=== PATIENT | female | born 1950 | race Caucasian/White ===

== ENCOUNTER 2016-12-23 08:44 | Outpatient (CLI) | payer MEDICARE, BC ==
--- NOTE | 2016-12-24 16:50 | Mammography Report ---
DIGITAL BILATERAL SCREENING MAMMOGRAM: 12/23/2016 HISTORY: A 66-year-old nulliparous female, asymptomatic. COMPARISON: 12/2014, 12/2013, 08/2012, 07/2011, 04/2010, 04/2009. TECHNIQUE: Routine CC and MLO projections were obtained of the breasts. FINDINGS: Parenchymal tissue within both breasts is heterogeneously dense, which may lower the sensi tivity of mammography; however, there are no dominant masses, suspicious microcalcifications, or seco ndary signs of malignancy. In comparison to the previous studies, there are no significant changes. The pattern of glandular asymmetric is stable given positioning differences. ASSESSMENT: NO MAMMOGRAPHIC EVIDENCE OF MALIGNANCY. NO SIGNIFICANT INTERVAL CHANGES. RECOMMENDATION: Screening mammography is recommended annually. BI-RADS category 1 - negative. STANDARD QUALIFYING STATEMENTS 1. This examination was reviewed with the aid of Computed-Aided Detection (CAD). 2. A negative or benign imaging report should not delay biopsy if clinically suspicious findings are present. Consider surgical consultation if warranted. More than 5% of cancers are not identified by i maging. 3. Dense breasts may obscure an underlying neoplasm. JOB #: [id number] EXT JOB #:[id number]
== END 2016-12-23 08:45 | disposition home or self-care (01) ==
LOC: DI 08:44
PROVIDERS: ATTEND Physician Assistant Medical
DX: Z12.31 Encounter for screening mammogram for malignant neoplasm of breast (principal)
CPT/HCPCS: 77067

== ENCOUNTER 2017-03-04 10:04 | Outpatient (CLI) | payer MEDICARE, BC ==
[2017-03-04 18:14] LABS: BASOPHILS % (AUTO) 0.8 %; EOSINOPHILS # (AUTO) 0.1 10^3/uL (0.0-0.7); EOSINOPHILS % (AUTO) 2.3 %; HCT - HEMATOCRIT 43.7 % (37.0-47.0); HGB - HEMOGLOBIN 14.4 g/dL (12.0-16.0); LYMPHOCYTES # (AUTO) 1.2 10^3/uL (1.5-3.5); LYMPHOCYTES % (AUTO) 20.3 %; MEAN CORPUSCULAR VOLUME 93.9 fL (81.0-99.0); MEAN PLATELET VOLUME 9.6 fL (7.9-10.8); MONOCYTES # (AUTO) 0.3 10^3/uL (0.0-1.0); MONOCYTES % (AUTO) 5.4 %; NEUTROPHILS # (AUTO) 4.3 10^3/uL (1.5-6.6); NEUTROPHILS % (AUTO) 71.2 %; NUCLEATED RED BLOOD CELLS AUTO 0.1 /100WBC; RED BLOOD COUNT 4.65 10^6/uL (4.20-5.40); RED CELL DISTRIBUTION WIDTH 13.2 % (12.0-15.0)
[2017-03-04 18:42] LABS: ALBUMIN/GLOBULIN RATIO 1.8 (1.0-2.2); BILIRUBIN,TOTAL 0.5 mg/dL (0.2-1.0); BUN - BLOOD UREA NITROGEN 22 mg/dL (6-20); CALCIUM 8.9 mg/dL (8.5-10.3); CARBON DIOXIDE - CO2 30 mmol/L (21-32); CHLORIDE 103 mmol/L (101-111); CHOL/HDL RATIO 3.3 (<4.4); CHOLESTEROL 190 mg/dL; CREATININE 0.8 mg/dL (0.4-1.0); GFR - MDRD 72 (>89); GLUCOSE 111 mg/dL (70-100); HDL CHOLESTEROL 57 mg/dL; POTASSIUM 4.1 mmol/L (3.5-5.0); SODIUM 139 mmol/L (135-145); TOTAL PROTEIN 6.8 g/dL (6.7-8.2); TRIGLYCERIDES 100 mg/dL; VLDL CHOLESTEROL 20 mg/dL
== END 2017-03-04 10:05 | disposition home or self-care (01) ==
LOC: LAB.F 10:04
PROVIDERS: ATTEND Physician Assistant Medical
DX: I10 Essential (primary) hypertension (principal); R73.09 Other abnormal glucose; E78.2 Mixed hyperlipidemia; Z79.899 Other long term (current) drug therapy
CPT/HCPCS: 36415; 80053; 80061; 84443; 85025

== ENCOUNTER 2017-12-23 15:15 | Outpatient (CLI) | payer MEDICARE, BC ==
--- NOTE | 2017-12-24 13:56 | Mammography Report ---
BILATERAL SCREENING MAMMOGRAM: 12/23/2017 COMPARISON: Mammogram 12/23/2016. INDICATION: Screening. TECHNIQUE: Routine CC and MLO projections were obtained of the breasts. FINDINGS: The breast parenchyma is extremely dense which may limit the sensitivity of mammography. No dominant mass, architectural distortion or concerning cluster of microcalcifications is seen. IMPRESSION: 1. BI-RADS CATEGORY 1 - NEGATIVE. 2. RECOMMEND ANNUAL SCREENING MAMMOGRAM. STANDARD QUALIFYING STATEMENTS: 1. This examination was reviewed with the aid of Computer-Aided Detection (CAD) . 2. A negative or benign imaging report should not delay biopsy if clinically suspicious findings are present. Consider surgical consultation if warranted. More than 5 % of cancers are not identified by imaging. 3. Dense breasts may obscure an underlying neoplasm. TD: 12/24/2017 13:55 BUDDY
== END 2017-12-23 15:16 | disposition home or self-care (01) ==
LOC: DI 15:15
PROVIDERS: ATTEND Physician Assistant Medical
DX: Z12.31 Encounter for screening mammogram for malignant neoplasm of breast (principal)
CPT/HCPCS: 77067

== ENCOUNTER 2018-03-10 08:36 | Outpatient (CLI) | payer MEDICARE, BC ==
[2018-03-10 10:44] LABS: BASOPHILS % (AUTO) 0.3 %; EOSINOPHILS # (AUTO) 0.2 10^3/uL (0.0-0.7); EOSINOPHILS % (AUTO) 4.1 %; HGB - HEMOGLOBIN 14.7 g/dL (12.0-16.0); LYMPHOCYTES # (AUTO) 1.6 10^3/uL (1.5-3.5); LYMPHOCYTES % (AUTO) 26.9 %; MEAN CORPUSCULAR HEMOGLOBIN 31.2 pg (27.0-31.0); MEAN CORPUSCULAR HGB CONC 34.4 g/dL (32.0-36.0); MEAN CORPUSCULAR VOLUME 90.6 fL (81.0-99.0); MEAN PLATELET VOLUME 9.1 fL (7.9-10.8); MONOCYTES # (AUTO) 0.5 10^3/uL (0.0-1.0); MONOCYTES % (AUTO) 8.8 %; NEUTROPHILS # (AUTO) 3.5 10^3/uL (1.5-6.6); NEUTROPHILS % (AUTO) 59.9 %; PLT - PLATELET COUNT 192 10^3/uL (130-450); RED BLOOD COUNT 4.71 10^6/uL (4.20-5.40); RED CELL DISTRIBUTION WIDTH 12.8 % (12.0-15.0); WHITE BLOOD COUNT 5.8 x10^3/uL (4.8-10.8)
[2018-03-10 11:51] LABS: ALBUMIN/GLOBULIN RATIO 1.7 (1.0-2.2); ALKALINE PHOSPHATASE 105 IU/L (42-121); ALT ALANINE AMINOTRANSFERASE 70 IU/L (10-60); AST ASPARTATE AMINOTRANSFERASE 49 IU/L (10-42); BILIRUBIN,TOTAL 0.6 mg/dL (0.2-1.0); BUN - BLOOD UREA NITROGEN 17 mg/dL (6-20); CALCIUM 8.8 mg/dL (8.5-10.3); CARBON DIOXIDE - CO2 28 mmol/L (21-32); CHLORIDE 102 mmol/L (101-111); CHOL/HDL RATIO 3.8 (<4.4); CHOLESTEROL 165 mg/dL; CREATININE 0.6 mg/dL (0.4-1.0); GFR - MDRD 100 (>89); GLUCOSE 113 mg/dL (70-100); HDL CHOLESTEROL 43 mg/dL; LDL CHOLESTEROL,CALCULATED 103 mg/dL; LDL/HDL RATIO 2.4 (<4.4); SODIUM 137 mmol/L (135-145); TOTAL PROTEIN 6.4 g/dL (6.7-8.2); VLDL CHOLESTEROL 19 mg/dL
[2018-03-11 14:47] LABS: HEPATITIS C ANTIBODY NON-REACTIVE (NON-REACTIVE)
== END 2018-03-10 08:37 | disposition home or self-care (01) ==
LOC: LAB.F 08:36
PROVIDERS: ATTEND Physician Assistant Medical
DX: I10 Essential (primary) hypertension (principal); R79.89 Other specified abnormal findings of blood chemistry; E78.2 Mixed hyperlipidemia; Z79.899 Other long term (current) drug therapy; Z78.9 Other specified health status; Z13.818 Encounter for screening for other digestive system disorders
CPT/HCPCS: 36415; 80053; 80061; 83721; 84443; 85025; 86803

== ENCOUNTER 2018-04-23 07:28 | Outpatient (CLI) | payer MEDICARE, BC ==
--- NOTE | 2018-04-23 12:25 | Ultrasound Report ---
Procedure Date: 04/23/2018 Accession Number: [id number] / [id number] Procedure: US - Head or Neck Soft Tissue CPT Code: FULL RESULT: EXAM: Head or Neck Soft Tissue DATE: 04/23/2018 8:20 AM CLINICAL HISTORY: THYROID NODULE,RIGHT,POSTMENOPAUSAL COMPARISON: None. TECHNIQUE: Real time sonographic imaging of the thyroid was performed by the respiratory care program director. Multiple union contract representative static images were saved for review. FINDINGS: THYROID GLAND: Right Lobe: 5.0 x 1.7 x 1.5 cm, volume 7 cc. Normal background echotexture. Right Lobe Nodules: Tiny cysts and solid nodules, the largest measuring 0.7 x 0.5 x 0.5 cm. No dominant suspicious nodule. Left Lobe: 4.8 x 1.5 x 0.9 cm, volume 3 cc. Normal background echotexture. Left Lobe Nodules: Tiny cysts, the largest measuring 0.7 x 0.6 x 0.4 cm.. Isthmus: 5 cm AP. Isthmic Nodules: None. LYMPH NODES: No adenopathy demonstrated in the central or lateral compartment. OTHER: None. IMPRESSION: 1. Tiny cysts and solid nodules bilaterally. No dominant suspicious nodule identified. Management recommendations are based on 2015 [place] [employer] Management Guidelines for Adult Patients with Thyroid Nodules and Differentiated Thyroid Cancer. RADIA
--- NOTE | 2018-04-23 12:26 | DEXA Report ---
Procedure Date: 04/23/2018 Accession Number: [id number] / [id number] Procedure: DEX - Dexa Spine and/or Hip CPT Code: FULL RESULT: EXAM: Dexa Spine and/or Hip DATE: 04/23/2018 8:45 AM CLINICAL HISTORY: THYROID NODULE,RIGHT,POSTMENOPAUSAL TECHNIQUE: Dual energy x-ray absorptiometry (DXA) was performed on a [employer]OT[employer] System. Regions measured are the AP Spine, femoral neck, and if needed forearm. COMPARISON: None. In accordance with the International Society for Clinical Densitometry (ISCD) guidelines, data from previous exams may be reanalyzed using current recommendations and techniques. This is done to allow a more accurate basis for comparison with the current study. FINDINGS: The data for the lumbar spine is as follows: BMD (g/cm/cm) T-SCORE Z-SCORE REGION L1 1.499 3.1 4.0 L2 1.570 3.1 4.0 L3 1.710 4.2 5.1 L4 1.613 3.4 4.3 TOTAL 1.597 3.6 4.4 NOTE: All evaluable vertebrae are used for classification The data for the hip is as follows: BMD (g/cm/cm) T-SCORE Z-SCORE REGION Neck 1.095 0.4 1.5 TOTAL 1.182 1.4 2.2 NOTE: The femoral neck or total proximal femur, whichever is lowest, is used for classification. IMPRESSION: THE WHO CLASSIFICATION BASED ON THE INTERNATIONAL REFERENCE STANDARD IS NORMAL. THE FRACTURE RISK IS NOT INCREASED. RECOMMENDATION: Patients with diagnosis of osteoporosis or osteopenia should have regular bone mineral density assessment. For those eligible for Medicare, routine testing is allowed once every 2 years. Testing frequency can be increased for patients who have rapidly progressing disease or for those who are receiving medical therapy to restore bone mass. COMMENT: World Health Organization (WHO) definitions for osteoporosis and osteopenia: NORMAL BMD: T-score at -1.0 or higher, fracture risk is low OSTEOPENIA BMD: T-score between -1.0 and -2.5, fracture risk is increased. OSTEOPOROSIS BMD: T-score at -2.5 or lower, fracture risk is high. National Osteoporosis Foundation recommends: 1. Obtain adequate dietary calcium (at least 1200 mg per day) and vitamin D (400-800 international units per day). 2. Participate, as appropriate, in regular weightbearing and muscle-strengthening exercise. 3. Avoid tobacco use and reduce alcohol and caffeine intake. 4. For more detailed information see the website at www.NOF.org.
== END 2018-04-23 07:29 | disposition home or self-care (01) ==
LOC: DI 07:28
PROVIDERS: ATTEND Physician Assistant Medical
DX: Z78.0 Asymptomatic menopausal state (principal); E04.2 Nontoxic multinodular goiter
CPT/HCPCS: 76536; 77080

== ENCOUNTER 2018-07-30 10:03 | Outpatient (CLI) | payer MEDICARE, BC ==
[2018-07-30 18:05] LABS: ALBUMIN 4.1 g/dL (3.2-5.5); BILIRUBIN,DIRECT 0.1 mg/dL (0.1-0.5); BILIRUBIN,TOTAL 0.6 mg/dL (0.2-1.0); TOTAL PROTEIN 6.7 g/dL (6.7-8.2)
== END 2018-07-30 10:04 | disposition home or self-care (01) ==
LOC: LAB.F 10:03
PROVIDERS: ATTEND Physician Assistant Medical
DX: R79.89 Other specified abnormal findings of blood chemistry (principal)
CPT/HCPCS: 36415; 80076

== ENCOUNTER 2018-11-16 08:00 | Outpatient (CLI) | payer MEDICARE, BC | END 2018-11-16 23:59 | disposition home or self-care (01) | LOC: LAB.R 08:00 | PROVIDERS: ATTEND Physician Assistant Medical | DX: J02.9 Acute pharyngitis, unspecified (principal) | CPT/HCPCS: 87070 ==

== ENCOUNTER 2019-06-16 08:20 | Outpatient (CLI) | payer MEDICARE, BC ==
--- NOTE | 2019-06-16 09:09 | Mammography Report ---
Reason: SCREENING MAMMO Procedure Date: 06/16/2019 Accession Number: [id number] / [id number] Procedure: MGS - Screening Mammo Dig Bilat CPT Code: FULL RESULT: EXAM: Screening Mammo Dig Bilat DATE: 06/16/2019 8:41 AM CLINICAL HISTORY: Routine screening TECHNIQUE: (B) - Bilateral CC and MLO views were obtained. COMPARISON: 12/23/2017, 12/23/2016, 01/09/2016, 01/08/2015 PARENCHYMAL PATTERN: (D) - The breasts demonstrate heterogeneously dense fibroglandular parenchyma bilaterally. FINDINGS: No significant interval change. There are no suspicious masses, calcifications, or areas of distortion. IMPRESSION: Negative examination. BI-RADS category 1. RECOMMENDATION: (ANNUAL) - Recommend routine annual screening mammography. BI-RADS CATEGORY: (1) - Negative. STANDARD QUALIFYING STATEMENTS: 1. This examination was not reviewed with the aid of Computer-Aided Detection (CAD). 2. A negative or benign imaging report should not preclude biopsy if clinically suspicious findings are present. 3. Dense breasts may obscure an underlying neoplasm. 4. This examination was reviewed without the aid of 3D breast imaging (tomosynthesis).
== END 2019-06-16 08:21 | disposition home or self-care (01) ==
LOC: DI.S 08:20
PROVIDERS: ATTEND Nurse Practitioner
DX: Z12.31 Encounter for screening mammogram for malignant neoplasm of breast (principal)
CPT/HCPCS: 77067

== ENCOUNTER 2019-06-16 08:26 | Outpatient (CLI) | payer MEDICARE, BC ==
[2019-06-16 17:46] LABS: BASOPHILS % (AUTO) 0.3 %; EOSINOPHILS # (AUTO) 0.2 10^3/uL (0.0-0.7); EOSINOPHILS % (AUTO) 2.9 %; HGB - HEMOGLOBIN 15.2 g/dL (12.0-16.0); LYMPHOCYTES # (AUTO) 1.5 10^3/uL (1.5-3.5); MEAN CORPUSCULAR HEMOGLOBIN 31.4 pg (27.0-31.0); MONOCYTES # (AUTO) 0.4 10^3/uL (0.0-1.0); MONOCYTES % (AUTO) 6.5 %; NEUTROPHILS # (AUTO) 3.8 10^3/uL (1.5-6.6); NEUTROPHILS % (AUTO) 64.8 %; PLT - PLATELET COUNT 214 10^3/uL (130-450); RED BLOOD COUNT 4.84 10^6/uL (4.20-5.40); RED CELL DISTRIBUTION WIDTH 12.6 % (12.0-15.0); WHITE BLOOD COUNT 5.9 x10^3/uL (4.8-10.8)
[2019-06-16 18:08] LABS: ALBUMIN 4.3 g/dL (3.2-5.5); ALBUMIN/GLOBULIN RATIO 1.7 (1.0-2.2); ALKALINE PHOSPHATASE 80 IU/L (42-121); ALT ALANINE AMINOTRANSFERASE 56 IU/L (10-60); AST ASPARTATE AMINOTRANSFERASE 47 IU/L (10-42); BILIRUBIN,TOTAL 0.7 mg/dL (0.2-1.0); BUN - BLOOD UREA NITROGEN 15 mg/dL (6-20); CALCIUM 8.8 mg/dL (8.5-10.3); CARBON DIOXIDE - CO2 29 mmol/L (21-32); CHLORIDE 101 mmol/L (101-111); CHOL/HDL RATIO 3.2 (<4.4); CHOLESTEROL 174 mg/dL; CREATININE 0.7 mg/dL (0.4-1.0); GFR - MDRD 83 (>89); GLUCOSE 106 mg/dL (70-100); HDL CHOLESTEROL 54 mg/dL; LDL CHOLESTEROL,CALCULATED 106 mg/dL; SODIUM 138 mmol/L (135-145); TOTAL PROTEIN 6.8 g/dL (6.7-8.2); VLDL CHOLESTEROL 14 mg/dL
== END 2019-06-16 08:27 | disposition home or self-care (01) ==
LOC: LAB.S 08:26
PROVIDERS: ATTEND Nurse Practitioner
DX: Z00.00 Encounter for general adult medical examination without abnormal findings (principal); E04.1 Nontoxic single thyroid nodule; E78.2 Mixed hyperlipidemia; I10 Essential (primary) hypertension; R73.01 Impaired fasting glucose; R74.8 Abnormal levels of other serum enzymes; Z79.899 Other long term (current) drug therapy
CPT/HCPCS: 36415; 80053; 80061; 83721; 84443; 85025

== ENCOUNTER 2019-08-01 08:00 | Outpatient (CLI) | payer MEDICARE, BC ==
[2019-08-01 18:45] LABS: H. PYLORIS ANTIGEN STL NEGATIVE (Negative)
== END 2019-08-01 23:59 | disposition home or self-care (01) ==
LOC: LAB.R 08:00
PROVIDERS: ATTEND Nurse Practitioner
DX: R10.9 Unspecified abdominal pain (principal); K21.9 Gastro-esophageal reflux disease without esophagitis
CPT/HCPCS: 87338

== ENCOUNTER 2019-08-24 12:26 | Day surgery (SDC) | payer MEDICARE, BC ==
[2019-08-24] MEDS ORDERED: fentaNYL 250 MCG/5 ML VIAL IVP ONE (12:27)
[2019-08-24] MEDS ORDERED: MIDAZOLAM 2 MG/2 ML VIAL IVP ONE (12:27)
[2019-08-24] MEDS ORDERED: LACTATED RINGERS 1,000 ML IV ONE ×2 (12:52→15:16)
[2019-08-24] MEDS ORDERED: LIDO GARGLE 30 ML BOTTLE PO ONE (15:11)
[2019-08-24] MEDS ORDERED: LIDO GARGLE 30 ML BOTTLE ONE (15:16)
[2019-08-24 15:53] VITALS: BP 133/70
== END 2019-08-24 12:27 | disposition home or self-care (01) ==
LOC: SDS 12:26
PROVIDERS: ATTEND Surgery
PROC: 0DB78ZX Excision of Stomach, Pylorus, Via Natural or Artificial Opening Endoscopic, Diagnostic (ICD-10-PCS; 2019-08-24)
PROC: 0DB48ZX Excision of Esophagogastric Junction, Via Natural or Artificial Opening Endoscopic, Diagnostic (ICD-10-PCS; 2019-08-24)
PROC: 0DB98ZX Excision of Duodenum, Via Natural or Artificial Opening Endoscopic, Diagnostic (ICD-10-PCS; principal; 2019-08-24 13:45)
DX: K21.0 Gastro-esophageal reflux disease with esophagitis (principal); K29.80 Duodenitis without bleeding; K29.50 Unspecified chronic gastritis without bleeding; E78.5 Hyperlipidemia, unspecified; I10 Essential (primary) hypertension; E66.3 Overweight; Z68.32 Body mass index [BMI] 32.0-32.9, adult; Z86.19 Personal history of other infectious and parasitic diseases; Z86.010 Personal history of colon polyps
CPT/HCPCS: 43239; 88305; A9270; J3010; J7120

== ENCOUNTER 2019-08-28 09:50 | Outpatient (CLI) | payer MEDICARE, BC ==
[2019-08-28] MEDS ORDERED: IOVERSOL 320 50 ML VIAL ONE (09:55)
[2019-08-28] MEDS ORDERED: IOVERSOL 320 100 ML VIAL IVP ONE ×2 (09:55→12:00)
[2019-08-28 11:25] LABS: ALBUMIN 4.2 g/dL (3.2-5.5); ALBUMIN/GLOBULIN RATIO 1.4 (1.0-2.2); BILIRUBIN,TOTAL 0.7 mg/dL (0.2-1.0); CALCIUM 8.8 mg/dL (8.5-10.3); CREATININE 0.7 mg/dL (0.4-1.0); TOTAL PROTEIN 7.1 g/dL (6.7-8.2)
[2019-08-28] MEDS ORDERED: IOVERSOL 320 50 ML VIAL PO ONE (12:00)
--- NOTE | 2019-08-28 22:16 | CT Report ---
Reason: FAM HX OF PANCREATIC CA, ABD PAIN, ELEVATED LFTS Procedure Date: 08/28/2019 Accession Number: [id number] / [id number] Procedure: CT - Abdomen/Pelvis W CPT Code: Final Report FULL RESULT: EXAM: CT ABDOMEN AND PELVIS EXAM DATE: 08/28/2019 11:59 AM. CLINICAL HISTORY: Family history of pancreatic cancer, abdominal pain, elevated liver function tests. COMPARISONS: None. TECHNIQUE: Routine helical CT imaging was performed through the abdomen and pelvis. IV contrast: Optiray 320 890 mL. Enteric contrast: Present. Reconstructions: Coronal and sagittal. In accordance with CT protocol optimization, one or more of the following dose reduction techniques were utilized for this exam: automated exposure control, adjustment of mA and/or KV based on patient size, or use of iterative reconstructive technique. FINDINGS: ABDOMEN: Liver: No significant abnormality. Stomach/Distal Esophagus: No significant abnormality. Gallbladder: Surgically absent. Bile Ducts: No pathologic biliary dilation. Small amount of pneumobilia, presumably a sequela of prior biliary sphincterotomy. Pancreas: No significant abnormality. Spleen: No significant abnormality. Kidneys: No suspicious solid appearing lesion. No hydronephrosis. Adrenals: No significant abnormality. Bowel: There is a moderate amount of retained colonic fecal material. No evidence of bowel obstruction. Severe sigmoid diverticulosis and moderate distal descending colon diverticulosis. No definite acute diverticulitis. Appendix: The appendix could not be identified with certainty. However, there are no secondary signs of appendicitis demonstrated at this time. Lymph Nodes: No pathologically enlarged nodes. Vasculature: Normal caliber aorta. Fluid: No significant free fluid. Abdominal Wall: No significant abnormality. Other: No significant abnormality. PELVIS: Uterus and Ovaries: No significant abnormality. Bladder: No significant abnormality. Lymph Nodes: No pathologically enlarged nodes. Fluid: No significant free fluid. Other: None. BONES: No suspicious bony lesions. There is moderate multilevel degenerative change within the spine. LOWER CHEST: No significant consolidation or effusion. IMPRESSION: 1. No acute abdominal or pelvic abnormality. 2. Prior cholecystectomy without pathologic biliary dilation. 3. There is severe sigmoid diverticulosis and moderate to severe distal descending colon diverticulosis without evidence of acute diverticulosis. There is no evidence of bowel obstruction. Moderate amount of retained colonic fecal matter is noted, suggestive of constipation. RADIA
== END 2019-08-28 09:51 | disposition home or self-care (01) ==
LOC: LAB 09:50
PROVIDERS: ATTEND Nurse Practitioner
DX: Z00.00 Encounter for general adult medical examination without abnormal findings (principal); E04.1 Nontoxic single thyroid nodule; E78.2 Mixed hyperlipidemia; Z79.899 Other long term (current) drug therapy; R73.01 Impaired fasting glucose; R79.89 Other specified abnormal findings of blood chemistry; I10 Essential (primary) hypertension; Z80.0 Family history of malignant neoplasm of digestive organs; R10.9 Unspecified abdominal pain
CPT/HCPCS: 36415; 74177; 80053; Q9967

== ENCOUNTER 2019-09-27 10:45 | Outpatient (CLI) | payer MEDICARE, BC ==
[2019-09-27] MEDS ORDERED: BARIUM SULFATE 148 GM POWDER PO ONE (13:51)
--- NOTE | 2019-09-27 16:11 | XRAY Report ---
Reason: ABDOMINAL PAIN Procedure Date: 09/27/2019 Accession Number: [id number] / [id number] Procedure: FL - Small Bowel Follow Through CPT Code: Final Report FULL RESULT: EXAM: SMALL BOWEL FOLLOW-THROUGH EXAM DATE: 09/27/2019 01:50 PM. CLINICAL HISTORY: ABDOMINAL PAIN. COMPARISONS: ABDOMEN/PELVIS W/ 08/28/2019 11:55 AM. TECHNIQUE: Routine small bowel follow-through technique. Fluoroscopy Time: 2 minutes 44 seconds. Number of images: 15 FINDINGS: Preliminary [employer] scout film: Surgical clips right upper quadrant. Degenerative change in the spine with mild lumbar dextroscoliosis. Duodenum: Normal duodenal mucosal pattern. No ulcers or diverticula identified. Jejunum: Normal mucosal pattern. No masses or obstruction. Ileum: Normal mucosal pattern. No masses or obstruction. The ileocecal valve is normal with passage of contrast into the cecum identified. Other: None. IMPRESSION: Normal small bowel follow-through. RADIA
== END 2019-09-27 10:46 | disposition home or self-care (01) ==
LOC: DI 10:45
PROVIDERS: ATTEND Surgery
DX: R10.9 Unspecified abdominal pain (principal)
CPT/HCPCS: 74250

== ENCOUNTER 2020-06-28 09:31 | Outpatient (CLI) | payer MEDICARE, BC ==
[2020-06-28 15:42] LABS: BASOPHILS % (AUTO) 0.2 %; EOSINOPHILS # (AUTO) 0.1 10^3/uL (0.0-0.7); EOSINOPHILS % (AUTO) 1.8 %; HGB - HEMOGLOBIN 15.5 g/dL (12.0-16.0); LYMPHOCYTES # (AUTO) 1.3 10^3/uL (1.5-3.5); LYMPHOCYTES % (AUTO) 26.7 %; MEAN CORPUSCULAR HEMOGLOBIN 32.4 pg (27.0-31.0); MEAN CORPUSCULAR VOLUME 95.2 fL (81.0-99.0); MEAN PLATELET VOLUME 10.5 fL (7.9-10.8); MONOCYTES # (AUTO) 0.3 10^3/uL (0.0-1.0); MONOCYTES % (AUTO) 6.6 %; NEUTROPHILS # (AUTO) 3.2 10^3/uL (1.5-6.6); NEUTROPHILS % (AUTO) 64.3 %; PLT - PLATELET COUNT 187 10^3/uL (130-450); RED BLOOD COUNT 4.79 10^6/uL (4.20-5.40); RED CELL DISTRIBUTION WIDTH 12.3 % (12.0-15.0)
[2020-06-28 15:46] LABS: ALBUMIN 4.5 g/dL (3.2-5.5); ALKALINE PHOSPHATASE 70 IU/L (42-121); ALT ALANINE AMINOTRANSFERASE 57 IU/L (10-60); AST ASPARTATE AMINOTRANSFERASE 41 IU/L (10-42); BILIRUBIN,TOTAL 0.9 mg/dL (0.2-1.0); BUN - BLOOD UREA NITROGEN 17 mg/dL (6-20); CALCIUM 9.1 mg/dL (8.5-10.3); CARBON DIOXIDE - CO2 28 mmol/L (21-32); CHLORIDE 100 mmol/L (101-111); CHOL/HDL RATIO 3.7 (<4.4); CHOLESTEROL 224 mg/dL; CREATININE 0.7 mg/dL (0.4-1.0); GLUCOSE 107 mg/dL (70-100); HDL CHOLESTEROL 60 mg/dL; LDL CHOLESTEROL,CALCULATED 141 mg/dL; LDL/HDL RATIO 2.4 (<4.4); SODIUM 137 mmol/L (135-145); TOTAL PROTEIN 6.8 g/dL (6.7-8.2); VLDL CHOLESTEROL 23 mg/dL
== END 2020-06-28 09:32 | disposition home or self-care (01) ==
LOC: LAB.S 09:31
PROVIDERS: ATTEND Nurse Practitioner
DX: I10 Essential (primary) hypertension (principal); R79.89 Other specified abnormal findings of blood chemistry; E78.2 Mixed hyperlipidemia
CPT/HCPCS: 36415; 80053; 80061; 83721; 84443; 85025

== ENCOUNTER 2020-11-01 06:16 | Day surgery (SDC) | payer MEDICARE, BC ==
[2020-11-01] MEDS ORDERED: LACTATED RINGERS 1,000 ML IV ONE ×2 (06:24→09:01)
[2020-11-01] MEDS ORDERED: MIDAZOLAM 2 MG/2 ML VIAL ONE ×4 (08:25→08:58)
[2020-11-01] MEDS ORDERED: fentaNYL 250 MCG/5 ML VIAL ONE (08:25)
[2020-11-01 09:18] VITALS: BP 124/73
== END 2020-11-01 06:17 | disposition home or self-care (01) ==
LOC: SDS 06:16
PROVIDERS: ATTEND Surgery
DX: Z12.11 Encounter for screening for malignant neoplasm of colon (principal); K57.30 Diverticulosis of large intestine without perforation or abscess without bleeding; K64.8 Other hemorrhoids; R23.3 Spontaneous ecchymoses; I10 Essential (primary) hypertension; Z86.010 Personal history of colon polyps
CPT/HCPCS: G0105; J3010; J7120

== ENCOUNTER 2020-11-19 09:57 | Outpatient (CLI) | payer MEDICARE, BC ==
--- NOTE | 2020-11-19 16:41 | Mammography Report ---
BILATERAL DIGITAL SCREENING MAMMOGRAM 3D/2D: 11/19/2020 CLINICAL: Routine screening. Comparison is made to exams dated: 06/16/2019 mammogram, 12/23/2017 mammogram, 12/23/2016 mammogram, 12/12 mammogram, and 01/08/2015 mammogram - [facility]. The tissue of both breasts is heterogeneously dense. This may lower the sensitivity of mammography. There is an oval focal asymmetry with an obscured margin in the left breast central to the nipple pos terior depth. No other significant masses, calcifications, or other findings are seen in either breast. IMPRESSION: INCOMPLETE: NEEDS ADDITIONAL IMAGING EVALUATION The oval focal asymmetry in the left breast is indeterminate. Additional views with possible ultrasound are recommended. This exam was interpreted at Station ID: [id number]. NOTE: For mammograms, a report in lay terms will be sent to the patient. Approximately 15% of breast malignancies will not be visualized mammographically. In the management of a palpable breast mass, a negative mammogram must not discourage biopsy of a clinically suspicious lesion. Electronically Signed By: Andrez Mccormick M.D. slc/:11/19/2020 16:17:22 ACR BI-RADS Category 0: Incomplete 3340F PARENCHYMAL PATTERN: (D) - The breast(s) demonstrate(s) heterogeneously dense fibroglandular lalito glynn. BI-RADS CATEGORY: (0) - 0 Mammo and US [id number] Immediate follow-up LATERALITY: (B)
== END 2020-11-19 09:58 | disposition home or self-care (01) ==
LOC: DI.S 09:57
DX: Z12.31 Encounter for screening mammogram for malignant neoplasm of breast (principal)

== ENCOUNTER 2020-12-11 10:51 | Outpatient (CLI) | payer MEDICARE, BC ==
--- NOTE | 2020-12-12 09:47 | Mammography Report ---
UNILATERAL LEFT DIGITAL DIAGNOSTIC MAMMOGRAM 3D/2D: 12/11/2020 CLINICAL: Patient returns today to evaluate a focal asymmetry in the left breast. Comparison is made to exams dated: 11/19/2020 mammogram, 06/16/2019 mammogram, 12/23/2017 mammogram, 12/23 mammogram, 01/09/2016 mammogram, and 01/08/2015 mammogram - [facility]. The ti ssue of left breast is heterogeneously dense. This may lower the sensitivity of mammography. Focal asymmetry in the left breast central to the nipple posterior depth. This is not seen in additi onal views. No other significant masses or calcifications are seen in the breast. IMPRESSION: NEGATIVE There is no mammographic evidence of malignancy. Focal asymmetry does not persist on additional views and is consistent with overlapping fibroglandula r tissue. A 1 year screening mammogram is recommended. Exam findings were conveyed to the patient. This exam was interpreted at Station ID: [id number]. NOTE: For mammograms, a report in lay terms will be sent to the patient. Approximately 15% of breast malignancies will not be visualized mammographically. In the management of a palpable breast mass, a negative mammogram must not discourage biopsy of a clinically suspicious lesion. Electronically Signed By: Andrez Mccormick M.D. slc/:12/11/2020 11:21:08 ACR BI-RADS Category 1: Negative 3341F PARENCHYMAL PATTERN: (D) - The breast(s) demonstrate(s) heterogeneously dense fibroglandular lalito glynn. BI-RADS CATEGORY: (1) - 1 RECOMMENDATION: (ANNUAL) - Recommend routine annual screening mammography. [id number] 1 year screening LATERALITY: (B)
== END 2020-12-11 10:52 | disposition home or self-care (01) ==
LOC: DI 10:51
PROVIDERS: ATTEND Nurse Practitioner
DX: R92.8 Other abnormal and inconclusive findings on diagnostic imaging of breast (principal)

== ENCOUNTER 2021-04-12 16:25 | Emergency (ER) | payer MEDICARE, BC ==
[2021-04-12 16:56] LABS: BASOPHILS % (AUTO) 0.1 %; EOSINOPHILS # (AUTO) 0.1 10^3/uL (0.0-0.7); EOSINOPHILS % (AUTO) 0.9 %; HCT - HEMATOCRIT 44.4 % (37.0-47.0); LYMPHOCYTES # (AUTO) 1.2 10^3/uL (1.5-3.5); LYMPHOCYTES % (AUTO) 13.5 %; MEAN CORPUSCULAR HEMOGLOBIN 31.4 pg (27.0-31.0); MEAN CORPUSCULAR HGB CONC 33.8 g/dL (32.0-36.0); MEAN CORPUSCULAR VOLUME 92.9 fL (81.0-99.0); MEAN PLATELET VOLUME 10.3 fL (7.9-10.8); MONOCYTES # (AUTO) 0.6 10^3/uL (0.0-1.0); MONOCYTES % (AUTO) 6.8 %; NEUTROPHILS # (AUTO) 6.7 10^3/uL (1.5-6.6); NEUTROPHILS % (AUTO) 78.3 %; PLT - PLATELET COUNT 181 10^3/uL (130-450); RED BLOOD COUNT 4.78 10^6/uL (4.20-5.40); RED CELL DISTRIBUTION WIDTH 13.7 % (12.0-15.0); WHITE BLOOD COUNT 8.5 x10^3/uL (4.8-10.8)
[2021-04-12 17:10] LABS: ALBUMIN 4.3 g/dL (3.2-5.5); ALBUMIN/GLOBULIN RATIO 1.2 (1.0-2.2); BILIRUBIN,TOTAL 1.7 mg/dL (0.2-1.0); CREATININE 0.5 mg/dL (0.4-1.0); POTASSIUM 3.6 mmol/L (3.5-5.0); TOTAL PROTEIN 7.8 g/dL (6.7-8.2)
[2021-04-12 17:41] LABS: BILIRUBIN,URINE NEGATIVE (NEGATIVE); GLUCOSE, URINE (UA) NEGATIVE (NEGATIVE); KETONES,URINE (UA) NEGATIVE (NEGATIVE); LEUKOCYTE ESTERASE, URINE NEGATIVE (NEGATIVE); NITRITE,URINE NEGATIVE (NEGATIVE); OCCULT BLOOD,URINE MODERATE (NEGATIVE); PH,URINE 6.5 PH (5.0-7.5); PROTEIN,URINE NEGATIVE (NEGATIVE); UROBILINOGEN,URINE 0.2 (NORMAL) E.U./dL (NORMAL)
[2021-04-12 17:42] LABS: CLARITY,URINE CLEAR (CLEAR)
[2021-04-12 18:01] LABS: BACTERIA,URINE Rare /HPF (None Seen); SQUAMOUS EPITHELIAL CELL,UR RARE Squamous (<= Few); WBC,URINE 0-3 /HPF (0-5)
--- NOTE | 2021-04-12 18:06 | ED Physician Documentation ---
PD HPI ABD PAIN - Stated complaint Stated Complaint: ABD PX - Chief complaint Chief Complaint: Abd Pain - History obtained from History obtained from: Patient - History of Present Illness Timing - onset: How many months ago (1-2) Timing - details: Gradual onset, Still present (more consistent and persistent the last week.), Intermittant Quality: Cramping, Aching, Pain Location: Epigastric Radiation: Upper back. No: Chest, Right flank Improved by: Laying still Worsened by: Eating, Palpation. No: Breathing Associated symptoms: Nausea, Loss of appetite, Weight loss (mild). No: Fever, Vomiting, Diarrhea, Melena, Chest pain Similar symptoms before: Has not had sx before Recently seen: Not recently seen Review of Systems Constitutional: denies: Fever, Chills Nose: denies: Rhinorrhea / runny nose, Congestion Throat: denies: Sore throat Respiratory: denies: Cough GI: reports: Abdominal Pain, Nausea. denies: Abdominal Swelling, Vomiting, Constipation, Diarrhea : denies: Dysuria, Frequency Skin: denies: Rash, Lesions Neurologic: reports: Generalized weakness PD PAST MEDICAL HISTORY - Past Medical History Past Medical History: Yes Cardiovascular: Hypertension, High cholesterol Respiratory: None Endocrine/Autoimmune: None GI: GERD, Colon polyps, Hepatitis, Diverticulitis, Cholelithiasis : None HEENT: None Psych: None Musculoskeletal: Osteoarthritis Derm: None - Past Surgical History Past Surgical History: Yes General: Cholecystectomy, Appendectomy Ortho: Spine surgery HEENT: Rhinoplasty, Tonsil/Adenoidectomy - Present Medications Home Medications: Ambulatory Orders Medication Instructions Recorded Confirmed hydroCHLOROthiazide [Hydrodiuril] 12.5 mg PO DAILY 09/11/15 04/12/21 Omeprazole Magnesium 20 mg PO PRN PRN 08/24/19 04/12/21 Naproxen Sodium [Naprelan] 375 mg PO BID PRN #15 tab 04/13/21 Ondansetron Odt [Zofran] 4 mg TL Q6H PRN #10 tablet 04/13/21 oxyCODONE [Roxicodone] 5 mg PO Q4-6H PRN #18 tablet 04/13/21 - Allergies Allergies/Adverse Reactions: Allergies Allergy/AdvReac Type Severity Reaction Status Date / Time codeine Allergy Nausea Verified 04/12/21 16:41 shellfish derived AdvReac Emesis Verified 04/12/21 16:41 - Social History Does the pt smoke?: No Smoking Status: Never smoker Does the pt drink ETOH?: Yes ETOH Use: Wine, Beer, Liquor Does the pt have substance abuse?: No - Immunizations Immunizations are current?: Yes - POLST Patient has POLST: Yes PD ED PE NORMAL - Vitals Vital signs reviewed: Yes - General General: Alert and oriented X 3, No acute distress, Well developed/nourished - HEENT HEENT: PERRL (nonicteric), Pharynx benign - Neck Neck: Supple, no meningeal sign, No adenopathy - Cardiac Cardiac: RRR, No murmur - Respiratory Respiratory: Clear bilaterally - Abdomen Abdomen: Normal bowel sounds, Soft, Non distended, Other (tender epigastric and RUQ area. ) - Female Female : Deferred - Rectal Rectal: Deferred - Back Back: No CVA TTP - Derm Derm: Normal color, Warm and dry - Extremities Extremities: No edema, No calf tenderness / cord - Neuro Neuro: Alert and oriented X 3, No motor deficit, Normal speech Results - Vitals Vitals: Oxygen O2 Source Room air - Labs Labs: Laboratory Tests 04/12/21 04/12/21 04/12/21 16:48 16:53 16:53 WBC 8.5 RBC 4.78 Hgb 15.0 Hct 44.4 MCV 92.9 MCH 31.4 H MCHC 33.8 RDW 13.7 Plt Count 181 MPV 10.3 Neut # (Auto) 6.7 H Lymph # (Auto) 1.2 L Griggs # (Auto) 0.6 Eos # (Auto) 0.1 Baso # (Auto) 0.0 Absolute Nucleated RBC 0.00 Nucleated RBC % 0.0 Sodium 135 Potassium 3.6 Chloride 98 L Carbon Dioxide 26 Anion Gap 11.0 BUN 11 Creatinine 0.5 Estimated GFR (MDRD) 122 Glucose 108 H Calcium 9.0 Total Bilirubin 1.7 H AST 203 H ALT 314 H Alkaline Phosphatase 862 H Total Protein 7.8 Albumin 4.3 Globulin 3.5 Albumin/Globulin Ratio 1.2 Lipase 48 Urine Color YELLOW Urine Clarity CLEAR Urine pH 6.5 Ur Specific Strong 1.010 Urine Protein NEGATIVE Urine Glucose (UA) NEGATIVE Urine Ketones NEGATIVE Urine Occult Blood MODERATE H Urine Nitrite NEGATIVE Urine Bilirubin NEGATIVE Urine Urobilinogen 0.2 (NORMAL) Ur Leukocyte Esterase NEGATIVE Urine RBC 6-10 H Urine WBC 0-3 Ur Squamous Epith Cells RARE Squamous Urine Bacteria Rare Ur Microscopic Review INDICATED Urine Culture Comments NOT INDICATED - Rads (name of study) upper abd U/S Radiology: Prelim report reviewed (CBD 9 mm, with dilated intrahepatic ducts. s/p cholcystectomy. ), See rad report PD MEDICAL DECISION MAKING - ED course Complexity details: reviewed results, re-evaluated patient (pain much improved with meds. Patient is comfortable with outpatient meds/follow up, given info that GI does not feel emergent intervention needed (would not do scope over the weekend unless worse).), considered differential, d/w patient, d/w franchise field consultant (Talked with GI at [facility], who felt patient did not need hospitalization, given the moderate elevation of numbers over longer time, with pain controllable. Presume ductal flow limitation (stricture/scarring/sludge) and will need eval/likely ERCP, but can be done urgently outpatient. Requests CT) Departure - Departure Disposition: 01 Home, Self Care Clinical Impression: Upper abdominal pain, Elevated liver function tests, Bile duct abnormality Condition: Stable Record reviewed to determine appropriate education?: Yes Follow-Up: Lana Mercado ARNP [Primary Care Provider] - Eugenia Camarillo DO [Physician No Access] - Prescriptions: Naproxen Sodium [Naprelan] 375 mg PO BID PRN #15 tab PRN Reason: Pain oxyCODONE [Roxicodone] 5 mg PO Q4-6H PRN #18 tablet PRN Reason: Pain Ondansetron Odt [Zofran] 4 mg TL Q6H PRN #10 tablet PRN Reason: Nausea / Vomiting Comments: Your liver function tests are elevated and your ultrasound and CT scan both show some dilation of the common bile duct and the intrahepatic ducts. This suggests you have some impaired flow through the common bile duct causing back pressuring. There is no signs of elevation or inflammation of the pancreas matteo sandoval. Liquid diet mainly over the next few days with no fatty foods in particular. Use ondansetron if needed for nausea. Naproxen anti-inflammatory twice daily for the next several days to week. To that add oxycodone if needed for worse pain. Call Dr. Camarillo's office, gastroenterology at the [facility] phone number [phone] first thing Thursday to arrange a close follow-up. When you contact the office, make it initially clear that you were seen in the emergency room and we talked with Dr. Camarillo who is on-call and she wanted to see you promptly in the office and so to have been very urgent follow-up appointment. Return to the ER if worsening symptoms including uncontrolled pain, repetitive vomiting, any fever at all, blood in your vomit or stool, or any other concerns. Discharge Date/Time: 04/13/21 04:20
[2021-04-12] MEDS ORDERED: KETOROLAC 15 MG/ML VIAL IVP STA (18:35)
[2021-04-12] MEDS ORDERED: HYDROmorphone 1 MG/ML CARPUJECT IVP STA ×2 (18:35→22:29)
[2021-04-12] MEDS ORDERED: ONDANSETRON 4 MG/2 ML VIAL IVP STA (18:35)
[2021-04-12] MEDS ORDERED: SODIUM CHLORIDE 0.9% 1,000 ML IV STA (18:35)
--- NOTE | 2021-04-12 20:48 | Ultrasound Report ---
PROCEDURE: Abdomen Limited INDICATIONS: upper abd pain for days; elevated LFTs; s/p CCY TECHNIQUE: Real-time focused scanning was performed of the abdomen, with image documentation. COMPARISON: CT abdomen pelvis 08/28/2019, ultrasound abdomen 12/17/2013. FINDINGS: The visualized liver appears slightly increased in echogenicity with coarse sonographic echotexture s uggestive of fatty infiltration. The gallbladder is surgically absent. There is intrahepatic biliary ductal dilatation. The visualized common bile duct is also dilated, loren suring up to 1.0 cm. The pancreas is not well visualized sonographically. The right kidney measures up to 11.1 cm. No hydronephrosis. IMPRESSION: 1. Intra and extra hepatic biliary ductal dilatation, with the common bile duct measuring up to 1.0 c m. The findings are nonspecific and the differential includes reservoir effect from prior cholecystec sabas, a nonvisualized obstructing stone or mass, or ampullary stenosis. Recommend correlation clinica lly. Reviewed by: Joshua Brewer MD on 04/12/2021 8:47 PM PDT Approved by: Joshua Brewer MD on 04/12/2021 8:47 PM PDT Station ID: [id number]
[2021-04-12] MEDS ORDERED: diphenhydrAMINE INJ 50 MG/ML VIAL IVP STA (22:56)
[2021-04-12] MEDS ORDERED: IOVERSOL 320 100 ML VIAL IVP ONE (23:04)
[2021-04-12] MEDS ORDERED: LORazepam 2 MG/ML VIAL IVP STA (23:08)
[2021-04-13] MEDS ORDERED: IOVERSOL 320 100 ML VIAL IVP ONE (01:59)
[2021-04-13] MEDS ORDERED: oxyCODONE/ACET 5/325 Prepack 4 PO STA (03:36)
[2021-04-13] MEDS ORDERED: HYDROmorphone 1 MG/ML CARPUJECT IVP STA (03:36)
[2021-04-13 04:18] VITALS: BP 161/103
--- NOTE | 2021-04-13 08:04 | CT Report ---
PROCEDURE: ABDOMEN W/WO INDICATIONS: upper abd pain; elevated LFTs CONTRAST: IV CONTRAST: Optiray 320 ml: 100 PO CONTRAST: *NO PO CONTRAST TECHNIQUE: Noncontrast 5 mm thick sections acquired from the diaphragms to the symphysis. 5 mm coronal and sagi ttal reformats were then performed. For radiation dose reduction, the following was used: automated exposure control, adjustment of mA and/or kV according to patient size. COMPARISON: Limited abdominal ultrasound dated 04/12/2021, CT abdomen and pelvis dated 08/28/2019. FINDINGS: Image quality: Excellent. Lung bases: Lung bases are clear. Heart size is normal. Liver: The intrahepatic biliary ducts are diffusely dilated, and there is vague central hypodensity a t the hilum suggesting the presence of a possible cholangiocarcinoma. There is a tiny amount of air i n the biliary tree, likely from previous biliary enteric anastomosis. Adrenal glands: Unremarkable. Solid organs: Spleen has normal size and enhancement. Gallbladder is surgically absent. Pancreas enhances normally. Kidneys are normal in size and enhancement. No hydronephrosis or nephro lithiasis. Peritoneum and bowel: Unenhanced bowel loops are normal in caliber and wall thickness. No free flui d or air. Nodes and vessels: There is subtle ill-defined anterior adenopathy surrounding the common hepatic art edilberto extending to the biliary hilum. This is best appreciated on image 25/8. No periaortic adenopathy. No retroperitoneal or mesenteric adenopathy by size criteria. Aorta and inferior vena cava are norm al in size. Miscellaneous: No ventral hernias. Bones: No suspicious bony lesions. No vertebral body compression fractures. IMPRESSION: 1. Remote cholecystectomy, air in the biliary tree is likely secondary to previous biliary enteric an astomosis. 2. There is biliary obstruction at the level of the hilum. There is biliary hilar/periportal adenopat hy. Consider cholangiocarcinoma obstructing the iliac hilum. Consider adenopathy compressing on the b iliary tree. PET/CT may be helpful. A preliminary report with the above findings was provided at the time of the study by [employer]. Reviewed by: Destin Sam MD on 04/13/2021 7:02 AM DANIELE Approved by: Destin Sam MD on 04/13/2021 7:02 AM DANIELE Station ID: [id number]
== END 2021-04-13 04:20 | disposition home or self-care (01) ==
LOC: ED 16:25
DX: K83.9 Disease of biliary tract, unspecified (principal); R79.89 Other specified abnormal findings of blood chemistry; I10 Essential (primary) hypertension
CPT/HCPCS: 36415; 74170; 76705; 80053; 81001; 83690; 85025; 96374; 96375; 96376; 99284; 99285; J1170; J1200; J2060; Q9967; 81003; 87086

== ENCOUNTER 2021-04-24 21:34 | Emergency (ER) | payer MEDICARE, BC ==
[2021-04-24 21:59] LABS: GLUCOSE, URINE (UA) NEGATIVE (NEGATIVE); KETONES,URINE (UA) 15 mg/dL (NEGATIVE); LEUKOCYTE ESTERASE, URINE TRACE (NEGATIVE); NITRITE,URINE NEGATIVE (NEGATIVE); OCCULT BLOOD,URINE LARGE (NEGATIVE); PH,URINE 6.5 PH (5.0-7.5); PROTEIN,URINE 30 mg/dL (NEGATIVE); UROBILINOGEN,URINE 2 E.U./dL (NORMAL)
[2021-04-24 22:01] LABS: CLARITY,URINE CLEAR (CLEAR)
[2021-04-24 22:03] LABS: BILIRUBIN,URINE NEGATIVE (NEGATIVE); ICTOTEST,URINE NEGATIVE
[2021-04-24 22:05] LABS: BACTERIA,URINE Few /HPF (None Seen); SQUAMOUS EPITHELIAL CELL,UR FEW Squamous (<= Few); WBC,URINE 0-3 /HPF (0-5)
[2021-04-24 22:34] LABS: BASOPHILS % (AUTO) 0.2 %; EOSINOPHILS % (AUTO) 0.2 %; HCT - HEMATOCRIT 38.3 % (37.0-47.0); LYMPHOCYTES # (AUTO) 0.6 10^3/uL (1.5-3.5); LYMPHOCYTES % (AUTO) 6.4 %; MEAN CORPUSCULAR HEMOGLOBIN 31.6 pg (27.0-31.0); MEAN CORPUSCULAR HGB CONC 33.9 g/dL (32.0-36.0); MEAN PLATELET VOLUME 10.9 fL (7.9-10.8); MONOCYTES # (AUTO) 0.9 10^3/uL (0.0-1.0); MONOCYTES % (AUTO) 9.1 %; NEUTROPHILS # (AUTO) 7.9 10^3/uL (1.5-6.6); NEUTROPHILS % (AUTO) 83.7 %; PLT - PLATELET COUNT 101 10^3/uL (130-450); RED BLOOD COUNT 4.12 10^6/uL (4.20-5.40); RED CELL DISTRIBUTION WIDTH 13.5 % (12.0-15.0); WHITE BLOOD COUNT 9.4 x10^3/uL (4.8-10.8)
[2021-04-24 22:47] LABS: ALBUMIN 3.5 g/dL (3.2-5.5); ALBUMIN/GLOBULIN RATIO 1.1 (1.0-2.2); BILIRUBIN,TOTAL 1.9 mg/dL (0.2-1.0); CALCIUM 8.6 mg/dL (8.5-10.3); CREATININE 0.6 mg/dL (0.4-1.0); POTASSIUM 3.2 mmol/L (3.5-5.0); TOTAL PROTEIN 6.7 g/dL (6.7-8.2)
--- NOTE | 2021-04-24 22:47 | ED Physician Documentation ---
PD HPI FEVER - Stated complaint Stated Complaint: FEVER, POST OP - Chief complaint Chief Complaint: Fever - History obtained from History obtained from: Patient - History of Present Illness Timing - onset: Today Timing details: Abrupt onset Pain level now: 2 Associated symptoms: Chills, Abdominal pain. No: Dry cough, Productive cough Similar symptoms before: Diagnosis (biliary stricture) Recently seen: Emergency Dept, Surgery - Additional information Additional information: T+R from this ED 04/12 for abdominal pain, found to have abnormal LFTs. She had open cholecystectomy approximately 30 years ago. [facility] ED physician consulted [facility] and patient was discharged and then, as instructed, followed up with [facility]. She underwent ERCP 2 days ago at [facility] (04/22) and stent was placed due to biliary stricture. Patient says yesterday she felt chills/sweats, thought she might be febrile but didn't have a working thermometer. Today she again had chills/sweats and was able to get a thermometer, and she measured fever 102.5 and thus comes to ED as per instructions Review of Systems Constitutional: reports: Fever, Chills, Sweats Cardiac: reports: Reviewed and negative Respiratory: reports: Reviewed and negative GI: reports: Abdominal Pain (patient says the abdominal pain is neither better nor worse than it's been since procedure). denies: Nausea, Vomiting, Constipation, Diarrhea : reports: Other (dark urine). denies: Dysuria, Frequency Skin: reports: Reviewed and negative Musculoskeletal: reports: Reviewed and negative Neurologic: reports: Headache (mild generalized) PD PAST MEDICAL HISTORY - Past Medical History Cardiovascular: Hypertension, High cholesterol Respiratory: None Endocrine/Autoimmune: None GI: GERD, Colon polyps, Hepatitis, Diverticulitis, Cholelithiasis : None HEENT: None Psych: None Musculoskeletal: Osteoarthritis Derm: None - Past Surgical History Past Surgical History: Yes General: Cholecystectomy, Appendectomy Ortho: Spine surgery HEENT: Rhinoplasty, Tonsil/Adenoidectomy - Present Medications Home Medications: Ambulatory Orders Medication Instructions Recorded Confirmed hydroCHLOROthiazide [Hydrodiuril] 12.5 mg PO DAILY 09/11/15 04/25/21 - Allergies Allergies/Adverse Reactions: Allergies Allergy/AdvReac Type Severity Reaction Status Date / Time codeine Allergy Nausea Verified 04/24/21 21:50 shellfish derived AdvReac Emesis Verified 04/24/21 21:50 - Social History Does the pt smoke?: No Smoking Status: Never smoker Does the pt drink ETOH?: Yes Does the pt have substance abuse?: No - Immunizations Immunizations are current?: Yes - POLST Patient has POLST: Yes PD ED PE NORMAL - Vitals Vital signs reviewed: Yes - General General: Alert and oriented X 3, No acute distress, Well developed/nourished - HEENT HEENT: Moist mucous membranes - Neck Neck: Supple, no meningeal sign - Cardiac Cardiac: No murmur - Respiratory Respiratory: No respiratory distress, Clear bilaterally - Back Back: No CVA TTP PD ED PE EXPANDED - Cardiac Cardiac: Tachy, Regular Rhythm - Abdomen Abdomen: Tender to palpation (limited to epigastrium, moderately tender without rebound) Results - Vitals Vitals: Vital Signs - 24 hr 04/24/21 04/25/21 04/25/21 21:48 01:30 01:34 Temperature 37.4 C 37.0 C Heart Rate 109 H 87 Respiratory 16 17 16 Rate Blood Pressure 164/78 H 144/79 H O2 Saturation 97 100 Oxygen O2 Source Room air - Labs Labs: Laboratory Tests 04/24/21 04/24/21 04/24/21 21:52 22:28 22:28 WBC 9.4 RBC 4.12 L Hgb 13.0 Hct 38.3 MCV 93.0 MCH 31.6 H MCHC 33.9 RDW 13.5 Plt Count 101 L MPV 10.9 H Neut # (Auto) 7.9 H Lymph # (Auto) 0.6 L [place] # (Auto) 0.9 Eos # (Auto) 0.0 Baso # (Auto) 0.0 Absolute Nucleated RBC 0.00 Nucleated RBC % 0.0 Sodium 129 L Potassium 3.2 L Chloride 96 L Carbon Dioxide 23 Anion Gap 10.0 BUN 15 Creatinine 0.6 Estimated GFR (MDRD) 99 Glucose 129 H Lactic Acid Calcium 8.6 Total Bilirubin 1.9 H AST 120 H ALT 168 H Alkaline Phosphatase 590 H Total Protein 6.7 Albumin 3.5 Globulin 3.2 Albumin/Globulin Ratio 1.1 Lipase 34 Urine Color YELLOW Urine Clarity CLEAR Urine pH 6.5 Ur Specific [place] 1.015 Urine Protein 30 H Urine Glucose (UA) NEGATIVE Urine Ketones 15 H Urine Occult Blood LARGE H Urine Nitrite NEGATIVE Urine Bilirubin NEGATIVE Urine Urobilinogen 2 H Ur Leukocyte Esterase TRACE H Urine RBC 6-10 H Urine WBC 0-3 Ur Squamous Epith Cells FEW Squamous Urine Bacteria Few Ur Microscopic Review INDICATED Urine Culture Comments INDICATED Nasal Adenovirus (PCR) Nasal B. parapertussis DNA (PCR) Nasal Coronavir 229E PCR Nasal Coronavir HKU1 PCR Nasal Coronavir NL63 PCR Nasal Coronavir OC43 PCR Nasal Enterovir/Rhinovir PCR Nasal Influenza B PCR Nasal Influenza A PCR Nasal Parainfluen 1 PCR Nasal Parainfluen 2 PCR Nasal Parainfluen 3 PCR Nasal Parainfluen 4 PCR Nasal RSV (PCR) Nasal B.pertussis DNA PCR Nasal C.pneumoniae (PCR) Rodríguez Human Metapneumo PCR Nasal M.pneumoniae (PCR) Nasal SARS-CoV-2 (PCR) 04/24/21 04/24/21 22:28 23:30 WBC RBC Hgb Hct MCV MCH MCHC RDW Plt Count MPV Neut # (Auto) Lymph # (Auto) [place] # (Auto) Eos # (Auto) Baso # (Auto) Absolute Nucleated RBC Nucleated RBC % Sodium Potassium Chloride Carbon Dioxide Anion Gap BUN Creatinine Estimated GFR (MDRD) Glucose Lactic Acid 0.8 Calcium Total Bilirubin AST ALT Alkaline Phosphatase Total Protein Albumin Globulin Albumin/Globulin Ratio Lipase Urine Color Urine Clarity Urine pH Ur Specific [place] Urine Protein Urine Glucose (UA) Urine Ketones Urine Occult Blood Urine Nitrite Urine Bilirubin Urine Urobilinogen Ur Leukocyte Esterase Urine RBC Urine WBC Ur Squamous Epith Cells Urine Bacteria Ur Microscopic Review Urine Culture Comments Nasal Adenovirus (PCR) NOT DETECTED Nasal B. parapertussis DNA (PCR) NOT DETECTED Nasal Coronavir 229E PCR NOT DETECTED Nasal Coronavir HKU1 PCR NOT DETECTED Nasal Coronavir NL63 PCR NOT DETECTED Nasal Coronavir OC43 PCR NOT DETECTED Nasal Enterovir/Rhinovir PCR NOT DETECTED Nasal Influenza B PCR NOT DETECTED Nasal Influenza A PCR NOT DETECTED Nasal Parainfluen 1 PCR NOT DETECTED Nasal Parainfluen 2 PCR NOT DETECTED Nasal Parainfluen 3 PCR NOT DETECTED Nasal Parainfluen 4 PCR NOT DETECTED Nasal RSV (PCR) NOT DETECTED Nasal B.pertussis DNA PCR NOT DETECTED Nasal C.pneumoniae (PCR) NOT DETECTED Rodríguez Human Metapneumo PCR NOT DETECTED Nasal M.pneumoniae (PCR) NOT DETECTED Nasal SARS-CoV-2 (PCR) NOT DETECTED - Rads (name of study) CT A/P with IV contrast Radiology: Prelim report reviewed, See rad report PD MEDICAL DECISION MAKING - ED course Complexity details: reviewed results, re-evaluated patient, considered differential, d/w patient ED course: This patient was in ED during [employer] downtime; please refer to paper chart regarding discharge time and IV antibiotic order. D/W Dr. Zuleta ([facility]), recommends CT A/P. I then recontacted Dr. Zuleta regarding the findings on CT. Findings on CT do not demonstrate obvious source of patient's fever; Dr. Huff recommends d/c with 5 days of PO antibiotic. She recommends "oral equivalent of ceftriaxone"; I asked if by this she means a 3rd-generation cephalosporin and she says this would be appropriate. Patient is given 1 gram IV ceftriaxone prior to d/c, rx for suprax (hand written rx, as [employer] is down at time of discharge). Patient is comfortable with this plan, afebrile for entire ED stay including prior to d/c, will return if worse. Dr. Zuleta says that someone from the office will contact patient later this morning to reassess and give further instruction regarding follow up Departure - Departure Disposition: 01 Home, Self Care Discharge Date/Time: 04/25/21 03:00
[2021-04-24] MEDS ORDERED: IOVERSOL 320 100 ML VIAL IVP ONE (23:42)
[2021-04-25] MEDS ORDERED: IOVERSOL 320 100 ML VIAL IVP ONE (00:24)
[2021-04-25 00:41] LABS: B. PARAPERTUSSIS- RESP PCR PAN NOT DETECTED; B. PERTUSSIS- RESP PCR PANEL NOT DETECTED; C. PNEUMONIAE- RESP PCR PANEL NOT DETECTED; CORONAVIRUS 229E-RESP PCR NOT DETECTED; CORONAVIRUS HKU1-RESP PCR NOT DETECTED; CORONAVIRUS NL63-RESP PCR NOT DETECTED; CORONAVIRUS OC43-RESP PCR NOT DETECTED; HUMAN METAPNEUMOVIRUS NOT DETECTED; INFLUENZA A- RESP PCR PANEL NOT DETECTED; INFLUENZA B - RESP PCR PANEL NOT DETECTED; M. PNEUMONIAE- RESP PCR PANEL NOT DETECTED; PARAINFLUENZA VIRUS 1 NOT DETECTED; PARAINFLUENZA VIRUS 2 NOT DETECTED; PARAINFLUENZA VIRUS 3 NOT DETECTED; PARAINFLUENZA VIRUS 4 NOT DETECTED; RHINOVIRUS/ENTEROVIRUS NOT DETECTED; RSV- RESP PCR PANEL NOT DETECTED; SARS-CoV-2 -RESP PCR PANEL NOT DETECTED
[2021-04-25 01:31] VITALS: BP 144/79
[2021-04-25] MEDS ORDERED: SODIUM CHLORIDE 0.9% 1,000 ML IV STA (01:31)
[2021-04-25] MEDS ORDERED: HYDROmorphone 1 MG/ML CARPUJECT IVP STA (01:31)
[2021-04-25] MEDS ORDERED: cefTRIAXone 1 GM VIAL ONE (02:32)
--- NOTE | 2021-04-25 15:24 | CT Report ---
PROCEDURE: Abdomen/Pelvis W INDICATIONS: postoperative fever CONTRAST: IV CONTRAST: Optiray 320 ml: 100 PO CONTRAST: *NO PO CONTRAST TECHNIQUE: After the administration of intravenous contrast, 5 mm thick sections acquired from the diaphragms to the symphysis. 5 mm thick coronal and sagittal reformats were acquired. For radiation dose reducti on, the following was used: automated exposure control, adjustment of mA and/or kV according to savanna ent size. COMPARISON: CT abdomen 04/13/2021 FINDINGS: Image quality: Excellent. ABDOMEN: Lung bases: Lung bases are clear. Heart size is normal. Solid organs: Liver demonstrates pneumobilia within the right lobe. Gallbladder nonvisualized. Bilia ry stent is present. There is persistent appearance of intrahepatic biliary dilation. There is narrow ing of the distal main portal vein and proximal right and left branches. There is ill-defined hypoatt enuation within this region as noted on prior CT. Pancreas enhances normally. No adrenal nodules. K idneys demonstrate normal size and enhancement, without hydronephrosis. Nonobstructing right renal c alcification. Peritoneum and bowel: Bowel loops are nonobstructive. There is stranding noted within the pericoloni c fat adjacent to the descending colon. No free fluid or air. Colonic diverticula are noted predomin antly within the left colon. Nodes and vessels: No retroperitoneal or mesenteric adenopathy by size criteria. Aorta and inferior vena cava are normal in size. Miscellaneous: Fat-containing ventral hernia is present. PELVIS: Genitourinary: Bladder wall thickness is normal. Miscellaneous: No inguinal hernias or adenopathy. Bones: No suspicious bony lesions. No vertebral body compression fractures. IMPRESSION: 1. Interval cholecystectomy with biliary stent and pneumobilia. 2. 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 3. Pericolonic stranding adjacent to the right colon possibly related to cholecystectomy changes. No abscess. While developing colitis cannot be excluded, is felt to be less likely. The above findings are concordant with preliminary report. Reviewed by: Marilee Thompson MD on 04/25/2021 3:23 PM PDT Approved by: Marilee Thompson MD on 04/25/2021 3:23 PM PDT Station ID: [id number]
== END 2021-04-25 03:00 | disposition home or self-care (01) ==
LOC: ED 21:34
DX: R50.82 Postprocedural fever (principal); I10 Essential (primary) hypertension; Z20.822 Contact with and (suspected) exposure to COVID-19
CPT/HCPCS: 36415; 74177; 80053; 81001; 83605; 83690; 85025; 87631; 96374; 99284; J1170; Q9967; 0202U; 81003; 87070; 87086; 87205

== ENCOUNTER 2021-04-29 09:50 | Outpatient (CLI) | payer MEDICARE, BC ==
[2021-04-29 15:27] LABS: BASOPHILS % (AUTO) 0.4 %; EOSINOPHILS # (AUTO) 0.1 10^3/uL (0.0-0.7); HCT - HEMATOCRIT 40.8 % (37.0-47.0); HGB - HEMOGLOBIN 13.9 g/dL (12.0-16.0); LYMPHOCYTES # (AUTO) 1.2 10^3/uL (1.5-3.5); LYMPHOCYTES % (AUTO) 17.2 %; MEAN CORPUSCULAR HEMOGLOBIN 31.3 pg (27.0-31.0); MEAN CORPUSCULAR HGB CONC 34.1 g/dL (32.0-36.0); MEAN CORPUSCULAR VOLUME 91.9 fL (81.0-99.0); MEAN PLATELET VOLUME 11.8 fL (7.9-10.8); MONOCYTES # (AUTO) 0.4 10^3/uL (0.0-1.0); MONOCYTES % (AUTO) 6.4 %; NEUTROPHILS % (AUTO) 74.3 %; PLT - PLATELET COUNT 219 10^3/uL (130-450); RED BLOOD COUNT 4.44 10^6/uL (4.20-5.40); RED CELL DISTRIBUTION WIDTH 12.8 % (12.0-15.0); WHITE BLOOD COUNT 6.7 x10^3/uL (4.8-10.8)
[2021-04-29 16:09] LABS: ALBUMIN 3.7 g/dL (3.2-5.5); BILIRUBIN,DIRECT 0.4 mg/dL (0.1-0.5); BILIRUBIN,TOTAL 0.9 mg/dL (0.2-1.0); CREATININE 0.5 mg/dL (0.4-1.0); POTASSIUM 3.5 mmol/L (3.5-5.0); TOTAL PROTEIN 7.4 g/dL (6.7-8.2)
== END 2021-04-29 09:51 | disposition home or self-care (01) ==
LOC: LAB.S 09:50
PROVIDERS: ATTEND Internal Medicine Gastroenterology
DX: K83.1 Obstruction of bile duct (principal)
CPT/HCPCS: 36415; 80053; 80076; 82248; 82378; 85025; 86301

== ENCOUNTER 2021-05-08 11:22 | Outpatient (CLI) | payer MEDICARE, BC ==
[2021-05-08 14:23] LABS: BASOPHILS % (AUTO) 0.4 %; EOSINOPHILS # (AUTO) 0.1 10^3/uL (0.0-0.7); EOSINOPHILS % (AUTO) 0.8 %; HGB - HEMOGLOBIN 13.7 g/dL (12.0-16.0); LYMPHOCYTES # (AUTO) 1.1 10^3/uL (1.5-3.5); LYMPHOCYTES % (AUTO) 15.1 %; MEAN CORPUSCULAR HEMOGLOBIN 30.5 pg (27.0-31.0); MEAN CORPUSCULAR HGB CONC 33.4 g/dL (32.0-36.0); MEAN CORPUSCULAR VOLUME 91.3 fL (81.0-99.0); MEAN PLATELET VOLUME 10.8 fL (7.9-10.8); MONOCYTES # (AUTO) 0.5 10^3/uL (0.0-1.0); NEUTROPHILS # (AUTO) 5.8 10^3/uL (1.5-6.6); NEUTROPHILS % (AUTO) 76.9 %; PLT - PLATELET COUNT 260 10^3/uL (130-450); RED BLOOD COUNT 4.49 10^6/uL (4.20-5.40); RED CELL DISTRIBUTION WIDTH 12.9 % (12.0-15.0); WHITE BLOOD COUNT 7.5 x10^3/uL (4.8-10.8)
[2021-05-08 15:06] LABS: ALBUMIN 3.7 g/dL (3.2-5.5); ALBUMIN/GLOBULIN RATIO 1.1 (1.0-2.2); CREATININE 0.5 mg/dL (0.4-1.0); POTASSIUM 3.5 mmol/L (3.5-5.0); TOTAL PROTEIN 7.2 g/dL (6.7-8.2)
[2021-05-08 15:10] LABS: ALBUMIN 3.7 g/dL (3.2-5.5); BILIRUBIN,DIRECT 0.3 mg/dL (0.1-0.5); BILIRUBIN,TOTAL 1.1 mg/dL (0.2-1.0); TOTAL PROTEIN 7.1 g/dL (6.7-8.2)
== END 2021-05-08 11:23 | disposition home or self-care (01) ==
LOC: LAB.S 11:22
PROVIDERS: ATTEND Internal Medicine Gastroenterology
DX: K83.1 Obstruction of bile duct (principal)
CPT/HCPCS: 36415; 80053; 80076; 82248; 82378; 85025; 86301

== ENCOUNTER 2021-06-18 09:41 | Outpatient (CLI) | payer MEDICARE, BC ==
[2021-06-18 14:46] LABS: BASOPHILS % (AUTO) 0.5 %; EOSINOPHILS # (AUTO) 0.1 10^3/uL (0.0-0.7); EOSINOPHILS % (AUTO) 1.2 %; HCT - HEMATOCRIT 40.4 % (37.0-47.0); LYMPHOCYTES # (AUTO) 0.6 10^3/uL (1.5-3.5); MEAN CORPUSCULAR HGB CONC 32.2 g/dL (32.0-36.0); MEAN CORPUSCULAR VOLUME 93.1 fL (81.0-99.0); MEAN PLATELET VOLUME 11.5 fL (7.9-10.8); MONOCYTES # (AUTO) 0.6 10^3/uL (0.0-1.0); MONOCYTES % (AUTO) 9.3 %; NEUTROPHILS # (AUTO) 5.2 10^3/uL (1.5-6.6); NEUTROPHILS % (AUTO) 79.7 %; PLT - PLATELET COUNT 190 10^3/uL (130-450); RED BLOOD COUNT 4.34 10^6/uL (4.20-5.40); RED CELL DISTRIBUTION WIDTH 14.8 % (12.0-15.0); WHITE BLOOD COUNT 6.5 x10^3/uL (4.8-10.8)
[2021-06-18 15:12] LABS: ALBUMIN 3.4 g/dL (3.2-5.5); ALBUMIN/GLOBULIN RATIO 1.1 (1.0-2.2); BILIRUBIN,TOTAL 2.3 mg/dL (0.2-1.0); CALCIUM 8.6 mg/dL (8.5-10.3); CREATININE 0.6 mg/dL (0.4-1.0); MAGNESIUM 2.1 mg/dL (1.7-2.8); POTASSIUM 3.4 mmol/L (3.5-5.0); TOTAL PROTEIN 6.6 g/dL (6.7-8.2)
[2021-06-19 15:11] LABS: HEPATITIS B SURFACE ANTIGEN NON-REACTIVE (NON-REACTIVE)
== END 2021-06-18 09:42 | disposition home or self-care (01) ==
LOC: LAB.S 09:41
PROVIDERS: ATTEND Internal Medicine
DX: C24.0 Malignant neoplasm of extrahepatic bile duct (principal)
CPT/HCPCS: 36415; 80053; 83735; 85025; 86704; 87340

== ENCOUNTER 2021-07-10 09:13 | Outpatient (CLI) | payer MEDICARE, BC ==
--- NOTE | 2021-07-11 11:18 | Ultrasound Report ---
PROCEDURE: Abdominal Paracentesis INDICATIONS: CHOLANGIOCARCINOMA TECHNIQUE: The indications, alternatives, benefits, risks, and complications of the procedure were explained to the patient. Written informed consent was obtained and placed in the chart. The abdomen and pelvis were examined sonographically, and an appropriate site was chosen for paracentesis. The skin was pre pared and draped in the usual sterile fashion, and 1% lidocaine was infiltrated from the skin down th rough the peritoneal surface. A 19-gauge catheter-covered needle was then introduced into the perito vianney space, the catheter was advanced and the needle was withdrawn, and thereafter peritoneal fluid w as withdrawn. The catheter was then removed and a dressing was applied. The fluid was discarded if the clinician did not order diagnostic testing of the fluid. COMPARISON: None. FINDINGS: Access site: Left lower quadrant Needle: One-Step centesis catheter with introducer needle. Fluid volume and description: 7.1 L of viscous, cloudy ascites Fluid sent for diagnostic testing: Not requested Medications: 1% lidocaine for local anaesthesia. Complications: None. IMPRESSION: Successful ultrasound-guided paracentesis. Reviewed by: Enoch Briseno MD on 07/11/2021 11:17 AM PDT Approved by: Enoch Briseno MD on 07/11/2021 11:17 AM PDT Station ID: [id number]
== END 2021-07-10 09:14 | disposition home or self-care (01) ==
LOC: DI 09:13
PROVIDERS: ATTEND Internal Medicine Hematology & Oncology
DX: C22.1 Intrahepatic bile duct carcinoma (principal)
CPT/HCPCS: 49083

== ENCOUNTER 2021-07-16 13:40 | Outpatient (CLI) | payer MEDICARE, BC ==
--- NOTE | 2021-07-16 15:10 | Ultrasound Report ---
PROCEDURE: Abdominal Paracentesis INDICATIONS: CHOLANGIOCARCINOMA TECHNIQUE: The indications, alternatives, benefits, risks, and complications of the procedure were explained to the patient. Written informed consent was obtained and placed in the chart. The abdomen and pelvis were examined sonographically, and an appropriate site was chosen for paracentesis. The skin was pre pared and draped in the usual sterile fashion, and 1% lidocaine was infiltrated from the skin down th rough the peritoneal surface. A 19-gauge catheter-covered needle was then introduced into the perito vianney space, the catheter was advanced and the needle was withdrawn, and thereafter peritoneal fluid w as withdrawn. The catheter was then removed and a dressing was applied. The fluid was discarded if the clinician did not order diagnostic testing of the fluid. COMPARISON: 07/10/2021 FINDINGS: Access site: Right lower quadrant Needle: One-Step centesis catheter with introducer needle. Fluid volume and description: Opaque milky serosanguineous fluid, 3 L. Fluid sent for diagnostic testing: Not requested Medications: 1% lidocaine for local anaesthesia. Complications: None. IMPRESSION: Technically successful ultrasound-guided paracentesis. Reviewed by: Vitaly Shukla MD on 07/16/2021 3:09 PM PDT Approved by: Vitaly Shukla MD on 07/16/2021 3:09 PM PDT Station ID: [id number]
== END 2021-07-16 13:41 | disposition home or self-care (01) ==
LOC: DI 13:40
PROVIDERS: ATTEND Internal Medicine
DX: C22.1 Intrahepatic bile duct carcinoma (principal)
CPT/HCPCS: 49083

== ENCOUNTER 2021-07-23 12:28 | Outpatient (CLI) | payer MEDICARE, BC ==
--- NOTE | 2021-07-23 15:50 | Ultrasound Report ---
PROCEDURE: Abdominal Paracentesis INDICATIONS: CHOLANGIOCARCINOMA TECHNIQUE: The indications, alternatives, benefits, risks, and complications of the procedure were explained to the patient. Written informed consent was obtained and placed in the chart. The abdomen and pelvis were examined sonographically, and an appropriate site was chosen for paracentesis. The skin was pre pared and draped in the usual sterile fashion, and 1% lidocaine was infiltrated from the skin down th rough the peritoneal surface. A 19-gauge catheter-covered needle was then introduced into the perito vianney space, the catheter was advanced and the needle was withdrawn, and thereafter peritoneal fluid w as withdrawn. The catheter was then removed and a dressing was applied. The fluid was discarded if the clinician did not order diagnostic testing of the fluid. COMPARISON: 07/16/2021 FINDINGS: Access site: Right lower quadrant Needle: One-Step centesis catheter with introducer needle. Fluid volume and description: 3 mm opaque chylous Fluid sent for diagnostic testing: Not requested Medications: 1% lidocaine for local anaesthesia. Complications: None. IMPRESSION: Technically successful ultrasound-guided paracentesis. Reviewed by: Vitaly Shukla MD on 07/23/2021 3:49 PM PDT Approved by: Vitaly Shukla MD on 07/23/2021 3:49 PM PDT Station ID: [id number]
== END 2021-07-23 12:29 | disposition home or self-care (01) ==
LOC: DI 12:28
PROVIDERS: ATTEND Internal Medicine
DX: C22.1 Intrahepatic bile duct carcinoma (principal)
CPT/HCPCS: 49083

== ENCOUNTER 2021-07-29 10:15 | Outpatient (CLI) | payer MEDICARE, BC ==
--- NOTE | 2021-07-29 15:20 | CONSULTATION NOTE ---
Palliative Care Consultation - Referral Referring Provider: Dr. Fito Gustafson Time of Visit: [id number] Referral setting: Home Referral Reason: Pain of neoplastic origin/Hiccups/Met cholangiocarcinoma - Information Sources Records reviewed: Previous records reviewed History/Review of Systems obtained from: Patient, Family (spouse Pennie joined for most of the visit) Exam limitations: Clinical condition (patient with worsening STM deficits) - History of Present Illness Brief History of Present Illness: This is a 71-year-old woman who presented on 04/12/2021 abdominal pain, and was found to have elevated liver enzymes, and was referred to gastroenterology as both ultrasound and CT scan showed dilatation of the common bile duct and intrahepatic ducts. She underwent an ERCP at [facility] 04/22 and stent was placed due to biliary stricture, she presented again on with chills and abdominal pain, and was dsicharged with antibiotics. She was seen at [facility], and diagnosed with hilar cholangiocarcinoma, after an MRI of the abdomen revealed a hilar mass measuring 2.5 and 3.5 cm causing marked narrowing of the portal vein and common bile duct. She unfortunately had 2 biopsies that were negative, though it remained very suspicious for cholangiosarcoma with liver lesions. Her CA 19-9 was 21,673 at the time and CEA 11.2. She at that time had mild to moderate ascites, with weight loss of 16 pounds in 1 month, and persistent severe fatigue. She did finally receive a CT- guided core got biopsy of the liver, and she was found to to have a moderately differentiated adenocarcinoma. She was started on cis-ewiiaapaayp and gemcitabine, has completed 2 cycles, and is due for restaging scan after 3 cycles. She is continued to have worsening ascites, currently is getting weekly paracentesis, with the agreement for only draining 3 L. This does appear to fill up pretty quickly. She does present with an abdomen which is quite distended. She had started on furosemide 20 mg every morning and spironolactone 50 mg, but has been having persistent dizziness, and today presents with orthost atic hypotension. She has had progressive abdominal pain and discomfort, this fluctuates some with ascites reaccumulation, currently is taking MS Contin 30 mg every 12 hours, with hydromorphone for breakthrough pain using about 1-2 times a day. She has had persistent nausea and mild confusion, this is worsened with timing of initiation of titration of the morphine. I suspect this is multifactorial, she has needed persistent antiemetics. .She has also developed persistent and "wrenching" hiccups, these are annoying at times, and cause severe pain at others. This is started mid last week, they had increased her use of prochlorperazine with some improvement, but again adding to her sedation. She does report it is worse at night, though can be triggered at any point with increased activity, though they were not persistent during visit. Her most distressing symptom today is her dizziness, her blood pressure sitting is 112/72 with a pulse of 100, and standing 82/64 with a pulse of 113. She has been taking fluids, she does have lower extremity edema though she reports this is improved somewhat. She reports she is voiding large amounts at night. Medical/Surgical History - Past Medical History Cardiovascular: reports: Hypertension, High cholesterol Respiratory: reports: None Endocrine/Autoimmune: reports: None GI: reports: GERD, Colon polyps, Hepatitis, Diverticulitis, Cholelithiasis : reports: None HEENT: reports: None Psych: reports: None Musculoskeletal: reports: Osteoarthritis, Fatigue Derm: reports: None MRSA Hx?: No - Past Surgical History General: reports: Cholecystectomy, Appendectomy, EGD, Other (portacath placement) Ortho: reports: Spine surgery HEENT: reports: Rhinoplasty, Tonsil/Adenoidectomy - Substance History Use: Uses substance without health or social issues: Tobacco (never), Alcohol (occasionally) Social History - Living Situation Living arrangement: At home Living Situation: With spouse/s.o. Support System: Patient is to Pennie, They have been together 12 years. They live in a serina home with 2 dogs. 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 They have been in the community for about 3 years, have a good support. Jolene does have a son who is a physician who has been quite supportive to them in helping navigate their current journey. Family History - Family History Family History: Mother: , Father: Family History Comment/Other: maternal aunts had multiple myeloma/pancreatic CA Medications/Allergies - Medications Home Medications: Ambulatory Orders Medication Instructions Recorded Confirmed Furosemide [Lasix] 20 tab PO DAILY MDD HOLD 07/2907/08/21 07/29/21 Ondansetron [Zuplenz] 8 mg PO PRN PRN 07/08/21 07/29/21 Prochlorperazine [Compazine] 10 mg PO Q6H PRN 07/08/21 07/29/21 Spironolactone [Aldactone] 50 tab PO DAILY MDD HOLD 07/2907/08/21 07/29/21 Baclofen 5 mg PO TID PRN MDD 30 mg 07/29/21 07/29/21 Calcium Carbonate [Tums (Calcium 1,000 mg PO BID 07/29/21 07/29/21 Carbonate 500mg)] HYDROmorphone [Dilaudid] 2 - 4 tab PO Q6H PRN 07/29/21 07/29/21 Magnesium Oxide [Magnesium] 400 mg PO DAILY 07/29/21 07/29/21 Morphine Sulfate [Ms Contin] 30 tab PO BID MDD switching to 07/29/21 07/29/21 fentanyl Naloxone HCl [Narcan] 1 spray JOSE DE JESUS PRN PRN 07/29/21 07/29/21 Omeprazole Magnesium 20 mg PO DAILY 07/29/21 07/29/21 Senna [Senokot] 8.6 mg PO DAILY MDD 2 tabs tid 07/29/21 07/29/21 dexAMETHasone [Decadron] 4 mg PO DAILY MDD 5 days 07/29/21 07/29/21 fentaNYL [Fentanyl 25mcg patch] 25 mcg TOP .Q72 HOURS MDD when 07/29/21 07/29/21 available polyethylene glycoL 3350 [Miralax] 17 gm PO DAILY MDD bid 07/29/21 07/29/21 - Allergies Allergies/Adverse Reactions: Allergies Allergy/AdvReac Type Severity Reaction Status Date / Time codeine Allergy Nausea Verified 04/24/21 21:50 shellfish derived AdvReac Emesis Verified 04/24/21 21:50 Review of Systems - Constitutional Constitutional: reports: Fatigue (persistent and worsening), Weakness, Weight loss (180) - Eyes Eyes: reports: Blurred vision, Vision loss - Ears, Nose & Throat Ears, Nose & Throat: reports: Hearing loss, Hearing aids, Dry mouth. denies: Mouth lesions - Cardiovascular Cardiovascular: reports: Edema, Lightheadedness, Exertional dyspnea, Decr. exercise tolerance - Respiratory Respiratory: reports: SOB at rest (improved), SOB with exertion - Gastrointestinal Gastrointestinal: reports: Abdominal distention, Constipation (intermittent), Nausea (improved but severe previous end of week), Vomiting (undigested food;), Reflux/heartburn, Bloating, Poor appetite, Early satiety - Genitourinary Genitourinary: reports: Frequency, Nocturia - Musculoskeletal Musculoskeletal: reports: Muscle aches, Stiffness, Limited range of motion, Muscle weakness, Assistive devices (enc t use walker with dizzyness) - Integumentary Integumentary: reports: Pruritis, Dryness - Neurological Neurological: reports: General weakness, Headache (occasional), Dizziness, Memory problems (worsening) - Psychiatric Psychiatric: reports: Anxiety - Hematologic/Lymphatic Hematologic/Lymph: reports: Anemia (11.2) - All Other Systems All Other Systems: reports: Reviewed and negative Physical Exam - Vital Signs Temperature: 97.0 C Pulse Rate: 100 (standing 113) Respiratory Rate: 18 O2 Saturation: 98 (90 with ambulation) Blood Pressure: 112/72 (sitting; standing 82/64) - Physical Exam General Appearance: positive: Alert, Mild distress Eyes Bilateral: positive: Normal inspection, No scleral icterus Neck: positive: Trachea midline Cardiovascular: positive: Tachycardia Respiratory: positive: Other (decreased 1/3 on left; 1/4 right;). negative: No respiratory distress (with effort RR increase), Wheezes Abdomen: positive: Tenderness, Distended, Taut Skin: positive: Mottled (across abd.), Dryness Extremities: positive: Pedal edema (up to mid thigh; sacral edema) Neurologic/Psychiatric: positive: Mood/affect nml, Disoriented to time Palliative Care - POLST Patient has POLST: Yes POLST Status: DNR, Selective Treatment (completed at visit) Pain: Pain worsening, Location (upper abdominal area/), Severity (mod/severe; fluctuates), Comment (titrated MS 30 mg BID; more confusion/nausea; concern for absorption and pill burden) Tiredness/Fatigue: Severe (7-10) Drowsiness/Sedation: Moderate (4-6) Nausea: Moderate (4-6) (improved today), With vomiting Anorexia: Severe (7-10) Dyspnea: Moderate (4-6) Depression: Mild (1-3) Anxiety: Moderate (4-6) Feelings of wellbeing/Perceived Quality of Life: Poor, Worsening Sleep: Variable sleep pattern Constipation: Yes, Opoid induced, Unmanaged, Intermittent constipation Performance Status: Patient with functional decline, this is been exacerbated over the weekend with worsening symptom burden. She does present with orthostatic hypotension. She has been instructed to use a walker. They do have a shower in the bathroom. Concerned about leaving her alone, instructed not to given patient's high fall risk. Provided information on lift assist. - Palliative Care Discussion: Patient does understand she has stage IV cancer of the gallbladder, with liver mets. She does understand that this is not curable, and treatment is to prolong life, she reports she is "going to fight this". She does have somewhat of a practical side, we did complete a POLST with DN AR/DNI and selective treatments. She would choose to treat reversible conditions at this point in time, but if she were to transition she would like to have her end-of-life event at home, both she and her have had experience with hospice and family members. Counseling provided regarding the role of palliative care, focus on quality of life issues, as well as supporting her through treatment. Both patient and expressing appropriate concerns, this has been fairly overwhelming in the context of the seriousness of her illness, and high symptom burden. 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 She has completed 2 treatments of cis-ewiiaapaayp/gemcitabine, does have ongoing persistent ascites, receiving weekly paracentesis with 3 L draining. She currently today presents with poorly controlled pain, orthostatic hypotension most likely exacerbated by diuretic use, functional decline, is feeling overwhelmed by both high symptom burden and pill burden. Palliative care providing support for pain and symptom management, anticipatory guidance, and coordination of care. Recommendations/Counseling Done: 1. Pain of neoplastic origin. Patient complaining of increasing pain, and spasms in her upper epigastric area, difficulty with swallowing and pill burden. Review of initiation of morphine, and worsening nausea and vomiting, most likely multifactorial, but will transition from morphine to fentanyl patch 25 mcg for equal analgesic dosing. She does have the hydromorphone for breakthrough dosing, encouraged to use 2 mg and repeat in 1 hour if not effective. Patient's goal is to have decrease sedation and more clarity. 2. Hiccups. Patient has wide range of response from intermittent annoying to persistent and quite painful. Had improved some with regular prochlorperazine, but given patient's sedation, will initiate baclofen 5 mg 3 times daily as needed for persistent and concern continuous hiccups. Again trying to decrease pill burden and sedation. 3. Constipation. Patient is using MiraLAX 17 g daily, dislikes that's "slime". Instructed to take it in 4 ounces of juice. Patient continue senna 1 tab, counseling provided regarding titration of MiraLAX and senna for motion and push. 4. Anorexia. Patient with worsening anorexia, does appear her nausea and vomiting are somewhat improved. We will go ahead and initiate dexamethasone 4 mg daily for 5 days to see if patient can get some relief of both nausea and use for appetite stimulant. Counseling provided regarding small frequent feedings, use of supplements, will initiate referral to dietitian. 5. Orthostatic hypotension. Patient does report is taking fluids, given patient's current condition. Will have patient hold both spironolactone and furosemide. Patient instructed to use compression stockings for lower extremity edema. Continue to push fluids, is due for paracentesis tomorrow. Instructed on daily weights to be able to monitor. Patient has had concerning counts, will go ahead and order labs CMP, magnesium, and CBC tomorrow. Call and spoke with patient's oncologist Dr. Gustafson to coordinate labs and care. 6. Advanced care planning. Jolene asking appropriate questions about resources, reviewed Medicare does not provide any fpc care support. Did provide home care providers, encouraged to ask around for private caregivers that have been used previously by people that they know. We reviewed the pandemic does decrease availability. Patient does have advanced care documents, but needs POLST. POLST was completed today with DN AR/DNI and selective treatments, with goals to focus on quality of life, spending time with friends and family, treating reversible conditions, and end-of-life a comfortable respectful at home. Patient is quite interested in focusing on extending both quantity and quality of life as goals. Counseling provided regarding the role of palliative care for support particular around pain and symptom management and anticipatory guidance. 90 minutes with greater than 50% of this done in counseling regarding pain and symptom management, management of hiccups nausea and vomiting, anticipatory guidance, role of palliative care. Coordination of care regarding orthostatic hypotension, labs, with oncology. And will follow up depending on results tomorrow. We will plan for weekly visits until patient plateaued and stable.
== END 2021-07-29 10:16 | disposition home or self-care (01) ==
LOC: PC 10:15
PROVIDERS: ATTEND Nurse Practitioner Adult Health
DX: Z51.5 Encounter for palliative care (principal); C24.0 Malignant neoplasm of extrahepatic bile duct; G89.3 Neoplasm related pain (acute) (chronic); C78.7 Secondary malignant neoplasm of liver and intrahepatic bile duct; I95.1 Orthostatic hypotension; R06.6 Hiccough; R53.83 Other fatigue; R63.0 Anorexia; R11.0 Nausea; R18.8 Other ascites; R41.0 Disorientation, unspecified; H53.8 Other visual disturbances; H91.90 Unspecified hearing loss, unspecified ear; R06.02 Shortness of breath; R35.0 Frequency of micturition; R35.1 Nocturia; Z66 Do not resuscitate; Z90.49 Acquired absence of other specified parts of digestive tract; Z79.891 Long term (current) use of opiate analgesic; Z79.51 Long term (current) use of inhaled steroids; Z79.899 Other long term (current) drug therapy
CPT/HCPCS: 99350

== ENCOUNTER 2021-07-30 09:24 | Outpatient (CLI) | payer MEDICARE, BC ==
--- NOTE | 2021-07-30 12:27 | Ultrasound Report ---
PROCEDURE: Abdominal Paracentesis INDICATIONS: CHOLANGIOCARCINOMA TECHNIQUE: The indications, alternatives, benefits, risks, and complications of the procedure were explained to the patient. Written informed consent was obtained and placed in the chart. The abdomen and pelvis were examined sonographically, and an appropriate site was chosen for paracentesis. The skin was pre pared and draped in the usual sterile fashion, and 1% lidocaine was infiltrated from the skin down th rough the peritoneal surface. A 19-gauge catheter-covered needle was then introduced into the perito vianney space, the catheter was advanced and the needle was withdrawn, and thereafter peritoneal fluid w as withdrawn. The catheter was then removed and a dressing was applied. The fluid was discarded if the clinician did not order diagnostic testing of the fluid. COMPARISON: 07/23/2021 FINDINGS: Access site: Right lower quadrant Needle: One-Step centesis catheter with introducer needle. 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 Medications: 1% lidocaine for local anaesthesia. Complications: None. IMPRESSION: Technically successful ultrasound-guided paracentesis. Reviewed by: Marcio Bazan MD on 07/30/2021 12:26 PM PDT Approved by: Marcio Bazan MD on 07/30/2021 12:26 PM PDT Station ID: [id number]
== END 2021-07-30 09:25 | disposition home or self-care (01) ==
LOC: DI 09:24
PROVIDERS: ATTEND Internal Medicine
DX: C22.1 Intrahepatic bile duct carcinoma (principal)
CPT/HCPCS: 49083

== ENCOUNTER 2021-07-30 12:30 | Outpatient (CLI) | payer MEDICARE, BC ==
--- NOTE | 2021-07-30 15:13 | CONSULTATION NOTE ---
Palliative Care Follow Up - Referral Referring Provider: Dr. Fito Gustafson Time of Visit: 1230 45 minutes [place] [facility] [place] Reason: FTT/CKD III/Cholangiocarcinoma/Pal Care - Information Sources Records reviewed: RN notes reviewed, Previous records reviewed History/Review of Systems obtained from: Patient Exam limitations: Clinical condition (patient feeling poorly) - History of Present Illness Update Brief HPI Update: Please see visit 07/29 for HPI. 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 She is been started on cis-minto and gemcitabine, and has completed 2 cycles, she is doing very poorly, and had made arrangements for labs today. She also receiving weekly paracentesis, and is completed 1 with 3 L off. She was having severe dizziness yesterday and orthostatic hypotension, we discontinued her diuretics. Patient's labs show worsening kidney function, sodium was 126, potassium 3.3, BUN went from 32-53, and 1.2-1.5, with a GFR of 34. Her calcium remains quite low at 7.8, though her total protein is 5.2 and albumin 2.5. Her AST and alk phos continue to increase with 63 and 61 respectively, she also has decreased platelets to 34,000. She does have a bleed in her right eye, she reports this occurred spontaneously when she woke up this morning, though she did have 2 episodes of fairly significant vomiting yesterday. She continues with poor appetite, continues to feel poorly, has not been able to transition over to fentanyl yet as we are waiting on insurance approval. She ports the hiccups are tolerable at this point in time is not needed further medication. She still come to the appointment with orthostatic hypotension, with blood pressure 136/79 pulse of 109 sitting and 111/75 and pulse of 113 standing. She continues feeling somewhat 50, dizzy, and with mild intermittent confusion most likely attributed to her sodium levels. Unfortunately her cannot join us because of COVID-19 restrictions, and meeting with patient and on phone to follow-up on lab results and identify concerns. Social History - Living Situation Living arrangement: At home Living Situation: With spouse/s.o. Support System: Patient is supported by her Pennie, they have been over 12 years. This is been very difficult for both of them. Medications/Allergies - Medications Home Medications: Ambulatory Orders Medication Instructions Recorded Confirmed Furosemide [Lasix] 20 tab PO DAILY MDD HOLD 07/2907/08/21 07/29/21 Ondansetron [Zuplenz] 8 mg PO PRN PRN 07/08/21 07/29/21 Prochlorperazine [Compazine] 10 mg PO Q6H PRN 07/08/21 07/29/21 Spironolactone [Aldactone] 50 tab PO DAILY MDD HOLD 07/2907/08/21 07/29/21 Baclofen 5 mg PO TID PRN MDD 30 mg 07/29/21 07/29/21 Calcium Carbonate [Tums (Calcium 1,000 mg PO BID 07/29/21 07/29/21 Carbonate 500mg)] HYDROmorphone [Dilaudid] 2 - 4 tab PO Q6H PRN 07/29/21 07/29/21 Magnesium Oxide [Magnesium] 400 mg PO DAILY 07/29/21 07/29/21 Morphine Sulfate [Ms Contin] 30 tab PO BID MDD switching to 07/29/21 07/29/21 fentanyl Naloxone HCl [Narcan] 1 spray JOSE DE JESUS PRN PRN 07/29/21 07/29/21 Omeprazole Magnesium 20 mg PO DAILY 07/29/21 07/29/21 Senna [Senokot] 8.6 mg PO DAILY MDD 2 tabs tid 07/29/21 07/29/21 dexAMETHasone [Decadron] 4 mg PO DAILY MDD 5 days 07/29/21 07/29/21 fentaNYL [Fentanyl 25mcg patch] 25 mcg TOP .Q72 HOURS MDD when 07/29/21 07/29/21 available polyethylene glycoL 3350 [Miralax] 17 gm PO DAILY MDD bid 07/29/21 07/29/21 - Allergies Allergies/Adverse Reactions: Allergies Allergy/AdvReac Type Severity Reaction Status Date / Time codeine Allergy Nausea Verified 04/24/21 21:50 shellfish derived AdvReac Emesis Verified 04/24/21 21:50 Review of Systems - Constitutional Constitutional: reports: Fatigue (persistent and worsening), Weakness, Weight loss (180) - Eyes Eyes: reports: Blurred vision, Vision loss - Ears, Nose & Throat Ears, Nose & Throat: reports: Hearing loss, Hearing aids, Dry mouth. denies: Mouth lesions - Cardiovascular Cardiovascular: reports: Edema, Lightheadedness, Exertional dyspnea, Decr. exercise tolerance - Respiratory Respiratory: reports: SOB at rest (improved), SOB with exertion - Gastrointestinal Gastrointestinal: reports: Abdominal distention, Constipation (intermittent), Nausea (improved but severe previous end of week), Vomiting (vomited twice last night;), Reflux/heartburn, Bloating, Poor appetite, Early satiety - Genitourinary Genitourinary: reports: Frequency, Nocturia - Musculoskeletal Musculoskeletal: reports: Muscle aches, Stiffness, Limited range of motion, Muscle weakness, Assistive devices (enc t use walker with dizzyness) - Integumentary Integumentary: reports: Pruritis, Dryness - Neurological Neurological: reports: General weakness, Headache (occasional), Dizziness (remains persistent), Memory problems (worsening) - Psychiatric Psychiatric: reports: Anxiety - Hematologic/Lymphatic Hematologic/Lymph: reports: Anemia (9.8) - All Other Systems All Other Systems: reports: Reviewed and negative Physical Exam - Vital Signs Pulse Rate: 101 (sitting 113 standing) Respiratory Rate: 18 Blood Pressure: 136/79 (sitting; 111/75 standing) - Physical Exam General Appearance: positive: Alert, Mild distress, Lethargic, Cachetic Eyes Bilateral: positive: Normal inspection, No scleral icterus Neck: positive: Trachea midline Cardiovascular: positive: Tachycardia Respiratory: positive: No respiratory distress (with effort RR increase). negative: Wheezes Abdomen: positive: Tenderness, Distended, Taut Skin: positive: Mottled (across abd.), Dryness Extremities: positive: Pedal edema (up to mid thigh; sacral edema) Neurologic/Psychiatric: positive: Oriented x3, Mood/affect nml, Flat affect Palliative Care - POLST Patient has POLST: Yes POLST Status: DNR, Selective Treatment Pain: Pain worsening, Location (upper gastric area; not much relief with paracentesis) Tiredness/Fatigue: Severe (7-10) Drowsiness/Sedation: Moderate (4-6) Nausea: Moderate (4-6), With vomiting Anorexia: Severe (7-10) Dyspnea: Moderate (4-6) Depression: Moderate (4-6) Anxiety: Severe (7-10) Feelings of wellbeing/Perceived Quality of Life: Poor, Worsening Sleep: Sleeps poorly, Variable sleep pattern - Palliative Care Discussion: Patient and appropriately distressed, with patient's ongoing and worsening status. Reviewed findings and concerns, patient hopeful will continue to improve. Results - Lab Results Lab results reviewed: Yes Impression and Recommendations - Palliative Care Impression: This is a serina 71-year-old woman with metastatic cholangiocarcinoma from the proximal duct with liver mets and severe ascites, diagnosed in 05/2021. 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 [place] [facility] [place] labs, palliative care in consult with oncology reviewing labs and instructions. Palliative care providing support for pain and symptom management, anticipatory guidance and coordination of care Recommendations/Counseling Done: 1.Pain of neoplastic origin. Trying to transition from morphine to fentanyl, awaiting for RX at pharmacy. Suspect with worsening kidney function, is having more side effects from the morphine. Hoping this will happen in a more expedited fashion. 2. Hiccups. Patient reports they are less persistent today, does have new prescription of baclofen if needed for persistent and worsening hiccups, again trying to decrease pill burden and sedation. 3. Orthostatic hypotension. Reviewed labs, patient with persistent hypotension, reviewed with Dr. Alvarez. At this point in time adding fluids will just third space back into her ascites, she does have 3 L removed. Patient has been instructed related to her hyponatremia of 126 to decrease free water, continue to take fluids but find alternatives. Arrangements made for labs on . 4. CKD stage IIIb. Patient presenting with worsening kidney function, hopefully related to diuretics, have discontinued as of this morning. We will continue to monitor. 5. Anorexia. Patient with worsening anorexia, has continued intermittent nausea and vomiting. She has initiated dexamethasone 4 mg for 5 days to see if he gets relief of both nausea and use for appetite stimulant. She did meet with the dietitian today, mildly able to join with phone. 6. Hypokalemia. We will go ahead and order potassium 10 mEq, and titrate accordingly. We did review given medication not available to go ahead and drink orange juice and bananas to supplement at this point in time. 7. Anxiety. Patient appropriately anxious with worsening condition, as well as partner. We will continue to closely monitor. Reviewed labs with patient, barley, and oncologist. Coordination of care provided and labs ordered for . 45 minutes Review of labs, coordination of care with oncology team, [id number] with patient, counseling to patient and family.
== END 2021-07-30 12:31 | disposition home or self-care (01) ==
LOC: PC 12:30
PROVIDERS: ATTEND Nurse Practitioner Adult Health
DX: Z51.5 Encounter for palliative care (principal); Z66 Do not resuscitate; G89.3 Neoplasm related pain (acute) (chronic); C24.0 Malignant neoplasm of extrahepatic bile duct; C78.7 Secondary malignant neoplasm of liver and intrahepatic bile duct; R06.6 Hiccough; I95.1 Orthostatic hypotension; N18.32 Chronic kidney disease, stage 3b; R63.0 Anorexia; R11.2 Nausea with vomiting, unspecified; E87.6 Hypokalemia; F41.9 Anxiety disorder, unspecified
CPT/HCPCS: 99215

== ENCOUNTER 2021-08-08 15:15 | Outpatient (CLI) | payer MEDICARE, BC ==
--- NOTE | 2021-08-08 17:47 | CONSULTATION NOTE ---
Palliative Care Follow Up - Referral Referring Provider: Dr. Fito Gustafson Time of Visit: 2511-6998 Referral setting: Home Referral Reason: Pain of neoplastic origin/Constipation/Met Cholangiocarcinoma - Information Sources Records reviewed: Previous records reviewed History/Review of Systems obtained from: Patient, Family ( Pennie present) Exam limitations: No limitations - History of Present Illness Update Brief HPI Update: This is a 71-year-old woman who presented in April with abdominal pain, was found to have elevated liver enzymes, and with work-up was diagnosed with cholangiocarcinoma. She does have a metal stent placement, has had recurrent ascites, weight loss, and persistent severe pain. She has started cycle 3 of her chemotherapy, unfortunately did poorly with renal function, and had to change from cis-karuk to carboplatinum. She will be receiving gemcitabine along with this. She is expected to have restaging CT scans after this next cycle. Her renal function continues to be significantly impacted, with electrolyte abnormalities and hypoalbuminemia. She does have moderate to taut abdominal ascites today, though is softer than in past exam. She is also having a lot of gas. We have been working on her pain. With her renal function concerned about metabolites from morphine and worsening nausea and vomiting, did transition over to fentanyl. She did need a increase in her fentanyl, she is currently at 50 mcg every 3 days, but has improved pain management, though revisiting expectations today. She is using hydromorphone 4 mg for breakthrough pain, but is sleeping through the night. She is only needed to use 3 or 4 doses in 24 hours over the last several days. She does have intermittent hiccups but these are brief in nature. Her dizziness has improved off of her diuretics. Her biggest problem has been uncontrolled constipation, patient dislikes MiraLAX and has not been taking adequate amounts of laxatives. Past Medical History: Hypertension, high cholesterol, GERD, colon polyps, hepatitis, diverticulitis, cholelithiasis, osteoarthritis, fatigue Social History - Living Situation Living arrangement: At home Living Situation: With spouse/s.o. Support System: Patient is to Jolene, they have been together 12 years. They live in a serina home with 2 dogs. Mahnaz is a retired school bus inspector. They have been in the community for about 3 years and have good support. Tony does have a son who is a physician who has been quite supportive in helping him navigate their current journey. They are expecting some friends to come give some respite time and support in the next few weeks. Medications/Allergies - Medications Home Medications: Ambulatory Orders Medication Instructions Recorded Confirmed Ondansetron [Zuplenz] 8 mg PO PRN PRN 07/08/21 08/08/21 Prochlorperazine [Compazine] 10 mg PO Q6H PRN 07/08/21 08/08/21 Baclofen 5 mg PO TID PRN MDD 30 mg 07/29/21 08/08/21 Calcium Carbonate [Tums (Calcium 1,000 mg PO BID 07/29/21 08/08/21 Carbonate 500mg)] HYDROmorphone [Dilaudid] 4 mg PO Q3HR PRN 07/29/21 08/08/21 Naloxone HCl [Narcan] 1 spray JOSE DE JESUS PRN PRN 07/29/21 08/08/21 Omeprazole Magnesium 20 mg PO DAILY 07/29/21 08/08/21 Senna [Senokot] 8.6 mg PO TID MDD 2 tabs tid 07/29/21 08/08/21 fentaNYL [Fentanyl 25mcg patch] 50 mcg TOP .Q72 HOURS 07/29/21 08/08/21 - Allergies Allergies/Adverse Reactions: Allergies Allergy/AdvReac Type Severity Reaction Status Date / Time codeine Allergy Nausea Verified 04/24/21 21:50 shellfish derived AdvReac Emesis Verified 04/24/21 21:50 Review of Systems - Constitutional Constitutional: reports: Fatigue (persistent; some improvement), Weakness, Weight loss (180) - Eyes Eyes: reports: Blurred vision, Vision loss - Ears, Nose & Throat Ears, Nose & Throat: reports: Hearing loss, Hearing aids, Dry mouth. denies: Mouth lesions - Cardiovascular Cardiovascular: reports: Edema, Lightheadedness, Exertional dyspnea, Decr. exercise tolerance - Respiratory Respiratory: reports: SOB at rest (improved), SOB with exertion - Gastrointestinal Gastrointestinal: reports: Abdominal distention, Constipation (severe earlier this week), Reflux/heartburn, Bloating, Poor appetite, Early satiety, Other (large amount of gas). denies: Nausea, Vomiting - Genitourinary Genitourinary: reports: Frequency, Nocturia - Musculoskeletal Musculoskeletal: reports: Muscle aches, Stiffness, Limited range of motion, Muscle weakness - Integumentary Integumentary: reports: Pruritis, Dryness - Neurological Neurological: reports: General weakness, Memory problems (improved) - Hematologic/Lymphatic Hematologic/Lymph: reports: Anemia (9.3) - All Other Systems All Other Systems: reports: Reviewed and negative Physical Exam - Vital Signs Temperature: 97.2 C Pulse Rate: 108 Respiratory Rate: 18 O2 Saturation: 98 Blood Pressure: 112/72 - Physical Exam General Appearance: positive: Alert, Cachetic Eyes Bilateral: positive: Normal inspection, No scleral icterus ENT: negative: Oral lesions Neck: positive: Trachea midline Cardiovascular: positive: Tachycardia Respiratory: positive: No respiratory distress (with effort RR increase), Diminished in bases. negative: Wheezes Abdomen: positive: Tenderness, Distended, Taut Skin: positive: Mottled (across abd.), Dryness Extremities: positive: Pedal edema (up to mid thigh; sacral edema) Neurologic/Psychiatric: positive: Oriented x3, Mood/affect nml, Weakness, Flat affect Palliative Care - POLST Patient has POLST: Yes POLST Status: DNR, Selective Treatment Pain: Pain improved, Location (abdominal), Comment (fentanyl 50 mcg 08/05; using 4 mg hydromorphone BTP 3-4 doses/24 hours) Feelings of wellbeing/Perceived Quality of Life: Fair, Worsening Sleep: Sleep improved Constipation: Yes, Opoid induced, Unmanaged Performance Status: Patient is ambulatory in house, for short distances. She is using a walking stick does not need the walker at this time for dizziness. She is able to manage her ADLs with minor assistance. - Palliative Care Discussion: Discussion centered on pain management and expectations, follow-up on schedule for chemo, and continued focus on weighing benefits and burdens in the context of her renal function, clinical response and symptom management. Discussed patient's hope for both quality and quantity of life, reviewed clinical response would be improved pain management, decreasing ascites, improving functional status. Patient reports she is "a real list" and understands the seriousness of her illness, but feels like she is given a chance to treated and needs to move forward. It has been a gosia ride all the way along, but she does present much more coherent and engaged today. Continues to try and understand the nuances of both the cancer journey and managing her symptoms. Jolene her , has been a fabulous advocate and helps to navigate as patient does get easily overwhelmed. Results - Lab Results Lab results reviewed: Yes Impression and Recommendations - Palliative Care Impression: This is a 71-year-old woman with metastatic cholangiocarcinoma from the proximal duct with liver mets and ascites, diagnosed 05/2021. She is and cycle 3, though had to transition from cisplatin to carboplatinum secondary to renal function. She continues with persistent ascites though this appears somewhat improved today, she has not had a paracentesis last week and is tolerating this. Her pain is improved, dizziness improved, continues to struggle with constipation and pill burden. Palliative care providing support for pain and symptom management, anticipatory guidance, and coordination of care. Recommendations/Counseling Done: 1. Pain of neoplastic origin. Patient currently on fentanyl 50 mcg patch, is using 2-25's currently, new prescriptions to be available on Thursday. She does have hydromorphone 4 mg for breakthrough pain, counseling provided regarding expectations regarding long acting pain medication and fluctuating pain with as needed breakthrough pain medicating goals. Would expect at least 3 possibly 4 doses of breakthrough pain medication needed given her multiple pain generators. Counseling provided regarding transition from morphine to fentanyl given her poor renal function, acute nausea and vomiting most likely related not only to her chemo but to morphine metabolites. Patient's biggest complaint with the pain meds is a constipation, reviewed again need for aggressive bowel program. 2. Hiccups. Currently hiccups are intermittent and brief, patient does have significant mount of gas. Encouraged to walk around to expel. Has not had any good response from [facility]. Does have baclofen available if needed for persistent hiccups. 3. Constipation. Patient still unable to tolerate MiraLAX, unfortunately has not been taking it, nor enough senna with severe constipation on Thursday requiring a fleets. She reports she is still having firm frequent stooling, but is softer. Recommended getting senna S with the softener, to decrease pill burden. Reviewed needs at least for up to 6 senna depending on how many breakthrough pain medication she is taking. Goal is for daily BM. She has been instructed to call if needs further direction to the office. 4. Anorexia. Patient without nausea and vomiting today, just with poor taste and early satiety. Patient has been put on limited free water, counseling provided regarding brainstorming fluids patient may tolerate, approaches for small frequent feedings, and need to increase caloric intake to be able to tolerate long-term treatment. They have had counseling with dietitian, will need continued support regarding this. May consider adding mirtazapine if continues to be persistent. 5. Metastatic cholangiocarcinoma. Counseling provided and follow-up with [facility] regarding chemo appointments, reviewed schedules and expectations. Will be meeting with Jesica on Thursday, at that point time they will order scans and next round of chemo. They have found [facility] staff to be very supportive, though it is quite confusing navigating with multiple recalibrations for her given her poor renal function. Recommended to continue hold off on paracentesis if possible, does have pending appointments will cancel as needed. 60 minutes with greater than 50% of this done in counseling regarding pain and symptom management, cancer treatment, anticipatory guidance, and coordination of care. Plan is to see her for follow-up on pain management on Thursday or Thursday with injection.
== END 2021-08-08 15:16 | disposition home or self-care (01) ==
LOC: PC 15:15
PROVIDERS: ATTEND Nurse Practitioner Adult Health
DX: Z51.5 Encounter for palliative care (principal); C24.0 Malignant neoplasm of extrahepatic bile duct; C78.7 Secondary malignant neoplasm of liver and intrahepatic bile duct; R18.0 Malignant ascites; G89.3 Neoplasm related pain (acute) (chronic); R14.3 Flatulence; K59.03 Drug induced constipation; T40.2X5A Adverse effect of other opioids, initial encounter; R63.0 Anorexia; Z79.891 Long term (current) use of opiate analgesic; Z79.899 Other long term (current) drug therapy; Z66 Do not resuscitate
CPT/HCPCS: 99350

== ENCOUNTER 2021-08-13 13:58 | Outpatient (CLI) | payer MEDICARE, BC ==
--- NOTE | 2021-08-13 14:51 | CONSULTATION NOTE ---
Palliative Care Follow Up - Referral Referring Provider: Jesica Morton PA-C Time of Visit: 1300 45 minutes Referral setting: [facility] Referral Reason: Pain of neoplastic origin/Cholangiocarcinoma/Anorexia - Information Sources Records reviewed: RN notes reviewed, Previous records reviewed History/Review of Systems obtained from: Patient Exam limitations: No limitations - History of Present Illness Update Brief HPI Update: This is a 71-year-old woman who has cholangiocarcinoma with liver mets, does have a metal stent, has recurrent ascites, and persistent pain. She has completed her third cycle of chemotherapy as of yesterday, continues with poor renal function, is currently on carboplatin and gemcitabine. She is due for restaging scans next week. Palliative care has been working on her pain and symptom management, her pain is much better at 3-4 over 10. Most persistent in the upper epigastric area, she thinks it is actually at the stent location. She is eating better, she is premedicating with hydromorphone with better response. She continues with low sodium at 126, but is alert and no confusion noted. She still has a taut abdomen perhaps a smidge bit larger than last week, but still tolerable for patient. She has been using compression stockings for her lower extremity edema, this remains unchanged or improved. She does feel like she is doing better overall. She continues with some dizziness and lightheadedness, this mostly comes with position change. Past Medical History: Hypertension, high cholesterol GERD, colon polyps hepatitis, diverticulitis, cholelithiasis, osteoarthritis, fatigue Social History - Living Situation Living arrangement: At home Living Situation: With spouse/s.o. Support System: Patient is to Jolene, they have been together 12 years. They have 2 dogs. 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 They are expecting some visitors, with hope for some respite. Jolene also has a son who is a physician, who is helping him navigate their current journey. She does feel like she has appropriate support at this time. Medications/Allergies - Medications Home Medications: Ambulatory Orders Medication Instructions Recorded Confirmed Ondansetron [Zuplenz] 8 mg PO PRN PRN 07/08/21 08/12/21 Prochlorperazine [Compazine] 10 mg PO Q6H PRN 07/08/21 08/12/21 Baclofen 5 mg PO TID PRN MDD 30 mg 07/29/21 08/12/21 HYDROmorphone [Dilaudid] 4 mg PO Q3HR PRN 07/29/21 08/12/21 Naloxone HCl [Narcan] 1 spray JOSE DE JESUS PRN PRN 07/29/21 08/12/21 Omeprazole Magnesium 20 mg PO DAILY 07/29/21 08/12/21 Senna [Senokot] 8.6 mg PO TID MDD 2 tabs tid 07/29/21 08/12/21 fentaNYL [Fentanyl 25mcg patch] 50 mcg TOP .Q72 HOURS 07/29/21 08/12/21 - Allergies Allergies/Adverse Reactions: Allergies Allergy/AdvReac Type Severity Reaction Status Date / Time codeine Allergy Nausea Verified 04/24/21 21:50 shellfish derived AdvReac Emesis Verified 04/24/21 21:50 Review of Systems - Constitutional Constitutional: reports: Fatigue (persistent; some improvement), Weakness - Eyes Eyes: reports: Blurred vision, Vision loss - Ears, Nose & Throat Ears, Nose & Throat: reports: Hearing loss, Hearing aids, Dry mouth. denies: Mouth lesions - Cardiovascular Cardiovascular: reports: Edema (using compression stockings with some relief;), Lightheadedness (mostly with position changes), Exertional dyspnea, Decr. exercise tolerance - Respiratory Respiratory: reports: SOB at rest (more notable; anemic 8.4), SOB with exertion - Gastrointestinal Gastrointestinal: reports: Abdominal distention, Constipation (improved with use of 2 senna BID; not gone yet today), Reflux/heartburn, Bloating, Early satiety, Other (large amount of gas; taste changes). denies: Nausea, Vomiting - Genitourinary Genitourinary: reports: Frequency, Nocturia - Musculoskeletal Musculoskeletal: reports: Muscle aches, Stiffness, Limited range of motion, Muscle weakness, Assistive devices (uses cane to navigate) - Integumentary Integumentary: reports: Pruritis, Dryness - Neurological Neurological: reports: General weakness, Memory problems (improved) - Psychiatric Psychiatric: reports: Anxiety - Hematologic/Lymphatic Hematologic/Lymph: reports: Anemia (9.3) - All Other Systems All Other Systems: reports: Reviewed and negative Physical Exam - Vital Signs Pulse Rate: 98 Respiratory Rate: 18 O2 Saturation: 99 Blood Pressure: 129/87 - Physical Exam General Appearance: positive: Alert Eyes Bilateral: positive: Normal inspection, No scleral icterus Neck: positive: Trachea midline Cardiovascular: positive: Tachycardia Respiratory: positive: No respiratory distress (with effort RR increase), Diminished in bases. negative: Wheezes Abdomen: positive: Tenderness (upper gastric area), Distended, Taut Skin: positive: Dryness Extremities: positive: Pedal edema (up to mid thigh;) Neurologic/Psychiatric: positive: Oriented x3, Mood/affect nml, Weakness, Other (birght and engaged) Palliative Care - POLST Patient has POLST: Yes POLST Status: DNR, Selective Treatment Pain: Pain improved, Location (mid epigastric area), Severity (3-4/10), Comment (currently on Fentanyl 50 mcg; to receive new patches today; using hydromorphone 4 mg prioir to meals helping wiht eating 3-4 x a day) Tiredness/Fatigue: Moderate (4-6) Drowsiness/Sedation: Moderate (4-6) Nausea: Mild (1-3) Anorexia: Moderate (4-6) Dyspnea: Moderate (4-6) Depression: Mild (1-3) Anxiety: Mild (1-3) Feelings of wellbeing/Perceived Quality of Life: Good, Improved Sleep: Sleeps well Constipation: Yes, Opoid induced, Managed Performance Status: Patient is moving better, is easier to get from sit to stand. She is ambulating with a cane and more upright. She is feeling a little bit stronger overall. - Palliative Care Discussion: Discussion continues on processing current diagnosis, impact on both her physical and mental health, lessons that are positive she is learning, as well as challenges. Counseling provided to normalize feelings of grief and loss as well as uncertainty. Patient does feel like she has enough community/family support. We will continue to follow alongside with palliative care. Results - Lab Results Lab results reviewed: Yes Impression and Recommendations - Palliative Care Impression: This is a 71-year-old woman with metastatic cholangiocarcinoma from the proximal duct with liver mets and ascites, diagnosed 05/2021. She has completed cycle 3, with transition from cisplatin to carboplatin secondary to renal function. She continues with persistent ascites, but is tolerating without paracentesis. We will continue to work toward that end. Her pain is improved, she is doing better with intake, constipation better managed. Palliative care continue provide support for pain and symptom management, anticipatory guidance and coordination of care. Recommendations/Counseling Done: 1. Pain of neoplastic origin. Patient currently on fentanyl patch, will receive 50 mcg patch today. She is using hydromorphone 4 mg for breakthrough pain, using it ahead of meals with better intake. Patient does feel current pain management acceptable, and feeling like she has better expectations. 2. Ascites. Patient is tolerating taut abdomen, with no increase in pain. Mild increase shortness of breath, though this may also be attributed to her anemia. Patient is scheduled for weekly paracentesis, reviewed again goal to try and avoid if possible secondary to metabolic shifts. She is slightly larger, but is doing better with pain and eating. Agreed would have conversation on Thursday and decide if needs paracentesis or not. She does have CT scan of the abdomen for restaging on Thursday. 3. Constipation. Patient is doing much better, was unable to tolerate MiraLAX. Is currently taking senna 2 tabs twice daily, goal remains daily BM. Reports she has not gone today yet. Instructed to take extra 2 tonight if no BM. She is much more comfortable with bowels moving regularly. 4. Anorexia. Patient continues with poor taste and early satiety, is doing better with small frequent meals. She does miss "free water", but is doing okay with other fluids though difficult with taste changes. She reports she is encouraged at this point in time, as far as feels she has better caloric intake. We will continue to monitor. Can add mirtazapine if continues to be persistent. 5. Metastatic cholangiocarcinoma with liver mets. Patient is completed her third round of treatment, with pending CT scan next week for restaging. Patient has had some mild clinical response with improved pain, no worsening of ascites, will continue to follow. 45 minutes with review of chart, labs, counseling provided [id number] regarding pain and symptom management, and anticipatory guidance
== END 2021-08-13 13:59 | disposition home or self-care (01) ==
LOC: PC 13:58
PROVIDERS: ATTEND Nurse Practitioner Adult Health
DX: Z51.5 Encounter for palliative care (principal); G89.3 Neoplasm related pain (acute) (chronic); C24.0 Malignant neoplasm of extrahepatic bile duct; C78.7 Secondary malignant neoplasm of liver and intrahepatic bile duct; R63.0 Anorexia; Z66 Do not resuscitate; R18.8 Other ascites; K59.00 Constipation, unspecified; H53.8 Other visual disturbances; H91.90 Unspecified hearing loss, unspecified ear; R35.0 Frequency of micturition; R35.1 Nocturia; R53.1 Weakness; Z79.891 Long term (current) use of opiate analgesic; Z79.899 Other long term (current) drug therapy
CPT/HCPCS: 99215

== ENCOUNTER 2021-08-20 08:48 | Outpatient (CLI) | payer MEDICARE, BC | END 2021-08-20 08:49 | disposition home or self-care (01) | LOC: DI 08:48 | PROVIDERS: ATTEND Internal Medicine | DX: Z53.9 Procedure and treatment not carried out, unspecified reason (principal) ==

== ENCOUNTER 2021-08-21 11:05 | Outpatient (CLI) | payer MEDICARE, BC ==
--- NOTE | 2021-08-21 16:37 | Ultrasound Report ---
PROCEDURE: Abdominal Paracentesis INDICATIONS: CHOLANGIOCARCINOMA TECHNIQUE: The indications, alternatives, benefits, risks, and complications of the procedure were explained to the patient. Written informed consent was obtained and placed in the chart. The abdomen and pelvis were examined sonographically, and an appropriate site was chosen for paracentesis. The skin was pre pared and draped in the usual sterile fashion, and 1% lidocaine was infiltrated from the skin down th rough the peritoneal surface. A 19-gauge catheter-covered needle was then introduced into the perito vianney space, the catheter was advanced and the needle was withdrawn, and thereafter peritoneal fluid w as withdrawn. The catheter was then removed and a dressing was applied. The fluid was discarded if the clinician did not order diagnostic testing of the fluid. COMPARISON: none FINDINGS: Access site: Right lower quadrant. Needle: One-Step centesis catheter with introducer needle. Fluid volume and description: Cloudy yellow Fluid sent for diagnostic testinL Medications: 1% lidocaine for local anaesthesia. Complications: None. IMPRESSION: Successful ultrasound-guided paracentesis. Reviewed by: Marilee Thompson MD on 08/21/2021 4:35 PM PST Approved by: Marilee Thompson MD on 08/21/2021 4:35 PM PST Station ID: [id number]
== END 2021-08-21 11:06 | disposition home or self-care (01) ==
LOC: DI 11:05
PROVIDERS: ATTEND Internal Medicine
DX: C22.1 Intrahepatic bile duct carcinoma (principal)
CPT/HCPCS: 49083

== ENCOUNTER 2021-08-26 14:00 | Outpatient (CLI) | payer MEDICARE, BC ==
--- NOTE | 2021-08-26 17:26 | CONSULTATION NOTE ---
Palliative Care Follow Up - Referral Referring Provider: Dr. Fito Gustafson Time of Visit: 1400 45 min Referral setting: [facility] [place] Referral Reason: Pain of neoplastic origin/depression/ - Information Sources Records reviewed: RN notes reviewed, Previous records reviewed History/Review of Systems obtained from: Patient Exam limitations: No limitations - History of Present Illness Update Brief HPI Update: This is a 71-year-old woman with cholangiocarcinoma with liver mets, does have of left stent, now presents on CT scan with obstructed right sided biliary ducts, and continuing recurrent ascites. She did get a paracentesis on 08/21 secondary to increasing pain and discomfort with some relief. She has had some reaccumulation, but not as taut. She also has slight relief of her lower extremity edema, though this has been a severe is weeping, and today presents with some bilateral DTI on her heels secondary to pressure and compromised skin integrity. She and Jolene have just met with Dr. Gustafson, patient's CEA Is decreasing went from 23 15-19 95. Her other labs still remain compromised with a sodium of 127, protein 5.2 and an albumin of 1.9. There was also finding of an incidental pulmonary embolism, at this point in time they are going to start her on Xarelto 20 mg daily, and proceed with chemotherapy today. Patient continues to weigh benefits and burdens of continuing with treatment, recognizing the seriousness of her illness, and is feeling somewhat weighted by this today. Her pain is currently controlled on fentanyl 50 mcg patch, with hydromorphone 4 mg for breakthrough pain, she is averaging about 2 times a day, with midday and midafternoon with what she perceives is good control. She still has fairly severe discomfort in the mid epigastric area attributing to stent area. Past Medical History: Hypertension, high cholesterol, GERD, colon polyps, hepatitis, diverticulitis, cholelithiasis, osteoarthritis, fatigue Social History - Living Situation Living arrangement: At home Living Situation: With spouse/s.o. Support System: Patient is to Jolene, they have been together 12 years. They have 2 serina dogs. 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 They have had some family and friends that have provided some respite, it continues to be quite challenging with multiple appointments and patient's increasing care needs. Jolene also has a son who is a physician is helping them navigate their current journey. She has felt likely have appropriate support at this point. Medications/Allergies - Medications Home Medications: Ambulatory Orders Medication Instructions Recorded Confirmed Ondansetron [Zuplenz] 8 mg PO PRN PRN 07/08/21 08/12/21 Prochlorperazine [Compazine] 10 mg PO Q6H PRN 07/08/21 08/12/21 Baclofen 5 mg PO TID PRN MDD 30 mg 07/29/21 08/12/21 HYDROmorphone [Dilaudid] 4 mg PO Q3HR PRN 07/29/21 08/12/21 Naloxone HCl [Narcan] 1 spray JOSE DE JESUS PRN PRN 07/29/21 08/12/21 Omeprazole Magnesium 20 mg PO DAILY 07/29/21 08/12/21 Senna [Senokot] 8.6 mg PO TID MDD 2 tabs tid 07/29/21 08/12/21 fentaNYL [Fentanyl 25mcg patch] 50 mcg TOP .Q72 HOURS 07/29/21 08/12/21 Rivaroxaban [Xarelto] 1 tab PO DAILY 08/26/21 08/26/21 - Allergies Allergies/Adverse Reactions: Allergies Allergy/AdvReac Type Severity Reaction Status Date / Time codeine Allergy Nausea Verified 04/24/21 21:50 shellfish derived AdvReac Emesis Verified 04/24/21 21:50 Review of Systems - Constitutional Constitutional: reports: Fatigue, Weakness, Poor appetite - Eyes Eyes: reports: Blurred vision, Vision loss - Ears, Nose & Throat Ears, Nose & Throat: reports: Hearing loss, Hearing aids, Dry mouth - Cardiovascular Cardiovascular: reports: Edema (mild improvement), Lightheadedness, Exertional dyspnea, Decr. exercise tolerance - Respiratory Respiratory: reports: SOB at rest (improved slightly with paracentesis), SOB with exertion - Gastrointestinal Gastrointestinal: reports: Abdominal distention, Bloating, Early satiety, Other (taste changes). denies: Constipation, Reflux/heartburn - Genitourinary Genitourinary: reports: Frequency, Nocturia - Musculoskeletal Musculoskeletal: reports: Muscle aches, Stiffness, Limited range of motion, Muscle weakness, Assistive devices - Integumentary Integumentary: reports: Pruritis, Dryness, Other (weeping LE edema; skin dry scaley; DTI on heels right greater than left; great toes bright red) - Neurological Neurological: reports: General weakness, Memory problems (forgetfulness) - Psychiatric Psychiatric: reports: Depression (difficult conversations with oncology), Anxiety - Hematologic/Lymphatic Hematologic/Lymph: reports: Anemia (recent transfusion of 2 units with relief of symptoms) - All Other Systems All Other Systems: reports: Reviewed and negative Physical Exam - Physical Exam General Appearance: positive: No acute distress, Alert Eyes Bilateral: positive: Normal inspection, No scleral icterus Neck: positive: Trachea midline Respiratory: positive: No respiratory distress Abdomen: positive: Tenderness, Distended, Taut (improved with paracentesis but ascites did reccumlate) Skin: positive: Dryness, Pressure wound (2 cm area dark purple back of right heel; excoriation at heel fold; 1 cm dark area left heal; top of bilateral toes red) Extremities: positive: Pedal edema (unable to tolerate pressure stockings) Neurologic/Psychiatric: positive: Oriented x3, Weakness, Depressed mood/affect, Flat affect Palliative Care - POLST Patient has POLST: Yes POLST Status: DNR, Selective Treatment Pain: Pain improved, Location (mid epigastric area), Severity (6/10), Comment (using Fentanyl 25 mcg and hydromorphone 4 mg for BTP avg 2/24 hours) Constipation: Yes, Opoid induced, Managed Performance Status: Patient continues with functional decline, is able to ambulate short distances, does have increasing difficulty with activity tolerance. - Palliative Care Discussion: Met with Ashley, very disappointed with the appointment with Dr. Gustafson. Does understand the seriousness of her illness, trying to think about weighing benefits and burdens of continuing treatment in the future. She does not feel like she has much choice at this point, does not want to "give up" but also trying to put it into context as far as what makes sense moving forward. We did discuss threshold for making those decisions, but those decisions would look like as well as the continuum of care of hospice. Jolene is not present for this, she reports her going to have some conversations this evening, will check in with them tomorrow for further conversation or questions they have regarding weighing these difficult decisions Results - Lab Results Lab results reviewed: Yes Impression and Recommendations - Palliative Care Impression: This is a 71-year-old woman with metastatic cholangiocarcinoma from the proximal duct with liver mets and ascites, diagnosed 05/2021. She is currently continui ng with treatment, has had some response, but continues to decline both functionally as well as feeling more stressed emotionally. Her pain is currently controlled, constipation better managed, is feeling somewhat overwhelmed. Palliative care continue provide support for pain and symptom management, anticipatory guidance and coordination of care Recommendations/Counseling Done: 1. Pain of neoplastic origin. Patient currently on fentanyl patch, currently 50 mcg dose does appear to be working well. She is only using hydromorphone 4 mg about 2 times a day. She does report discomfort but is tolerable weighing benefits of sedation with pain relief. 2. Constipation. Patient reports she is managing with senna, goal remains daily BM. She is more comfortable with bowels moving on a regular basis, is titrating accordingly. 3. Ascites. Patient did get tapped last week, with only mild response. She is reaccumulating but not taut. She is going to try and avoid as able, is still on schedule, will reevaluate weekly. Hope is that we will be able to avoid, or decrease frequency at least every 2 to 3 weeks. 4. Metastatic Cholangiocarcinoma with liver mets. Patient has received 3 cycles of treatment, will be receiving another cycle today based on outcome from CT scans. Continues to weigh benefits and burdens of treatment moving forward. 5. Advanced care planning. Counseling provided regarding continuum of care in the context of setting priorities, defining goals, as well as threshold for deciding. At this point in time planning to move forward, continuing to hope for the best, has had some decrease in her CEA but continues to struggle with ongoing changes in her body and moderate to high symptom burden. Patient does have POLST in place with DN AR DNI, and selective treatments 45 minutes with review of oncology notes, CT scans, labs, coordination of care with oncologist, [id number] with patient, counseling and anticipatory guidance provided regarding continuum of care and defining goals
== END 2021-08-26 14:01 | disposition home or self-care (01) ==
LOC: PC 14:00
PROVIDERS: ATTEND Nurse Practitioner Adult Health
DX: Z51.5 Encounter for palliative care (principal); G89.3 Neoplasm related pain (acute) (chronic); C22.1 Intrahepatic bile duct carcinoma; R18.8 Other ascites; K59.03 Drug induced constipation; T40.2X5A Adverse effect of other opioids, initial encounter; Z66 Do not resuscitate
CPT/HCPCS: 99215

== ENCOUNTER 2021-09-07 18:20 | Emergency (ER) | payer MEDICARE, BC ==
[2021-09-07] MEDS ORDERED: HYDROmorphone 1 MG/ML CARPUJECT IVP STA ×3 (18:50→21:40)
--- NOTE | 2021-09-07 18:50 | ED Physician Documentation ---
History of Present Illness - Stated complaint Stated Complaint: ABD PX - Chief complaint Chief Complaint: Abd Pain - Additonal information Additional information: 71-year-old female who has a known history of cholangiocarcinoma with liver mets and is receiving palliative chemotherapy presents to the emergency department with worsening abdominal pain, worsening ascites, fatigue and feeling lightheaded. She received palliative chemotherapy on 02 September. Since then she has had progressive symptoms with ascites and increased abdominal pain She is requesting a paracentesis today. Her last paracentesis was about 2 weeks ago. Patient does have a left biliary stent but recent CT imaging has shown obstructed right-sided biliary ducts. These have not yet been stented and she was to follow-up with GI at [place]. She denies fevers, melena, chest pain. no recent syncope Review of Systems Constitutional: denies: Fever, Chills Eyes: reports: Reviewed and negative Ears: reports: Reviewed and negative Nose: reports: Reviewed and negative Throat: reports: Reviewed and negative Cardiac: reports: Reviewed and negative Respiratory: denies: Dyspnea GI: reports: Abdominal Pain, Abdominal Swelling : denies: Dysuria, Frequency, Hesitancy Skin: denies: Rash, Lesions PD PAST MEDICAL HISTORY - Past Medical History Cardiovascular: Hypertension, High cholesterol Respiratory: None Endocrine/Autoimmune: None GI: GERD, Colon polyps, Hepatitis, Diverticulitis, Cholelithiasis : None HEENT: None Psych: None Musculoskeletal: Osteoarthritis, Fatigue Derm: None - Past Surgical History Past Surgical History: Yes General: Cholecystectomy, Appendectomy, EGD, Other Ortho: Spine surgery HEENT: Rhinoplasty, Tonsil/Adenoidectomy - Present Medications Home Medications: Ambulatory Orders Medication Instructions Recorded Confirmed Ondansetron [Zuplenz] 8 mg PO PRN PRN 07/08/21 08/12/21 Prochlorperazine [Compazine] 10 mg PO Q6H PRN 07/08/21 08/12/21 Baclofen 5 mg PO TID PRN MDD 30 mg 07/29/21 08/12/21 HYDROmorphone [Dilaudid] 4 mg PO Q3HR PRN 07/29/21 08/12/21 Naloxone HCl [Narcan] 1 spray JOSE DE JESUS PRN PRN 07/29/21 08/12/21 Omeprazole Magnesium 20 mg PO DAILY 07/29/21 08/12/21 Senna [Senokot] 8.6 mg PO TID MDD 2 tabs tid 07/29/21 08/12/21 fentaNYL [Fentanyl 25mcg patch] 50 mcg TOP .Q72 HOURS 07/29/21 08/12/21 Rivaroxaban [Xarelto] 1 tab PO DAILY 08/26/21 08/26/21 - Allergies Allergies/Adverse Reactions: Allergies Allergy/AdvReac Type Severity Reaction Status Date / Time codeine Allergy Nausea Verified 09/07/21 18:23 shellfish derived AdvReac Emesis Verified 09/07/21 18:23 - Social History Does the pt smoke?: No Smoking Status: Never smoker Does the pt drink ETOH?: Yes Does the pt have substance abuse?: No - Immunizations Immunizations are current?: Yes - POLST Patient has POLST: Yes PD ED PE EXPANDED - General General: Alert, In Pain - Cardiac Cardiac: Tachy, Radial strong equal, Pedal strong equal, Cap refill < 2 sec. No: Murmur Present - Respiratory Respiratory: Clear to ausultation nena. No: Distress, Labored - Abdomen Abdomen: Normal Bowel sounds, Distended (Mildly distended abdomen with palpable ascites. Tender though not peritoneal.), Tender to palpation - Derm Derm: Normal color, Warm and dry. No: Jaundiced - Neuro Neuro: Alert and Oriented X 3, CNII-XII intact - GCS Eye Opening: Spontaneous Motor: Obeys Commands Verbal: Oriented Total: 15 Results - Vitals Vitals: Vital Signs - 24 hr 09/07/21 09/07/21 18:23 22:00 Temperature 36.8 C Heart Rate 112 H 100 Respiratory 18 19 Rate Blood Pressure 141/79 H 140/87 H O2 Saturation 97 97 Oxygen O2 Source Room air - EKG (time done) 1848 Rate: Rate (enter#) (115) Rhythm: Sinus tachycardia Fries: LAD, Anterior hemiblock (LAFB) Intervals: Normal NM. No: Prolonged QT QRS: Normal Ischemia: Non specific changes Compare to prior EKG: Unchanged from prior EKG Computer interpretation: Agree with computer - Labs Labs: Microbiology 09/07/21 20:17 Body Fluid Culture - Preliminary Other - Abdominal Laboratory Tests 09/07/21 09/07/21 09/07/21 18:50 18:50 18:50 WBC 9.5 RBC 2.56 L Hgb 7.7 L Hct 23.4 L MCV 91.4 MCH 30.1 MCHC 32.9 RDW 21.5 H Plt Count 97 L MPV 9.5 Neut # (Auto) Not Reportable Lymph # (Auto) Not Reportable [place] # (Auto) Not Reportable Eos # (Auto) Not Reportable Baso # (Auto) Not Reportable Absolute Nucleated RBC Not Reportable Total Counted 100 Band Neuts % (Manual) 2 Abnorm Lymph % (Manual) 0 Metamyelocytes % 2 H Myelocytes % 1 H Nucleated RBC % Not Reportable Neutrophils # (Manual) 7.1 H Lymphocytes # (Manual) 1.2 L Monocytes # (Manual) 0.9 Eosinophils # (Manual) 0.0 Basophils # (Manual) 0.0 Differential Comment MANUAL DIFFERENTIAL WBC Morphology 1+ TOXIC GRANULATION Platelet Estimate DECREASED (<130,000) Platelet Morphology NORMAL APPEARANCE RBC Morph Micro Appear 3+ ANISOCYTOSIS PT 26.7 H INR 2.4 H Sodium 130 L Potassium 4.0 Chloride 92 L Carbon Dioxide 29 Anion Gap 9.0 BUN 18 Creatinine 0.7 Estimated GFR (MDRD) 83 L Glucose 114 H Lactic Acid Calcium 7.5 L Total Bilirubin 0.7 AST 41 ALT 45 Alkaline Phosphatase 438 H Ammonia Troponin I High Sens Total Protein 5.7 L Albumin 2.4 L Globulin 3.3 Albumin/Globulin Ratio 0.7 L Lipase 23 Urine Color Urine Clarity Urine pH Ur Specific [place] Urine Protein Urine Glucose (UA) Urine Ketones Urine Occult Blood Urine Nitrite Urine Bilirubin Urine Urobilinogen Ur Leukocyte Esterase Ur Microscopic Review Urine Culture Comments Fluid Source Fluid Color Fluid Clarity Fluid WBC Fluid RBC Fluid Neutrophils % Fluid Lymphocytes % Fluid Monocytes % Fluid Macrophages % Fld Mesothelial Cell % Fluid Crystals 09/07/21 09/07/21 09/07/21 18:50 18:50 18:50 WBC RBC Hgb Hct MCV MCH MCHC RDW Plt Count MPV Neut # (Auto) Lymph # (Auto) [place] # (Auto) Eos # (Auto) Baso # (Auto) Absolute Nucleated RBC Total Counted Band Neuts % (Manual) Abnorm Lymph % (Manual) Metamyelocytes % Myelocytes % Nucleated RBC % Neutrophils # (Manual) Lymphocytes # (Manual) Monocytes # (Manual) Eosinophils # (Manual) Basophils # (Manual) Differential Comment WBC Morphology Platelet Estimate Platelet Morphology RBC Morph Micro Appear PT INR Sodium Potassium Chloride Carbon Dioxide Anion Gap BUN Creatinine Estimated GFR (MDRD) Glucose Lactic Acid 1.2 Calcium Total Bilirubin AST ALT Alkaline Phosphatase Ammonia < 10.0 Troponin I High Sens 15.4 H* Total Protein Albumin Globulin Albumin/Globulin Ratio Lipase Urine Color Urine Clarity Urine pH Ur Specific [place] Urine Protein Urine Glucose (UA) Urine Ketones Urine Occult Blood Urine Nitrite Urine Bilirubin Urine Urobilinogen Ur Leukocyte Esterase Ur Microscopic Review Urine Culture Comments Fluid Source Fluid Color Fluid Clarity Fluid WBC Fluid RBC Fluid Neutrophils % Fluid Lymphocytes % Fluid Monocytes % Fluid Macrophages % Fld Mesothelial Cell % Fluid Crystals 09/07/21 09/07/21 09/07/21 20:17 20:17 21:16 WBC RBC Hgb Hct MCV MCH MCHC RDW Plt Count MPV Neut # (Auto) Lymph # (Auto) [place] # (Auto) Eos # (Auto) Baso # (Auto) Absolute Nucleated RBC Total Counted Band Neuts % (Manual) Abnorm Lymph % (Manual) Metamyelocytes % Myelocytes % Nucleated RBC % Neutrophils # (Manual) Lymphocytes # (Manual) Monocytes # (Manual) Eosinophils # (Manual) Basophils # (Manual) Differential Comment WBC Morphology Platelet Estimate Platelet Morphology RBC Morph Micro Appear PT INR Sodium Potassium Chloride Carbon Dioxide Anion Gap BUN Creatinine Estimated GFR (MDRD) Glucose Lactic Acid Calcium Total Bilirubin AST ALT Alkaline Phosphatase Ammonia Troponin I High Sens Total Protein Albumin Globulin Albumin/Globulin Ratio Lipase Urine Color YELLOW Urine Clarity CLEAR Urine pH 7.5 Ur Specific [place] 1.010 Urine Protein NEGATIVE Urine Glucose (UA) NEGATIVE Urine Ketones NEGATIVE Urine Occult Blood NEGATIVE Urine Nitrite NEGATIVE Urine Bilirubin NEGATIVE Urine Urobilinogen 0.2 (NORMAL) Ur Leukocyte Esterase NEGATIVE Ur Microscopic Review NOT INDICATED Urine Culture Comments NOT INDICATED Fluid Source PERITONEAL Fluid Color YELLOW Fluid Clarity CLOUDY Fluid WBC 159 Fluid RBC 1000 Fluid Neutrophils % 30 Fluid Lymphocytes % 36 Fluid Monocytes % 3 Fluid Macrophages % 25 Fld Mesothelial Cell % 6 Fluid Crystals NONE SEEN - Rads (name of study) CT abd Radiology: Final report received (Acute abdominal or pelvic abnormality. Known cholangiocarcinoma with metallic biliary stent and dilated intrahepatic bile ducts. Previously described right liver biloma has resolved. Ascites unchanged. Right lower lobe nonobstructive pulmonary embolus is unchanged) Procedures - Paracentesis Preparation: Consent obtained, Ultrasound guidance Location: RLQ Technique: Z-tract, Catheter over needle Fluid: Cloudy, Sent for cell count, Sent for gram stain, Sent for culture, Volume - enter cc (2800) Aftercare: No complications, Patient tolerated well, Dressing applied PD MEDICAL DECISION MAKING - ED course Complexity details: reviewed results, re-evaluated patient, considered differential, d/w patient, d/w family ED course: 71-year-old female who has a history of cholangiocarcinoma as well as liver mets presents to the emergency department with worsening abdominal pain after recent recent receiving chemotherapy for her cancer. She has received therapeutic paracentesis in the past. She has not had any fevers. She does have a fentanyl patch in place which is changed every 3 days as well as Dilaudid which she is using 3-4 times a day on average. She is hesitant to increase it more as though it can control her pain it causes her to be sleepy. Her screening labs today were evaluated she does have the noted anemia but no leukocytosis, leukopenia or fevers. Her lactate is not elevated. Blood cultures are pending. Though she does have fairly elevated alk phos her T bili is not elevated. We did do a paracentesis at the bedside today. 2800 mils of fluid was drained. It was very chylous in appearance. The Gram stain was negative and the cell count showed just over 150 WBCs. This is not consistent with a bacterial or peritoneal infection. We also completed a CT of the abdomen. Reassuringly it does show the previously noted right-sided biloma that has fully resolved. She does continue to have some biliary obstruction and the left-sided stent remains in place. But again her total serum bilirubin is not indicated elevated indicating that the stents are functioning appropriately at this time. I did spend a fair amount of time at the bedside with the patient and her partner. Though initially they were hoping for admission to the hospital for pain control, her symptoms have improved somewhat here in the emergency department after draining 2800 mils of ascites. She did receive a total of 3 mg of Dilaudid here in the emergency department. We discussed that they do have room to increase the use of their Dilaudid at home. She is only taking it on average of 3-4 times a day. We discussed that she could take it as often as 6 times a day. She also receives a fentanyl patch every 72 hours. The patient and her partner will call palliative care on Thursday to discuss increasing the fentanyl dosing. Departure - Departure Disposition: Home, Self Care Clinical Impression: Cholangiocarcinoma, Anticoagulated Abdominal ascites Qualifiers: Ascites type: malignant Qualified Code(s): R18.0 - Malignant ascites Abdominal pain Qualifiers: Abdominal location: generalized Qualified Code(s): R10.84 - Generalized abdominal pain Anemia Qualifiers: Anemia type: other cause Other causes of anemia: other cause, not classified Qualified Code(s): D64.89 - Other specified anemias Condition: Stable Record reviewed to determine appropriate education?: Yes Follow-Up: Eugenia Gomez ARNP [Primary Care Provider] - Comments: Ashley I wish you and your partner peace during this journey. You were seen in the emergency department today for increasing abdominal pain after receiving your last round of chemotherapy. Today in the emergency department we did drain approximately 2800 mL of ascites. The labs that we sent do not show signs of infection within your abdomen. This is important. The CT scan that we did shows that your stent is in appropriate position within the liver. The previously seen biloma or bile fluid collection in the right side of the liver has fully resolved. Your bilirubin is not elevated. It is very common to have increased fatigue the longer one remain on chemotherapy. I encourage you to call Eugenia Gomez on Thursday to discuss changing the fentanyl dosing. You can take the Dilaudid up to 6 times a day. It is important that you continue to take your stool softeners as you will get constipated with this. If at any point over the weekend you have fevers, suddenly severe or different abdominal pain, vomiting then please do not hesitate to return immediately to the emergency department.
[2021-09-07 18:59] LABS: BASOPHILS % (AUTO) 0.7 %; EOSINOPHILS % (AUTO) 0.1 %; HCT - HEMATOCRIT 23.4 % (37.0-47.0); HGB - HEMOGLOBIN 7.7 g/dL (12.0-16.0); LYMPHOCYTES % (AUTO) 11.4 %; MEAN CORPUSCULAR HEMOGLOBIN 30.1 pg (27.0-31.0); MEAN CORPUSCULAR HGB CONC 32.9 g/dL (32.0-36.0); MEAN CORPUSCULAR VOLUME 91.4 fL (81.0-99.0); MEAN PLATELET VOLUME 9.5 fL (7.9-10.8); MONOCYTES % (AUTO) 5.2 %; NEUTROPHILS % (AUTO) 78.7 %; PLT - PLATELET COUNT 97 10^3/uL (130-450); RED BLOOD COUNT 2.56 10^6/uL (4.20-5.40); RED CELL DISTRIBUTION WIDTH 21.5 % (12.0-15.0); WHITE BLOOD COUNT 9.5 x10^3/uL (4.8-10.8)
[2021-09-07 19:02] LABS: ABNORMAL LYMPHS % (MANUAL) 0 %
[2021-09-07 19:07] LABS: INR 2.4 (0.8-1.2); PT - PROTHROMBIN TIME 26.7 secs (9.9-12.6)
[2021-09-07 19:10] LABS: ALBUMIN 2.4 g/dL (3.2-5.5); ALBUMIN/GLOBULIN RATIO 0.7 (1.0-2.2); BILIRUBIN,TOTAL 0.7 mg/dL (0.2-1.0); CALCIUM 7.5 mg/dL (8.5-10.3); CREATININE 0.7 mg/dL (0.4-1.0); TOTAL PROTEIN 5.7 g/dL (6.7-8.2)
[2021-09-07 19:29] LABS: BAND NEUTROPHILS % (MANUAL) 2 %; LYMPHOCYTES # (MANUAL) 1.2 10^3/uL (1.5-3.5); LYMPHOCYTES % (MANUAL) 13 %; METAMYELOCYTES % (MANUAL) 2 %; MONOCYTES # (MANUAL) 0.9 10^3/uL (0.0-1.0); MYELOCYTES % (MANUAL) 1 %; NEUTROPHILS # (MANUAL) 7.1 10^3/uL (1.5-6.6)
[2021-09-07 19:31] LABS: DIFFERENTIAL COMMENT MANUAL DIFFERENTIAL; PLATELET ESTIMATE, MANUAL DECREASED (<130,000) (NORMAL); PLATELET MORPHOLOGY NORMAL APPEARANCE (NORMAL); RBC MORPHOLOGY (MULTIPLE) 3+ ANISOCYTOSIS (NORMAL); WBC MORPHOLOGY (MULTIPLE) 1+ TOXIC GRANULATION (NORMAL)
--- NOTE | 2021-09-07 19:33 | XRAY Report ---
PROCEDURE: Chest 1 View X-Ray INDICATIONS: chest pain COMMENTS: chest pain/ Pt states bile ducut ca, abdominal px following ch emo treatment 5 days ago PRIORS: none TECHNIQUE: One view of the chest was acquired. COMPARISON: None FINDINGS: Surgical changes and devices: ] Chest wall port Lungs and pleura: No pleural effusions or pneumothorax. Lungs are clear. Mediastinum: Mediastinal contours appear normal. Heart size is normal. Bones and chest wall: No suspicious bony lesions. Overlying soft tissues appear unremarkable. IMPRESSION: No acute cardiopulmonary abnormality Reviewed by: Jay Ha on 09/07/2021 7:32 PM PST Approved by: Jay Ha on 09/07/2021 7:[address] [facility] Station ID: [id number]
[2021-09-07] MEDS ORDERED: SODIUM CHLORIDE 0.9% 1,000 ML IV STA (20:23)
[2021-09-07] MEDS ORDERED: IOVERSOL 320 100 ML VIAL IVP ONE ×2 (20:33→21:14)
[2021-09-07 20:57] LABS: BF SOURCE PERITONEAL; CC,BF RBC 1000 /mm^3; CC,BF WBC 159 /mm^3
[2021-09-07 20:58] LABS: BF CLARITY CLOUDY; BF COLOR YELLOW
[2021-09-07 21:23] LABS: BILIRUBIN,URINE NEGATIVE (NEGATIVE); GLUCOSE, URINE (UA) NEGATIVE (NEGATIVE); KETONES,URINE (UA) NEGATIVE (NEGATIVE); LEUKOCYTE ESTERASE, URINE NEGATIVE (NEGATIVE); NITRITE,URINE NEGATIVE (NEGATIVE); OCCULT BLOOD,URINE NEGATIVE (NEGATIVE); PH,URINE 7.5 PH (5.0-7.5); PROTEIN,URINE NEGATIVE (NEGATIVE); UROBILINOGEN,URINE 0.2 (NORMAL) E.U./dL (NORMAL)
[2021-09-07 21:25] LABS: LYMPHOCYTES %,BODY FLUID 36 %; MACROPHAGES %,BODY FLUID 25 %; MESOTHELIAL %, BF 6 %; MONOCYTES %,BODY FLUID 3 %; NEUTROPHILS %, BF 30 %
[2021-09-07 21:29] LABS: CLARITY,URINE CLEAR (CLEAR)
--- NOTE | 2021-09-07 21:37 | CT Report ---
PROCEDURE: Abdomen/Pelvis W INDICATIONS: hc of liver cancer; s/p prarcentesis CONTRAST: IV CONTRAST: Optiray 320 ml: 100 PO CONTRAST: *NO PO CONTRAST TECHNIQUE: After the administration of contrast, 5 mm thick sections acquired from the diaphragms to the sym physis. 5 mm thick coronal and sagittal reformats were acquired. For radiation dose reduction, the following was used: automated exposure control, adjustment of mA and/or kV according to patient size . COMPARISON: None. FINDINGS: Image quality: Excellent. ABDOMEN: Lung bases: Mild bibasilar atelectasis, the lung bases are otherwise clear. Heart size is normal. A nonocclusive pulmonary embolus in the posterior basal segment of the right lower lobe pulmonary jaycee ry is unchanged compared to the prior CT. Solid organs: Liver demonstrates intrahepatic biliary ductal dilatation. A metallic right common bile duct stent is present. A previously described low density in segment 7 of the right lobe previously thought to be a biloma is no longer visualized. Status post cholecystectomy. Air in the left lobe nena iary ducts is unchanged. The spleen, adrenal glands, both kidneys are normal. Peritoneum and bowel: Bowel loops demonstrate normal wall thickness and caliber. No free fluid or a ir. There is stool in the large bowel. Diverticula of the sigmoid colon is present. There is a small hiatal hernia. Moderate ascites is present, unchanged compared to the prior CT. Nodes and vessels: No retroperitoneal or mesenteric adenopathy by size criteria. Aorta and inferior vena cava are normal in size. Miscellaneous: No ventral hernias. PELVIS: Genitourinary: Bladder wall thickness is normal. Miscellaneous: No inguinal hernias or adenopathy. Bones: No suspicious bony lesions. No vertebral body compression fractures. IMPRESSION: 1. No acute abdominal or pelvic abnormality. 2. Known cholangiocarcinoma with a metallic biliary stent and dilated intrahepatic bile ducts. 3. Previously described possible right lobe of the liver biloma has resolved. 4. Ascites, unchanged. 5. Anasarca. 6. Right lower lobe nonobstructive pulmonary embolus is unchanged. Reviewed by: Jay Ha on 09/07/2021 9:36 PM PST Approved by: Jay Ha on 09/07/2021 9:36 PM PST Station ID: [id number]
[2021-09-07] MEDS ORDERED: ONDANSETRON 4 MG/2 ML VIAL IVP STA (21:40)
[2021-09-07] MEDS ORDERED: KETOROLAC 30 MG/ML VIAL IVP STA (21:41)
[2021-09-07 22:06] VITALS: BP 140/87
== END 2021-09-07 22:50 | disposition home or self-care (01) ==
LOC: ED 18:20
DX: C22.1 Intrahepatic bile duct carcinoma (principal); C78.7 Secondary malignant neoplasm of liver and intrahepatic bile duct; R18.0 Malignant ascites; K83.1 Obstruction of bile duct; R10.84 Generalized abdominal pain; D64.89 Other specified anemias; I26.99 Other pulmonary embolism without acute cor pulmonale; Z79.01 Long term (current) use of anticoagulants; R00.0 Tachycardia, unspecified; I44.4 Left anterior fascicular block; I10 Essential (primary) hypertension
CPT/HCPCS: 36415; 49082; 71045; 74177; 80053; 81003; 82140; 83605; 83690; 84484; 85025; 85610; 87040; 87070; 87205; 89051; 89060; 93005; 96374; 96375; 96376; 99284; J1170; Q9967; 81001; 87086

== ENCOUNTER 2021-09-09 13:00 | Outpatient (CLI) | payer MEDICARE, BC ==
--- NOTE | 2021-09-09 16:54 | CONSULTATION NOTE ---
Palliative Care Follow Up - Referral Referring Provider: Dr. Fito Gustafson Time of Visit: [id number] Referral setting: Home Referral Reason: Pain of neoplastic origin/Choliangiocarcinoma/DTI bilat heels - Information Sources Records reviewed: Previous records reviewed History/Review of Systems obtained from: Patient, Family ( Pennie) Exam limitations: No limitations - History of Present Illness Update Brief HPI Update: This is a 71-year-old woman with cholangiocarcinoma with liver mets, She is getting carboplatinum with gemcitabine, and received treatment last week. She reports after her chemo, each day she does continue to feel more poorly, more fatigued, increasing discomfort in her abdomen, with worsening ascites. She had had a paracentesis 2 weeks ago, was trying to stretch this out. She felt significantly worse and decided to go to the ED. They were able to perform a paracentesis and removed 2800 cc, she also had a hemoglobin of 7.7 with hematocrit of 23.4, her WBCs were 9.5. She did not present with at that time with any symptoms of infection, but did get a UA and cultures. At this point those are all negative. Patient has been having increased discomfort, this is mostly attributed to her worsening ascites, unfortunately despite her paracentesis, she has had quick reaccumulation. She is feeling just a sense of overwhelming fatigue, dizziness, and weakness. Arrangements are made for a blood transfusion tomorrow after consulting with her oncologist, for 1 unit of packed red blood cells. She is currently on fentanyl 50 mcg, with hydromorphone 4 mg for breakthrough pain, she tends to use this rather sparingly, and has been encouraged to use it more. She is currently without constipation taking her senna on a regular basis, as well as alternating her nausea medications. She has been eating and drinking, though does appear to have more wasting. She also presents today with lower extremity edema, weeping on her right leg and several small spots, and continued and possibly worsening of her DTI's on her bilateral heels, right greater than left. She has not had follow-up with wound care yet. Nor has she done well in offloading the pressure on her heels. Patient presents appropriately weighing benefits and burdens of continued treatment, she has been quite consistent she is not ready to give up. 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 Past Medical History: Hypertension, high cholesterol, GERD, colon polyps, hepatitis, diverticulitis, cholelithiasis, osteoarthritis, fatigue Social History - Living Situation Living arrangement: At home Living Situation: With spouse/s.o. Support System: Patient is to Jolene, they have been together for 12 years. 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 They have had friends who are in healthcare, step up to help with end-of-life planning and support, she is wondering what this might look like today. They have had visitors, and do feel well supported by friends. Medications/Allergies - Medications Home Medications: Ambulatory Orders Medication Instructions Recorded Confirmed Ondansetron [Zuplenz] 8 mg PO PRN PRN 07/08/21 09/09/21 Prochlorperazine [Compazine] 10 mg PO Q6H PRN 07/08/21 09/09/21 HYDROmorphone [Dilaudid] 4 mg PO Q3HR PRN 07/29/21 09/09/21 Naloxone HCl [Narcan] 1 spray JOSE DE JESUS PRN PRN 07/29/21 09/09/21 Omeprazole Magnesium 20 mg PO DAILY 07/29/21 09/09/21 Senna [Senokot] 8.6 mg PO TID MDD 2 tabs tid 07/29/21 09/09/21 fentaNYL [Fentanyl 25mcg patch] 62 mcg TOP .Q72 HOURS 07/29/21 09/09/21 Rivaroxaban [Xarelto] 1 tab PO DAILY 08/26/21 09/09/21 - Allergies Allergies/Adverse Reactions: Allergies Allergy/AdvReac Type Severity Reaction Status Date / Time codeine Allergy Nausea Verified 09/07/21 18:23 shellfish derived AdvReac Emesis Verified 09/07/21 18:23 Review of Systems - Constitutional Constitutional: reports: Fatigue, Weakness, Poor appetite, Other (patient with fluctuating wt with anasarca/ascites) - Eyes Eyes: reports: Blurred vision, Vision loss - Ears, Nose & Throat Ears, Nose & Throat: reports: Hearing loss, Hearing aids, Dry mouth - Cardiovascular Cardiovascular: reports: Edema (weeping noted on right LE; no s/s cellulitis;), Lightheadedness, Exertional dyspnea, Decr. exercise tolerance - Respiratory Respiratory: reports: SOB at rest (improved slightly with paracentesis), SOB with exertion - Gastrointestinal Gastrointestinal: reports: Abdominal distention, Bloating, Early satiety, Other (taste changes). denies: Constipation, Reflux/heartburn - Genitourinary Genitourinary: reports: Frequency, Nocturia - Musculoskeletal Musculoskeletal: reports: Muscle aches, Stiffness, Limited range of motion, Muscle weakness, Assistive devices (uses cane; encouraged to use walker with increased weakness) - Integumentary Integumentary: reports: Pruritis, Dryness, Other (weeping LE edema; skin dry scaley; DTI on heels right greater than left;) - Neurological Neurological: reports: General weakness, Memory problems (forgetfulness) - Psychiatric Psychiatric: reports: Depression, Anxiety - Hematologic/Lymphatic Hematologic/Lymph: reports: Anemia (7.7 at ED) - All Other Systems All Other Systems: reports: Reviewed and negative Physical Exam - Vital Signs Temperature: 97.3 C Pulse Rate: 118 Respiratory Rate: 18 O2 Saturation: 96 Blood Pressure: 132/84 - Physical Exam General Appearance: positive: Alert, Moderate distress Eyes Bilateral: positive: Normal inspection, No scleral icterus Neck: positive: Trachea midline Cardiovascular: positive: Tachycardia Respiratory: positive: Diminished in bases. negative: No respiratory distress (respiratory effort with talking) Abdomen: positive: Tenderness, Distended, Taut (improved with paracentesis but ascites did reccumlate) Skin: positive: Dryness, Pressure wound (2 cm area dark purple back of right heel; excoriation at heel fold; 1 cm dark area left heal; thickened peeling over feet) Extremities: positive: Pedal edema (using pads to contain the weeping right leg) Neurologic/Psychiatric: positive: Oriented x3, Weakness, Depressed mood/affect, Flat affect Palliative Care - POLST Patient has POLST: Yes POLST Status: DNR, Selective Treatment Pain: Pain worsening, Location (abdominal discomfort), Severity (mod/severe) Tiredness/Fatigue: Severe (7-10) Drowsiness/Sedation: Mild (1-3) Nausea: Mild (1-3) Anorexia: Mild (1-3) Dyspnea: Moderate (4-6) Depression: Moderate (4-6) Anxiety: Severe (7-10) Feelings of wellbeing/Perceived Quality of Life: Poor, Worsening Sleep: Sleeps well Constipation: Yes, Opoid induced, Managed Performance Status: Patient is much weaker, is having more dyspnea on exertion. Does feel some dizziness, most likely related to her anemia. She is able to ambulate in the house, is using cane, was encouraged to use her walker.Does need some assistance with dressing and bathing. - Palliative Care Discussion: Discussion as patient is quite discouraged with how poorly she is feeling, does not feel like this is good quality of life. She reports since she had her treatment, each day was worsening, to her point she ended up in the ED, today she is complaining of severe fatigue and wondering about returning. We did discuss in the context it would most likely be safer for her to arrange to do this outpatient in agreement. 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 We did discuss preparing for end-of-life, weighing quality of life versus impact of treatment on her current status. Recognizing treatment is palliative in nature, they do have good support. We will continue conversations with oncologist regarding prognosis. Results - Lab Results Lab results reviewed: Yes Lab and Imaging Results: Hemoglobin 7.7, hematocrit 23.4, platelets 97, sodium 130, potassium 4.0, BUN 18, creatinine 0.7, GFR 83, alk phos 438, calcium 7.5, total protein 5.7, albumin 2.4 CT scan, previously described right liver biloma had resolved, ascites unchanged, right lower lobe nonobstructing pulmonary embolus was unchanged. Impression and Recommendations - Palliative Care Impression: This is a serina 71-year-old woman with metastatic cholangiocarcinoma from the proximal duct with liver mets and ascites, diagnosed 05/2021. Currently she is continue with treatment, did have a difficult treatment cycle this last time, also with worsening ascites. She did have an ED acute stay, with paracentesis for 2800 mils, relief of some abdominal discomfort but continues with debilitating fatigue. In consult with oncology, will make arrangements for 1 unit PRBC. Pain continues to only be moderately controlled, will increase baseline fentanyl dosing. Palliative care continue provide support for pain and symptom management, anticipatory guidance, and coordination of care. Recommendations/Counseling Done: 1. Pain of neoplastic origin. Patient currently on fentanyl patch echogram dose, she reports the discomfort has been more troublesome. Her reports patient has high pain threshold, patient is fearful of increasing hydromorphone or medication secondary to his sedation. We did discuss can take a two-step approach, we will go ahead and order fentanyl 12 mcg patch to add to the 50, will take it to a couple patch changes and increase to 75 if does help. Patient's been encouraged to take her Hydromorphone more frequently to decrease discomfort. Patient verbalizes understanding. #2. DTI bilateral heels. Counseling provided regarding "floating heels" secondary to worsening and darkening of her bilateral pressure heels right greater than left. She also is having some thickened peeling. Encouraged to use some Aquaphor ointment for moisturizing. Patient does have some heel floats, but finds some difficulty to get in and out of bed. Reviewed again seriousness of her risk of complications from this. They have not had a wound visit yet, will follow up at [facility] tomorrow. #3. Ascites. Patient did receive paracentesis over weekend, have been trying to stretch those out, will schedule in 2 weeks, as schedule has completed. Patient's renal function has improved, may consider adding back diuretics, though patient is continue to struggle with adequate hydration. Will reach out to oncology again if patient is a candidate for a Pleurx. #4. Anemia. This is most likely multifactorial, will make arrangements for 1 unit packed red blood cells after consultation with oncology. Will make sure she gets typed and crossed for next Thursday, if does not recover well. May need another unit. #5. Metastatic cholangiocarcinoma with liver mets. Patient has continued with treatment, continue to weigh benefits and burdens of treatment moving forward. Patient with significant side effects this round, and worsening quality of life. #6. Advanced care planning. Counseling provided regarding the continuum of care, weighing benefits and burdens of treatment moving forward, patient this point in time is still choosing treatment. We did discuss again in the context of prognosis, quality of life versus quantity of life, as well as can sometimes hasten demise. 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
== END 2021-09-09 13:01 | disposition home or self-care (01) ==
LOC: PC 13:00
PROVIDERS: ATTEND Nurse Practitioner Adult Health
DX: Z51.5 Encounter for palliative care (principal); G89.3 Neoplasm related pain (acute) (chronic); C22.1 Intrahepatic bile duct carcinoma; R18.8 Other ascites; R53.0 Neoplastic (malignant) related fatigue; L89.626 Pressure-induced deep tissue damage of left heel; L89.616 Pressure-induced deep tissue damage of right heel; D63.0 Anemia in neoplastic disease; R53.1 Weakness; R06.09 Other forms of dyspnea; R42 Dizziness and giddiness; K59.03 Drug induced constipation; T40.2X5A Adverse effect of other opioids, initial encounter; Z79.899 Other long term (current) drug therapy; Z79.891 Long term (current) use of opiate analgesic; Z74.1 Need for assistance with personal care; Z66 Do not resuscitate
CPT/HCPCS: 99350

== ENCOUNTER 2021-09-17 12:47 | Outpatient (CLI) | payer MEDICARE, BC ==
--- NOTE | 2021-09-17 16:05 | Ultrasound Report ---
PROCEDURE: Abdominal Paracentesis INDICATIONS: CHOLANGIOCARCINOMA, ASCITES TECHNIQUE: The indications, alternatives, benefits, risks, and complications of the procedure were explained to the patient. Written informed consent was obtained and placed in the chart. The abdomen and pelvis were examined sonographically, and an appropriate site was chosen for paracentesis. The skin was pre pared and draped in the usual sterile fashion, and 1% lidocaine was infiltrated from the skin down th rough the peritoneal surface. A 19-gauge catheter-covered needle was then introduced into the perito vianney space, the catheter was advanced and the needle was withdrawn, and thereafter peritoneal fluid w as withdrawn. The catheter was then removed and a dressing was applied. The fluid was discarded if the clinician did not order diagnostic testing of the fluid. COMPARISON: 09/07/2021 FINDINGS: Access site: Right lower quadrant Needle: One-Step centesis catheter with introducer needle. Fluid volume and description: 3 L, lacteous opaque fluid Fluid sent for diagnostic testing: Not requested Medications: 1% lidocaine for local anaesthesia. Complications: None. IMPRESSION: Technically successful ultrasound-guided paracentesis. Reviewed by: Vitaly Shukla MD on 09/17/2021 4:04 PM PST Approved by: Vitaly Shukla MD on 09/17/2021 4:04 PM PST Station ID: [id number]
== END 2021-09-17 12:48 | disposition home or self-care (01) ==
LOC: LAB 12:47 → DI 12:48
PROVIDERS: ATTEND Internal Medicine
DX: R18.8 Other ascites (principal); D64.9 Anemia, unspecified; C72.1 Malignant neoplasm of cauda equina
CPT/HCPCS: 49083

== ENCOUNTER 2021-09-25 14:15 | Outpatient (CLI) | payer MEDICARE, BC ==
--- NOTE | 2021-09-25 21:16 | CONSULTATION NOTE ---
Palliative Care Follow Up - Referral Referring Provider: Jesica Morton PA-C Time of Visit: 1300 45 min Referral setting: [facility] [place] Referral Reason: Pain of neoplastic origin/Ascites/DTI bilat heels/choliangiocarcinoma - Information Sources Records reviewed: RN notes reviewed, Previous records reviewed History/Review of Systems obtained from: Patient Exam limitations: No limitations - History of Present Illness Update Brief HPI Update: This is a serina 71-year-old woman with cholangiocarcinoma with liver mets, who is receiving carboplatinum/gemcitabine with recent restaging scan not showing progression of disease. What is of biggest concern though is patient's continued related side effects of disease with with recurrent ascites, treatment related toxicities of renal insufficiency electrolyte and abnormalities, hypoalbuminemia and chemo induced neutropenia and anemia. I am seeing patient today in response to concerns for needing a paracentesis prior to scheduled on 10/01. The hope was to be able to stretch those out to every 2 weeks, last paracentesis was on 09/17. They were able to remove 3 L, at that time. She has a reaccumulated, and is feeling significant pressure right at the sternal notch, with firmness, no mass-effect felt mostly just taut to palpation. She is having increased shortness of breath and discomfort from her abdominal girth. She is also experiencing persistent anasarca in her legs hips and sacral area. Of improvement, though is her legs are no longer weeping. On examination she still has some dried peeling of her callus of her right heel, but the dark purple is faded, and tenderness improving. They have been "floating her heels", as well as providing lower extremity care and loosening. Patient continues with pain at a 4 out of 10 though this is tolerable, she is on fentanyl 75 mcg patch, using the hydromorphone 4 mg 2-3 times a day, first when she gets up and later in the day when she is more fatigued. She does feel this is acceptable at this point in time, as her ascites gets worse so she does get more uncomfortable and does get at least some temporary relief with this. Patient continues to reflect on her current journey, she does understand this is about as "good is is going to get, does still find though she has high symptom burden that she is still perceiving she has quality of life. We will continue treatment until no longer effective and or this does not wait in that direction. She has enjoyed visits in time with her friends, she has been planning for her end-of-life but is hoping again for both quality and quantity. Past Medical History: Hypertension, high cholesterol, GERD, colon polyps, hepatitis, diverticulitis, cholelithiasis, osteoarthritis, fatigue Social History - Living Situation Living arrangement: At home Living Situation: With spouse/s.o. 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 They have been together for 12 years, they have 2 serina dogs and a significant amount of support from friends family in the community. They are looking to hire some increased support, patient is not left alone, she does have friends who do bring her up for visits to give Jolene a break. Nights are doing okay currently which is kind of the threshold for helping Jolene as well. Medications/Allergies - Medications Home Medications: Ambulatory Orders Medication Instructions Recorded Confirmed Ondansetron [Zuplenz] 8 mg PO PRN PRN 07/08/21 09/25/21 Prochlorperazine [Compazine] 10 mg PO Q6H PRN 07/08/21 09/25/21 HYDROmorphone [Dilaudid] 4 mg PO Q3HR PRN 07/29/21 09/25/21 Naloxone HCl [Narcan] 1 spray JOSE DE JESUS PRN PRN 07/29/21 09/25/21 Omeprazole Magnesium 20 mg PO DAILY 07/29/21 09/25/21 Senna [Senokot] 8.6 mg PO TID MDD 2 tabs tid 07/29/21 09/25/21 Rivaroxaban [Xarelto] 1 tab PO DAILY 08/26/21 09/25/21 Alprazolam [Xanax] 0.25 mg PO TID PRN 09/25/21 09/25/21 fentaNYL [Fentanyl 75mcg patch] 75 mcg TOP .Q3DAYS 09/25/21 09/25/21 - Allergies Allergies/Adverse Reactions: Allergies Allergy/AdvReac Type Severity Reaction Status Date / Time codeine Allergy Nausea Verified 09/07/21 18:23 shellfish derived AdvReac Emesis Verified 09/07/21 18:23 Review of Systems - Constitutional Constitutional: reports: Fatigue, Weakness, Poor appetite - Eyes Eyes: reports: Blurred vision, Vision loss - Ears, Nose & Throat Ears, Nose & Throat: reports: Hearing loss, Hearing aids, Dry mouth - Cardiovascular Cardiovascular: reports: Edema (anasarca feet/legs/hips/sacrum), Lightheadedness, Exertional dyspnea, Decr. exercise tolerance - Respiratory Respiratory: reports: SOB at rest, SOB with exertion - Gastrointestinal Gastrointestinal: reports: Abdominal distention, Bloating, Early satiety, Other. denies: Constipation - Genitourinary Genitourinary: reports: Frequency, Nocturia (1 x night) - Musculoskeletal Musculoskeletal: reports: Muscle aches, Stiffness, Limited range of motion, Muscle weakness, Assistive devices - Integumentary Integumentary: reports: Pruritis, Dryness, Other - Neurological Neurological: reports: General weakness, Memory problems - Psychiatric Psychiatric: reports: Depression, Anxiety - Hematologic/Lymphatic Hematologic/Lymph: reports: Anemia (8.2) - All Other Systems All Other Systems: reports: Reviewed and negative Physical Exam - Vital Signs Pulse Rate: 104 Respiratory Rate: 18 O2 Saturation: 100 Blood Pressure: 135/80 - Physical Exam General Appearance: positive: Alert, Mild distress (related to ascites pain) Eyes Bilateral: positive: Normal inspection, No scleral icterus ENT: positive: Other (mask on) Neck: positive: Trachea midline Cardiovascular: positive: Tachycardia Respiratory: positive: Diminished in bases Abdomen: positive: Tenderness, Distended, Taut Skin: positive: Dryness, Pressure wound (see HPI improved) Extremities: positive: Pedal edema Neurologic/Psychiatric: positive: Oriented x3, Weakness, Depressed mood/affect, Flat affect Palliative Care - POLST Patient has POLST: Yes POLST Status: DNR, Selective Treatment Pain: Pain improved, Location (see hPI;), Severity (4/10) Tiredness/Fatigue: Moderate (4-6) Drowsiness/Sedation: Moderate (4-6) Nausea: Moderate (4-6) Anorexia: Severe (7-10) Dyspnea: Severe (7-10) Depression: Mild (1-3) Anxiety: Moderate (4-6) Feelings of wellbeing/Perceived Quality of Life: Good, Acceptable, No change Sleep: Sleep improved Constipation: Yes, Opoid induced, Managed Performance Status: Patient has had functional decline, but currently is able to ambulate short distances. She is somewhat limited by her breathlessness and lower extremity weakness as well as swelling in her lower extremities. She does need some assistance with dressing, she is still able to get in and out of the bed at night to void. When she is feeling more unsteady, she does use a walker. - Palliative Care Discussion: Patient continues to weigh benefits and burdens of moving forward with treatment, currently still feels her current quality of life is acceptable. She does appreciate all the support she is gone from her friends and her partner. She is trying to focus on the good, she does understand the seriousness of her illness. 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 Results - Lab Results Lab results reviewed: Yes Impression and Recommendations - Palliative Care Impression: This is a 71-year-old woman with metastatic cholangiocarcinoma from the proximal duct with liver mets and ascites, originally diagnosed 05/2021. Currently she continues with treatment, but unfortunately has not had good response with her ascites. She is having increased abdominal discomfort, concern regarding patient be able to tolerate through the weekend, will go ahead and arrange for paracentesis on Thursday. Patient feels current pain regimen is adequate. Palliative care continue provide support for pain and symptom management, anticipatory guidance, and coordination of care Recommendations/Counseling Done: 1. Ascites. Patient presents with persistent ascites, worsening. Last paracentesis 09/17, had hoped to make it for 2 weeks to 10/01 unfortunately abdomen is with increasing discomfort and wanting to avoid ED visit over weekend. We will go ahead and arrange for paracentesis on 09/27. INR ordered for today in preparation. Patient continues with anasarca in her lower extremities, but weeping has stopped. We will continue to monitor, with hope to get on to stretch out paracentesis. Review of patient's intake, is taking about 32 ounces, and avoiding free water. 2. Pain of neoplastic origin. Patient is currently on fentanyl 75 mcg, she reports this is adequate at this point in time. She is using the hydromorphone 4 mg 2-3 times a day appropriately. She is not experiencing any excessive sedation, constipation is controlled, patient does have low-grade persistent nausea but is responding to ondansetron. 3. DTI bilateral heels. Examination shows the patient's heels are continue to improve, they are doing pressure relief as well as Aquaphor for the skin. Weeping has resolved at this point in time, we will continue to monitor. 4. Anemia. Patient is scheduled to have labs drawn Thursday with a hold tube.She is looking forward to having a week off into the holiday. 5. Metastatic cholangiocarcinoma with liver mets and carcinomatosis. Patient continues with treatment and weighing benefits and burdens of treatment moving forward. She continues with significant side effects but are finding them jeevan erable at this point time. 6. Advanced care planning. Patient continues to plan for the future in the continuum of care including end-of-life. She feels well supported at this point. She does have a POLST with DN AR/DNI and selective treatments. We will continue to follow and provide anticipatory guidance. 45 minutes with review of oncology notes, labs, [id number] with patient for examination, counseling regarding pain and symptom management and anticipatory guidance. Coordination of care with oncology team
== END 2021-09-25 14:16 | disposition home or self-care (01) ==
LOC: PC 14:15
PROVIDERS: ATTEND Nurse Practitioner Adult Health
DX: Z51.5 Encounter for palliative care (principal); G89.3 Neoplasm related pain (acute) (chronic); C22.1 Intrahepatic bile duct carcinoma; C78.7 Secondary malignant neoplasm of liver and intrahepatic bile duct; R18.8 Other ascites; L89.626 Pressure-induced deep tissue damage of left heel; L89.616 Pressure-induced deep tissue damage of right heel; D64.9 Anemia, unspecified; Z66 Do not resuscitate
CPT/HCPCS: 99215

== ENCOUNTER 2021-09-27 14:05 | Outpatient (CLI) | payer MEDICARE, BC ==
--- NOTE | 2021-09-27 16:23 | Ultrasound Report ---
PROCEDURE: Abdominal Paracentesis INDICATIONS: ASCITES TECHNIQUE: The indications, alternatives, benefits, risks, and complications of the procedure were explained to the patient. Written informed consent was obtained and placed in the chart. Preprocedure labs today demonstrated an INR of 1.4 and platelet count of 244,000. The abdomen and pelvis were examined sonog raphically, and an appropriate site was chosen for paracentesis. The skin was prepared and draped in the usual sterile fashion, and 1% lidocaine was infiltrated from the skin down through the peritonea l surface. A 19-gauge catheter-covered needle was then introduced into the peritoneal space, the cat heter was advanced and the needle was withdrawn, and thereafter peritoneal fluid was withdrawn. The catheter was then removed and a dressing was applied. The fluid was discarded if the clinician did n ot order diagnostic testing of the fluid. COMPARISON: 09/17/2021 FINDINGS: Access site: Left lower quadrant Needle: One-Step centesis catheter with introducer needle. Fluid volume and description: 4.9 L of milky ascites fluid Fluid sent for diagnostic testing: No Medications: 1% lidocaine for local anaesthesia. Complications: None. IMPRESSION: Successful ultrasound-guided paracentesis. Reviewed by: Jennifer Ceron MD on 09/27/2021 4:22 PM PST Approved by: Jennifer Ceron MD on 09/27/2021 4:22 PM PST Station ID: [id number]
== END 2021-09-27 14:06 | disposition home or self-care (01) ==
LOC: DI 14:05
PROVIDERS: ATTEND Nurse Practitioner Adult Health
DX: C22.1 Intrahepatic bile duct carcinoma (principal); R18.0 Malignant ascites
CPT/HCPCS: 49083

== ENCOUNTER 2021-10-03 14:10 | Outpatient (CLI) | payer MEDICARE, BC ==
--- NOTE | 2021-10-03 16:10 | CONSULTATION NOTE ---
Palliative Care Follow Up - Referral Referring Provider: Jesica Morton PA-C Time of Visit: 1410 -1500 Referral setting: Home Referral Reason: Pain of neoplastic origin/Ascites/Venous Stasis/DTI bilat heels/CA - Information Sources Records reviewed: Previous records reviewed History/Review of Systems obtained from: Patient, Family (Pennie ) Exam limitations: Clinical condition (mild STM deficits) - History of Present Illness Update Brief HPI Update: This is a serina 71-year-old woman with cholangiocarcinoma with liver mets, receiving carboplatinum/gemcitabine and continues with recurrent ascites, abdominal pain tumor site, and severe lower extremity edema. Today they are concerned regarding her worsening lower extremity edema, she does have development of venous stasis, at this point it is slightly reddened, no breaks or cellulitis noted, but is at high risk. She did have a paracentesis last Thursday, and her abdomen has reaccumulated fluid, but more striking is the worsening edema in her legs up through her hips and sacrum. Patient had previously been trialed on diuretics, had been unable to tolerate because of hypotension, poor intake, and declining functional status. Today she is doing much better her blood pressure is 132/80 sitting, 130/80 standing she does remain somewhat tacky at 116. She did receive a unit of packed red blood cells for a low hemoglobin of 7.3 and feeling much better as far as fatigue and energy. She still continues with some dyspnea, but not as severe. We have been titrating her fentanyl up, she is now at 100 mcg of Duragesic as of this a.m. She is still using the hydromorphone 2-3 times a day for breakthrough pain but this is more related to awakening and also increased activity. Currently she feels like she is feeling fairly good and benefiting from her recent titration. Past Medical History: Hypertension, high cholesterol, GERD, colon polyps, hepatitis, diverticulitis, cholelithiasis, osteoarthritis, fatigue Social History - Living Situation Living arrangement: At home Living Situation: With spouse/s.o. 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 They have been together for 12 years, they have 2 serina dogs. He has significant amount of support from friends and family in the community. They are looking to hire some increased support as patient cannot be left alone at this point in time. I also thinking further into the future about what kind of care she may need towards end-of-life. They are in a good space at this point though certainly both fatigue, I looking forward to the holidays. Medications/Allergies - Medications Home Medications: Ambulatory Orders Medication Instructions Recorded Confirmed Ondansetron [Zuplenz] 8 mg PO PRN PRN 07/08/21 10/03/21 Prochlorperazine [Compazine] 10 mg PO Q6H PRN 07/08/21 10/03/21 HYDROmorphone [Dilaudid] 4 mg PO Q3HR PRN 07/29/21 10/03/21 Naloxone HCl Nasal [Narcan] 1 spray JOSE DE JESUS PRN PRN 07/29/21 10/03/21 Omeprazole Magnesium 20 mg PO DAILY 07/29/21 10/03/21 Senna [Senokot] 8.6 mg PO TID MDD 2 tabs tid 07/29/21 10/03/21 Rivaroxaban [Xarelto] 20 mg PO DAILY 08/26/21 10/03/21 Alprazolam [Xanax] 0.25 mg PO TID PRN 09/25/21 10/03/21 fentaNYL [Fentanyl 75mcg patch] 100 mcg TOP .Q3DAYS 09/25/21 10/03/21 Furosemide [Lasix] 10 mg PO DAILY 10/03/21 10/03/21 Spironolactone [Aldactone] 25 mg PO DAILY 10/03/21 10/03/21 - Allergies Allergies/Adverse Reactions: Allergies Allergy/AdvReac Type Severity Reaction Status Date / Time codeine Allergy Nausea Verified 09/07/21 18:23 shellfish derived AdvReac Emesis Verified 09/07/21 18:23 Review of Systems - Constitutional Constitutional: reports: Fatigue (improved with transfusion), Weakness, Other (cachetic with muscle wasting in upper extremities and temporal wasting) - Eyes Eyes: reports: Blurred vision, Vision loss - Ears, Nose & Throat Ears, Nose & Throat: reports: Hearing loss, Hearing aids, Dry mouth - Cardiovascular Cardiovascular: reports: Edema (anasarca feet/legs/hips/sacrum worsening), Lightheadedness, Exertional dyspnea, Decr. exercise tolerance - Respiratory Respiratory: reports: SOB with exertion. denies: Cough, SOB at rest - Gastrointestinal Gastrointestinal: reports: Abdominal distention, Bloating, Early satiety, Other (taste changes). denies: Constipation - Genitourinary Genitourinary: reports: Frequency, Nocturia (1 x night) - Musculoskeletal Musculoskeletal: reports: Muscle aches, Stiffness, Limited range of motion, Muscle weakness - Integumentary Integumentary: reports: Pruritis, Dryness, Other (LE "rash") - Neurological Neurological: reports: General weakness, Memory problems - Psychiatric Psychiatric: reports: Depression, Anxiety - Hematologic/Lymphatic Hematologic/Lymph: reports: Anemia - All Other Systems All Other Systems: reports: Reviewed and negative Physical Exam - Vital Signs Temperature: 97.5 C - Physical Exam General Appearance: positive: Alert, Mild distress (related to ascites pain) Eyes Bilateral: positive: Normal inspection, No scleral icterus ENT: positive: Other (mask on) Neck: positive: Trachea midline Cardiovascular: positive: Tachycardia Respiratory: positive: Diminished in bases Abdomen: positive: Tenderness, Distended, Taut Skin: positive: Dryness, Pressure wound (see HPI improved) Extremities: positive: Pedal edema Neurologic/Psychiatric: positive: Oriented x3, Weakness, Depressed mood/affect, Flat affect Palliative Care - POLST Patient has POLST: Yes POLST Status: DNR, Selective Treatment Pain: Pain improved, Location (midepisatric area; generalized discomfort of ascites; most discomfort is legs today) Constipation: Yes, Opoid induced, Managed Performance Status: Patient is ambulatory, with some improvement in functional status. Still needs assistance with Dressing and lower extremity as far as helping get up and down sometimes. She can get up and down from the couch independently though. And is able to toilet at bedtime. - Palliative Care Discussion: Continue to be challenged by multiple side effects of both the treatment and her disease process, continues to try and take this in stride. They are looking forward to the holidays and the continued break. Fanny is feeling somewhat better, and encouraged to just taking time out from her current cancer journey if possible. Results - Lab Results Lab results reviewed: Yes Impression and Recommendations - Palliative Care Impression: This is a serina 71-year-old woman with metastatic cholangiocarcinoma from the proximal duct with liver mets and ascites, she presents today with worsening anasarca and lower extremity edema. She also has some venous stasis, and is high risk for cellulitis. Patient with recent titration of her pain medication, with improvement. Palliative care continue to provide support for pain and symptom management, anticipatory guidance, and coordination of care. Recommendations/Counseling Done: 1. Neoplastic origin. Patient's been titrated up to 100 mcg patch, she is currently with a 75 and 25, if this remains adequate will order 100 mcg patches next week. She does have hydromorphone 4 mg to use for breakthrough pain. She is not experiencing any excessive sedation, constipation is currently controlled. Patient does have low-grade persistent nausea but does respond to ondansetron. 2. Venous stasis. This is multifactorial, including her worsening anasarca, her legs are tender, no breaks in the skin though has had some weeping previously. Is dull red, counseling provided watch for bright red or increased tenderness as a cysts concern for cellulitis. Patient will try some triamcinolone 0.5% to see if can decrease the inflammation. 3. DTI bilateral heels. Examination continues to show heels improving, though still with darkening pattern. Still some discomfort particularly in the left. No open areas and bogginess is not progressed. They are using pressure relief at night with floating heels. We will continue to monitor. 4. Ascites. Patient presents with persistent ascites, at this point it is tolerable. She had her last paracentesis on 1216, suspect may need one next week sometime. She is again wanting to avoid ED visit, will evaluate on Thursday for next scheduled paracentesis. 5. Lower extremity edema. This is multifactorial, patient does have adequate blood pressure today, less dizziness, will go ahead and trial low dose of the diuretics, spironolactone she has 50s and 20s, will have her take half tab of both through the weekend and see if any improvement. If tolerates and kidney function remains stable, can increase dosing. She is also been instructed to be apply Linden wraps in the a.m. with gentle pressure, continue with washing gently and patting dry and applying new ointment. If it is more irritated or redness they are to stop this and return back to the Aquaphor. Viewed my concerns regarding cellulitis, if patient with worsening pain, redness, or brightness, is to be seen at urgent care. 6. Advanced care planning. Patient continues to plan for the future in the continuum of care, at this point in time goal is to continue treatment. She is feeling somewhat better, does recognize her symptom burden will continue related to her disease. Has not really had much improvement in her ascites overall despite improvement in her CEA. Minutes with greater than 50% of this done in counseling regarding symptom management, pain control, lower extremity edema management and anticipatory guidance.
== END 2021-10-03 14:11 | disposition home or self-care (01) ==
LOC: PC 14:10
PROVIDERS: ATTEND Nurse Practitioner Adult Health
DX: Z51.5 Encounter for palliative care (principal); G89.3 Neoplasm related pain (acute) (chronic); R18.8 Other ascites; I87.8 Other specified disorders of veins; K59.03 Drug induced constipation; T40.2X5A Adverse effect of other opioids, initial encounter; L89.626 Pressure-induced deep tissue damage of left heel; L89.616 Pressure-induced deep tissue damage of right heel; Z79.891 Long term (current) use of opiate analgesic; Z79.899 Other long term (current) drug therapy; Z66 Do not resuscitate
CPT/HCPCS: 99349

== ENCOUNTER 2021-10-08 10:48 | Outpatient (CLI) | payer MEDICARE, BC ==
--- NOTE | 2021-10-08 19:24 | CONSULTATION NOTE ---
Palliative Care Follow Up - Referral Referring Provider: Jesica Morton PA-C Time of Visit: 10 60 minutes Referral setting: [facility] [place] Referral Reason: LE edema/Pain of neoplastic origin/Dyspnea/Cholangiocarcinoma - Information Sources Records reviewed: RN notes reviewed, Previous records reviewed History/Review of Systems obtained from: Patient, Family (spoke with Pennie at visit previous) Exam limitations: No limitations - History of Present Illness Update Brief HPI Update: This is a 71-year-old woman with known cholangiocarcinoma, currently receiving treatment. Had been titrated up on her fentanyl 100 mcg patch, with good response, had initiated low-dose furosemide and spironolactone at last visit to see if would help with worsening lower extremity edema, concern for worsening venous stasis. She had also been instructed to start with compression, with Linden wraps, but have not initiated over the weekend. She has not seen any improvement with the low-dose diuretics, in fact her kidney function worsened with her creatinine up to 1.1, and her GFR from 83 down to 49. Patient describes doing fairly well until Thursday, where she developed nausea, diarrhea, which she describes as "tumor pain" which is feeling stuffy up with epigastric area. Was experiencing burning sensation in lower extremities. She had severe watery diarrhea with 6-8 sessions yesterday, and 2 this AM. This was confirmed by her Jolene, who reported patient was having increased dyspnea, with wheezing, and thought she was not going to be able to make it in today. Both describe this prolonged episode seem to resolved since she got the hospital. Patient's lungs are clear, no wheezing noted. Patient does have fullness from ascites, no worsening on her baseline as well as lower extremity edema. She does have redness but is resolved, actually appears improved from visit on . When reviewed with patient, if could be food related, does describe intake of spicy greek food both Thursday night and Thursday midday. Past Medical History: Hypertension, high cholesterol, GERD, colon polyps, hepatitis, diverticulitis, cholelithiasis, osteoarthritis, fatigue Social History - Living Situation Living arrangement: At home Living Situation: With spouse/s.o. Support System: Patient lives at home with her serina Jolene, they have been together for 12 years. 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 Jolene is feeling quite a bit of caregiver fatigue, particularly over the last 24 to 48 hours with patient's worsening condition. We did discuss the challenges of having caregivers versus his support, but did recommend moving forward in identifying and starting to integrate a caregiver into their team. She verbalized understanding. Medications/Allergies - Medications Home Medications: Ambulatory Orders Medication Instructions Recorded Confirmed Ondansetron [Zuplenz] 8 mg PO PRN PRN 07/08/21 10/08/21 Prochlorperazine [Compazine] 10 mg PO Q6H PRN 07/08/21 10/08/21 HYDROmorphone [Dilaudid] 4 - 8 mg PO Q3HR PRN 07/29/21 10/08/21 Naloxone HCl Nasal [Narcan] 1 spray JOSE DE JESUS PRN PRN 07/29/21 10/08/21 Omeprazole Magnesium 20 mg PO DAILY 07/29/21 10/08/21 Senna [Senokot] 8.6 mg PO TID MDD 2 tabs tid 07/29/21 10/08/21 Rivaroxaban [Xarelto] 20 mg PO DAILY 08/26/21 10/08/21 Alprazolam [Xanax] 0.25 mg PO TID PRN 09/25/21 10/08/21 fentaNYL 100 MCG PATCH [Duragesic 100 mcg TOP .72 HOURS 10/08/21 10/08/21 100mcg patch] - Allergies Allergies/Adverse Reactions: Allergies Allergy/AdvReac Type Severity Reaction Status Date / Time codeine Allergy Nausea Verified 09/07/21 18:23 shellfish derived AdvReac Emesis Verified 09/07/21 18:23 Review of Systems - Constitutional Constitutional: reports: Fatigue (persistent but sleeping at noc), Weakness, Other (cachetic with muscle wasting in upper extremities and temporal wasting) - Eyes Eyes: reports: Blurred vision, Vision loss - Ears, Nose & Throat Ears, Nose & Throat: reports: Hearing loss, Hearing aids, Dry mouth - Cardiovascular Cardiovascular: reports: Edema (anasarca feet/legs/hips/sacrum without improvement with diuretics low dose/ did not wrap), Lightheadedness, Exertional dyspnea, Decr. exercise tolerance - Respiratory Respiratory: reports: Wheezing (reports cleared; had been worsening over 24-48 hours), SOB with exertion. denies: Cough, SOB at rest - Gastrointestinal Gastrointestinal: reports: Abdominal distention, Diarrhea (resolved after this am), Nausea, Bloating, Early satiety, Other (taste changes). denies: Constipation - Genitourinary Genitourinary: reports: Frequency, Nocturia (1 x night) - Musculoskeletal Musculoskeletal: reports: Muscle aches, Stiffness, Limited range of motion, Muscle weakness - Integumentary Integumentary: reports: Pruritis, Dryness, Other (LE venous stasis) - Neurological Neurological: reports: General weakness, Memory problems - Psychiatric Psychiatric: reports: Depression, Anxiety - Hematologic/Lymphatic Hematologic/Lymph: reports: Anemia (8.0) - All Other Systems All Other Systems: reports: Reviewed and negative Physical Exam - Vital Signs Temperature: 37.7 C Pulse Rate: 115 Respiratory Rate: 18 O2 Saturation: 99 (ra @ rest) Blood Pressure: 147/88 - Physical Exam General Appearance: positive: No acute distress, Alert Eyes Bilateral: positive: Normal inspection, No scleral icterus ENT: positive: Other (mask on) Neck: positive: Trachea midline Cardiovascular: positive: Tachycardia Respiratory: positive: Diminished in bases. negative: No respiratory distress, Wheezes Abdomen: positive: Tenderness, Distended, Taut Skin: positive: Dryness, Pressure wound (bilat heels) Extremities: positive: Pedal edema (no change; 3+ up to sacrum) Neurologic/Psychiatric: positive: Oriented x3, Mood/affect nml, Weakness, Flat affect Palliative Care - POLST Patient has POLST: Yes POLST Status: DNR, Selective Treatment Pain: Severity (10), Comment (pain exacerbated over last couple days 10 with increase use of hydromorphone; today currently better) Tiredness/Fatigue: Severe (7-10) Drowsiness/Sedation: Severe (7-10) Nausea: Severe (7-10) Anorexia: Moderate (4-6) Dyspnea: Moderate (4-6) Depression: Mild (1-3) Anxiety: Moderate (4-6) Feelings of wellbeing/Perceived Quality of Life: Fair, Acceptable, Worsening Sleep: Sleeps well Constipation: Yes, Managed, Comment (diarrhea x 2 days) Performance Status: Patient had needed assistance more so than baseline the last couple days, this is spurred them to moving forward on getting some caregiving assistance. Patient is ambulatory, but does have walker available if needed. - Palliative Care Discussion: Discussion with Jolene regarding her concerns of patient's continued decline, does want to support patient with what ever her goals are, though does recognize clinically patient has continued to need recurrent paracentesis, high symptom burden, worsening pain though they met with oncology that was "positive" with CA-19 improving. This is somewhat perplexing, and continues to challenge defining goals of care. Patient does understand the seriousness of her illness, at this point in time feels like she can continue on. Though she does get ambivalent sometimes with high symptom burden, continue to support patient and in complex journey. Results - Lab Results Lab results reviewed: Yes Lab and Imaging Results: Sodium 129, creatinine 1.1, GFR 49 down from 83 last week, protein 5.1, albumin 2.1Hemoglobin 8.0 with hematocrit 24.2 Impression and Recommendations - Palliative Care Impression: This is a 71-year-old woman with metastatic cholangiocarcinoma, currently receiving treatment. She has had recurrent ascites, met with oncology, ordering paracentesis for this week. Patient was trialed on low-dose diuretics without any improvement of lower extremity edema, she had wanted to retry. Kidney studies worsening, will discontinue. Patient had an acute episode last 2448 hrs. included worsening pain, diarrhea, wheezing and increased shortness of breath, this is spontaneously resolved. She is feeling better at this point time. Palliative care continue to follow for pain and symptom management and anticipatory guidance Recommendations/Counseling Done: 1. Pain of neoplastic origin. This continues to be mostly focused at the epigastric area, describes it as "stuffiness" reports had exacerbation of pain over the weekend. Currently still rates a 7 out of 10 but does feel like overall it had improved with titration of Duragesic/fentanyl up to 100 mcg patch. You patch but on today, we will go ahead and order fentanyl 100 mcg patches it would be community pharmacy. 2. Lower extremity edema. Diuretics have not made any difference, nor did patient feel any less swelling. Patient continues with taut ascites, lower extremity edema multifactorial as patient's proteins continue to be low, seated pressure, and often sits with legs dependent. They had not trialed Linden wrapping, reviewed recommendation to wrap to tolerance. 3. Venous stasis. Skin continues to be intact, dull red with no weeping at this point in time. Patient did not think they have picked up triamcinolone cream, at this point no signs or symptoms of infection. 4. CKD. GFR decreased with initiation of even small doses of diuretics, will go ahead and discontinue as was only on 4 4 days. Does have pending paracentesis, hopefully this will help as well. 5. Caregiver fatigue. To spoke with Jolene about recommending moving forward with caregiving support. Only starting to integrate into their care team, and to identify caregiver availability. She does have some friends who are helping her find caregiving support. 6. Advanced care planning. Patient continues to weigh benefits of burdens of treatments moving forward, is continue treatment today. Though she had a fairly severe and acute set of symptoms unknown etiology over the weekend, does feel like she wants to continue. Continue to revisit goals of care in the context of patient's symptom burden, and quality of life. 60 minutes Review of labs, imaging, oncology notes, [id number] with patient, regarding exam and counseling, counseling with caregiver and Jolene.
== END 2021-10-08 10:49 | disposition home or self-care (01) ==
LOC: PC 10:48
PROVIDERS: ATTEND Nurse Practitioner Adult Health
DX: Z51.5 Encounter for palliative care (principal); G89.3 Neoplasm related pain (acute) (chronic); R18.8 Other ascites; I87.8 Other specified disorders of veins; N18.9 Chronic kidney disease, unspecified; R53.83 Other fatigue; R11.0 Nausea; R63.0 Anorexia; C22.1 Intrahepatic bile duct carcinoma; R06.00 Dyspnea, unspecified; Z79.891 Long term (current) use of opiate analgesic; Z79.899 Other long term (current) drug therapy; Z74.1 Need for assistance with personal care; Z66 Do not resuscitate
CPT/HCPCS: 99215

== ENCOUNTER 2021-10-14 14:30 | Outpatient (CLI) | payer MEDICARE, BC ==
--- NOTE | 2021-10-21 17:44 | Ultrasound Report ---
PROCEDURE: Abdominal Paracentesis INDICATIONS: Therapeutic paracentesis cholangiocarcinoma TECHNIQUE: The indications, alternatives, benefits, risks, and complications of the procedure were explained to the patient. Written informed consent was obtained and placed in the chart. The abdomen and pelvis were examined sonographically, and an appropriate site was chosen for paracentesis. The skin was pre pared and draped in the usual sterile fashion, and 1% lidocaine was infiltrated from the skin down th rough the peritoneal surface. A 19-gauge catheter-covered needle was then introduced into the perito vianney space, the catheter was advanced and the needle was withdrawn, and thereafter peritoneal fluid w as withdrawn. The catheter was then removed and a dressing was applied. The fluid was discarded if the clinician did not order diagnostic testing of the fluid. COMPARISON: Prior studies FINDINGS: Access site: Left lower quadrant Needle: One-Step centesis catheter with introducer needle. Fluid volume and description: 5 L, opaque Fluid sent for diagnostic testing: Not requested Medications: 1% lidocaine for local anaesthesia. Complications: None. IMPRESSION: Technically successful ultrasound-guided paracentesis. Reviewed by: Vitaly Shukla MD on 10/21/2021 4:43 PM [facility] Approved by: Vitaly Shukla MD on 10/21/2021 4:43 PM [facility] Station ID: [id number]
== END 2021-10-14 14:31 | disposition home or self-care (01) ==
LOC: DI 14:30
PROVIDERS: ATTEND Internal Medicine Hematology & Oncology
DX: C22.1 Intrahepatic bile duct carcinoma (principal)
CPT/HCPCS: 49083

== ENCOUNTER 2021-10-16 14:30 | Outpatient (CLI) | payer MEDICARE, BC ==
--- NOTE | 2021-10-16 20:58 | CONSULTATION NOTE ---
Palliative Care Follow Up - Referral Referring Provider: Jesica Morton PA-C Time of Visit: 4583-0586 Referral setting: Home Referral Reason: Confusion/LE edema/Pain of neoplastic origin/Cholangiocarcinoma - Information Sources Records reviewed: Previous records reviewed History/Review of Systems obtained from: Patient, Family ( Jolene) Exam limitations: Clinical condition (patient with mild confusion) - History of Present Illness Update Brief HPI Update: This is a 71-year-old woman with known cholangiocarcinoma, who presents today with history of increasing confusion over the last several days. Patient is having difficulty tracking time and day, sleeping more, slow to respond, is ambulatory with assistance from sitting to standing, having some word finding issues, but denies any distress. Patient did have a paracentesis on Thursday, but confusion had started prior to this. Her labs did not show any significant abnormalities compared to baseline, total bilirubin is 0.5, sodium was 133, potassium 4.2, WBCs 9.6, hemoglobin was 8.5, hematocrit 25.5. Patient has continuously felt cold, but no chills or fever, lungs are diminished in the bases but clear without wheezing or rhonchi no cough. No noted change dysuria, has had decreased output but this is also related to decreased input as she has been sleeping more with decreased fluids. Did take oxygen at rest, 93%, with ambulation no drop. No recent changes in medication, had been up to 100 mcg patch but was tolerating fine on 08/08. Had added some alprazolam on 0.5 mg at bedtime because of restlessness. On examination her legs continue with venous stasis but redness has decreased and skin though taut is no weeping. She continues with severe lower extremity anasarca with swelling all the way up into her sacral area.She does continue with ascites, but reports less discomfort with recent paracentesis. She denies pain at time of visit, she has been eating less and drinking less with increased drowsiness. Past Medical History: Hypertension, high cholesterol, GERD, colon polyps, hepatitis, diverticulitis, osteoarthritis fatigue Social History - Living Situation Living arrangement: At home Living Situation: With spouse/s.o. Support System: Patient lives in the [facility] with her Jolene, they have been together for over 12 years. 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 They did start with some respite caregiving, this went okay. Jolene is wondering about having someone at night, patient is at high risk for falls and quite impulsive which has continued to increase. Concern for falls. Medications/Allergies - Medications Home Medications: Ambulatory Orders Medication Instructions Recorded Confirmed Ondansetron [Zuplenz] 8 mg PO PRN PRN 07/08/21 10/08/21 Prochlorperazine [Compazine] 10 mg PO Q6H PRN 07/08/21 10/08/21 HYDROmorphone [Dilaudid] 4 - 8 mg PO Q3HR PRN 07/29/21 10/08/21 Naloxone HCl Nasal [Narcan] 1 spray JOSE DE JESUS PRN PRN 07/29/21 10/08/21 Omeprazole Magnesium 20 mg PO DAILY 07/29/21 10/08/21 Senna [Senokot] 8.6 mg PO TID MDD 2 tabs tid 07/29/21 10/08/21 Rivaroxaban [Xarelto] 20 mg PO DAILY 08/26/21 10/08/21 Alprazolam [Xanax] 0.25 mg PO TID PRN 09/25/21 10/08/21 fentaNYL 100 MCG PATCH [Duragesic 100 mcg TOP .72 HOURS 10/08/21 10/08/21 100mcg patch] - Allergies Allergies/Adverse Reactions: Allergies Allergy/AdvReac Type Severity Reaction Status Date / Time codeine Allergy Nausea Verified 09/07/21 18:23 shellfish derived AdvReac Emesis Verified 09/07/21 18:23 Review of Systems - Constitutional Constitutional: reports: Fatigue (sleeping most of the time when up), Weakness, Other (cachetic with muscle wasting in upper extremities and temporal wasting) - Eyes Eyes: reports: Blurred vision, Vision loss - Ears, Nose & Throat Ears, Nose & Throat: reports: Hearing loss, Hearing aids, Dry mouth - Cardiovascular Cardiovascular: reports: Edema (anasarca feet/legs/hips/sacrum without improvement with diuretics low dose/ did not wrap), Lightheadedness, Exertional dyspnea, Decr. exercise tolerance - Respiratory Respiratory: reports: Wheezing, SOB with exertion. denies: Orthopnea, SOB at rest - Gastrointestinal Gastrointestinal: reports: Abdominal distention, Nausea (intermittent), Bloating, Early satiety, Other (poor intake for several days) - Genitourinary Genitourinary: reports: Frequency, Nocturia (1 x night) - Musculoskeletal Musculoskeletal: reports: Muscle aches, Stiffness, Limited range of motion, Muscle weakness - Integumentary Integumentary: reports: Pruritis, Dryness, Other (LE venous stasis) - Neurological Neurological: reports: General weakness, Memory problems (progressive confusion over last several days) - Psychiatric Psychiatric: reports: Anxiety - Hematologic/Lymphatic Hematologic/Lymph: reports: Anemia (8.5) - All Other Systems All Other Systems: reports: Reviewed and negative Physical Exam - Vital Signs Temperature: 97.5 C Pulse Rate: 103 Respiratory Rate: 18 Blood Pressure: 122/62 - Physical Exam General Appearance: positive: No acute distress, Alert Eyes Bilateral: positive: No scleral icterus Neck: positive: Trachea midline Cardiovascular: positive: Tachycardia Respiratory: positive: Diminished in bases. negative: No respiratory distress, Wheezes Abdomen: positive: Tenderness (Left side), Hepatomegaly, Bruit Skin: positive: Pallor (sallow in color). negative: Pressure wound (resolved on heels; pressure points on great toes) Extremities: positive: Pedal edema Neurologic/Psychiatric: positive: Mood/affect nml, Disoriented to time, Weakness, Flat affect Palliative Care - POLST Patient has POLST: Yes POLST Status: DNR, Selective Treatment Pain: No pain, Pain improved, Location (mid abd) Tiredness/Fatigue: Severe (7-10) Drowsiness/Sedation: Severe (7-10) Nausea: Mild (1-3) Anorexia: Moderate (4-6) Dyspnea: Moderate (4-6) Depression: Mild (1-3) Anxiety: Mild (1-3) Feelings of wellbeing/Perceived Quality of Life: Poor, Worsening Sleep: Sleep improved Constipation: Yes, Opoid induced, Managed Performance Status: Patient continues to decline functionally, has worsened with the increased confusion. She is sleeping most of the time as needed help getting from sitting to standing, is ambulatory with a cane. At night though has been getting up to the bathroom, concern for fall as she is forgetting to use any assistive devices. She is quite resistant to use the commode at night. - Palliative Care Discussion: Patient presents with some awareness of her confusion, and not to extent it is impacting her current situation. Jolene is quite concerned about patient's ongoing continued decline, and looking at treatment in the future. When asked related to patient's current quality of life, patient still remains adamant continuing treatment and "not going to quit". Again reviewed that sometimes we can do more harm than good with the chemotherapy, and actually chasing someone's demise if their body is having more trouble with the toxicities. Concern regarding scheduling rest with Jolene, had gotten switched to Thursday because of the holidays. The other question is should schedule the next paracentesis given she gets so uncomfortable and difficulty getting this on the calendar. Jolene expresses appropriate concern about patient's ability to make decisions given her worsening confusion. Support given, and reviewed at this point and see how patient either improves or declines and set course accordingly, including transition to hospice if appropriate. Results - Lab Results Lab results reviewed: Yes Impression and Recommendations - Palliative Care Impression: This is a 71-year-old woman with metastatic cholangiocarcinoma, currently receiving treatment. She has recurrent ascites, most recent paracentesis Thursday, she presents with worsening confusion, though easy to reorient she is slow to respond, disoriented to time, and is more lethargic. She did have labs on Thursday without any obvious underlying etiology, is not hypoxic, does not present at this time with any signs or symptoms of infection. Palliative care providing support for pain and symptom management and anticipatory guidance. Recommendations/Counseling Done: 1. Pain of neoplastic origin. Patient reports relief with with paracentesis on pressure pain. Patient denies any pain at her usual location of his tumor in epigastric area. She has not been asking for pain medication, but has used only when given. Given patient's sedation and lethargy and decreasing tumor marker, wondering if underlying etiology is pain is diminished with tumor burden, will trial decreasing fentanyl to 75 mcg, secondary sedation, if pain reoccurs will return to 100 mcg patch as this has been effective. 2. Confusion. This is be related to multifactorial issues as well as ongoing deterioration attributed to disease process. No obvious underlying etiology with labs, patient not hypoxic, does not present any signs or symptoms of infection. Will decrease use of sedating medications, and use only as as needed alprazalom, offer hydromorphone only if patient requests, and decrease fentanyl dosing, 75 mcg patch ordered. Patient presents today most likely with low-level dehydration as well, encouraged to awaken for fluids and food, as patient has felt better when she has managed to eat and drink on a regular basis. Patient pain 12 ounces at visit 3. Generalized weakness. Patient with severe lower extremity edema and anasarca, making patient at higher risk for falls along with difficulty managing legs. Encouraged if having difficulty at night, patient is to commode at bedside, patient verbalized understanding. Did review lift assist if patient were to have a fall, as well as encouraged need exploration of release caregiving. 4. Venous stasis. Skin continues to be intact, redness has faded, no weeping at this time. They are using Cetaphil with good response they have not been able to wrap lets, but patient has been elevating legs when resting. 5. Advanced care planning. Patient with mild confusion, concerned about worsening and ability for decision-making. Patient continues to choose to move forward with treatment, next treatment scheduled for 2 weeks, will continue to monitor status. Patient is showing signs of functional and cognitive decline despite improving tumor markers. We will continue to follow weigh benefits and burdens of being forward with treatment versus transition to hospice care. 60 minutes with greater than 50% of this done in counseling regarding pain and symptom management, management of confusion, coordination of care with oncology team
== END 2021-10-16 14:31 | disposition home or self-care (01) ==
LOC: PC 14:30
PROVIDERS: ATTEND Nurse Practitioner Adult Health
DX: Z51.5 Encounter for palliative care (principal); R41.0 Disorientation, unspecified; R46.4 Slowness and poor responsiveness; G89.3 Neoplasm related pain (acute) (chronic); R18.8 Other ascites; R53.1 Weakness; R53.83 Other fatigue; I87.8 Other specified disorders of veins; R63.0 Anorexia; C22.1 Intrahepatic bile duct carcinoma; C79.9 Secondary malignant neoplasm of unspecified site; Z79.891 Long term (current) use of opiate analgesic; Z79.899 Other long term (current) drug therapy; Z66 Do not resuscitate
CPT/HCPCS: 99350

== ENCOUNTER 2021-10-21 17:00 | Outpatient (CLI) | payer MEDICARE, BC ==
--- NOTE | 2021-10-21 19:08 | CONSULTATION NOTE ---
Palliative Care Follow Up - Referral Referring Provider: Jesica Morton PA-C Time of Visit: [id number] Referral setting: Home Referral Reason: AMS/Pain of neoplastic origin/Cholangiocarcinoma/Anasarca - Information Sources Records reviewed: Previous records reviewed History/Review of Systems obtained from: Patient, Family ( Jolene; end of visit friend Eboni joined for support) Exam limitations: Clinical condition (patient with STM deficits; mild confusion) - History of Present Illness Update Brief HPI Update: This is a 71-year-old woman with metastatic cholangiocarcinoma, who has received treatment. She originally presented in 05/01 with abdominal pain and found to have elevated liver enzymes, she underwent a ERCP at [facility] and stent was placed due to biliary stricture. She was diagnosed primary after liver biopsy, with moderately differentiated adenocarcinoma. She was started on cisplatin and gemcitabine, and did fairly poorly that was transitioned over to carboplatin and gemcitabine 07/2021. Patient has continued with significant amount of large ascites, needing intermittent paracentesis is about every 10 days, with removal of 5 L of milky fluid. Last paracentesis was 10/14. She does get significant disc comfort and pain with increasing pressure. She also presents with anasarca, has hot lower extremity edema, developing venous stasis, has had weeping, as well as bilaterally heels previously which have since improved. Her edema does reach up into her sacral area up to her lower rib cage. Despite improving CA19 clinical picture has continued to worsen. Patient had been on Xarelto for right lower lobe incidental finding of PE, has been off several days has had recurrent paracentesis requiring holding. Over the last 2 weeks she has developed increasing confusion, work-up is included ammonia level which was normal, she has not had worsening hyponatremia, her kidney functions remain still poor but does poorly challenged with diuretics. We trialed decreasing her fentanyl from 100-75, to see if this was adding to her confusion. Patient only had increased, really started 100 mcg patch today. Patient is not hypoxic, and has not had any recent medication changes. Patient may have had TIA or certainly at risk for small strokes, the decision was made not to go to the ED last week in the context of would not change current outcome. She has also not received any relief or response with diuretics and becomes hypotensive. She has had intermittent need for trans fusions, the last blood draw 10/17 was Hgb 8.2 within range for her. Confusion has manifested with some irritability, agitation, word finding difficulties, and short-term memory loss. She has very little insight to this, on arrival though at 5 pm, she thought it was 5 AM in the morning. She still is conversant, though impulsive, she has been instructed to use a walker secondary to fall risk and adamantly refuses this. Given patient's ongoing decline, and lack of response clinically to her treatment, as well as altered mental status have been in conversation with Dr. Gustafson with recommendation for transition to hospice. This is actually been the recommendation for several weeks now, but patient has been quite adamant about "not giving up" and pursuing treatment no matter what. She does understand her quality of life is not going to improve much, but was hoping for longer quantity of life. Have been discussing ongoing that there would be a transition point where harm would out weigh benefit. Palliative care is meeting with patient and today, in the context of transitioning to hospice. Patient though can still make needs known is concerned regarding patient's ongoing decline and altered mental status and would benefit from hospice support. Past Medical History: Hypertension high cholesterol GERD, colon polyps, hepatitis, diverticulitis, cholelithiasis, osteoarthritis Social History - Living Situation Living arrangement: At home Living Situation: With spouse/s.o. Support System: Patient lives in a serina home, with her Jolene. They have been together for over 12 years. Fanny describes her as a lot of her life, and is very sad to be leaving this relationship. 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 Has had a long successful career, has significant support from friends family and community. Jolene is challenged with patient's ongoing compulsivity and behaviors, does now have some hired assistance from Thursday to Thursday 9-1 pm this week. She is able to identify friends who may be able to help, she is most worried about nighttime shifts as she is experiencing significant amount of caregiver fatigue as well. Medications/Allergies - Medications Home Medications: Ambulatory Orders Medication Instructions Recorded Confirmed Ondansetron [Zuplenz] 8 mg PO PRN PRN 07/08/21 10/21/21 Prochlorperazine [Compazine] 10 mg PO Q6H PRN 07/08/21 10/21/21 HYDROmorphone [Dilaudid] 4 - 8 mg PO Q3HR PRN 07/29/21 10/21/21 Naloxone HCl Nasal [Narcan] 1 spray JOSE DE JESUS PRN PRN 07/29/21 10/21/21 Omeprazole Magnesium 20 mg PO DAILY 07/29/21 10/21/21 Senna [Senokot] 8.6 mg PO DAILY MDD 2 tabs tid 07/29/21 10/21/21 Alprazolam [Xanax] 0.25 - 0.5 mg PO TID PRN 09/25/21 10/21/21 fentaNYL 100 MCG PATCH [Duragesic 100 mcg TOP .72 HOURS 10/08/21 10/21/21 100mcg patch] Haloperidol Oral Soln [Haldol Oral 1 mg PO Q4HR PRN 10/21/21 10/21/21 Soln] - Allergies Allergies/Adverse Reactions: Allergies Allergy/AdvReac Type Severity Reaction Status Date / Time codeine Allergy Nausea Verified 09/07/21 18:23 shellfish derived AdvReac Emesis Verified 09/07/21 18:23 Review of Systems - Constitutional Constitutional: reports: Fatigue (sleeping most of the time when up), Weakness, Other (cachetic with muscle wasting in upper extremities and temporal wasting; anasarca makes this difficult to recognize) - Eyes Eyes: reports: Blurred vision, Vision loss - Ears, Nose & Throat Ears, Nose & Throat: reports: Hearing loss, Hearing aids, Dry mouth - Cardiovascular Cardiovascular: reports: Edema (anasarca feet/legs/hips/sacrum without improvement with diuretics), Lightheadedness, Exertional dyspnea, Decr. exercise tolerance - Respiratory Respiratory: reports: Wheezing (intermittent), SOB with exertion. denies: Orthopnea, SOB at rest - Gastrointestinal Gastrointestinal: reports: Abdominal distention, Nausea (intermittent), Bloating, Early satiety (has been eating better) - Genitourinary Genitourinary: reports: Frequency, Nocturia (1 x night) - Musculoskeletal Musculoskeletal: reports: Muscle aches, Stiffness, Limited range of motion, Muscle weakness, Assistive devices (has been encouraged to use the walker; uses cane) - Integumentary Integumentary: reports: Pruritis, Dryness, Other (LE venous stasis) - Neurological Neurological: reports: General weakness, Memory problems (progressive confusion over last several days) - Psychiatric Psychiatric: reports: Anxiety, Other (appropriately tearful through conversation) - Endocrine Endocrine: reports: Intolerance to cold - Hematologic/Lymphatic Hematologic/Lymph: reports: Anemia (8.2). denies: Recurrent infections - All Other Systems All Other Systems: reports: Reviewed and negative Physical Exam - Vital Signs Temperature: 97.3 C Pulse Rate: 105 Respiratory Rate: 18 O2 Saturation: 99 (ra @ rest) Blood Pressure: 122/68 - Physical Exam General Appearance: positive: Alert, Mild distress, Anxious Eyes Bilateral: positive: No scleral icterus Neck: positive: Trachea midline Cardiovascular: positive: Tachycardia Respiratory: positive: Diminished in bases. negative: No respiratory distress, Wheezes Abdomen: positive: Tenderness (Left side), Hepatomegaly, Distended, Taut Skin: positive: Pallor (sallow in color). negative: Pressure wound (resolved on heels; pressure points on great toes) Extremities: positive: Pedal edema (anasarca/ legs taut up swelling to past sacr um), Other (gait ataxic; unsteady) Neurologic/Psychiatric: positive: Disoriented to time, Weakness, Flat affect Palliative Care - POLST Patient has POLST: Yes POLST Status: DNR, Selective Treatment Pain: Location (mid epigastric area; abdominal pressure worsening again; LE with weight and swelling), Comment (Had trialed 75 mcg fentanyl patch to see if it would improve mentation, increase in pain and discomfort with increased need of hydromorphone. She is using 4 mg 3-4 x a day for BTP) Tiredness/Fatigue: Severe (7-10) Drowsiness/Sedation: Moderate (4-6) Nausea: Mild (1-3) (intermittent; using alternating ondansetron/prochloraperazine) Anorexia: Mild (1-3) (eating better last few days) Dyspnea: Moderate (4-6) Depression: Moderate (4-6) Anxiety: Moderate (4-6) Feelings of wellbeing/Perceived Quality of Life: Poor, Worsening, Comment (patient with little insight into her decline in condition) Sleep: Variable sleep pattern (up at night 3-4 x) Constipation: Yes, Opoid induced, Managed Performance Status: Patient is unsteady on her feet, this is multifactorial some balance related to her worsening neuropathy, and her lower extremity edema is quite extreme. She does need assistance with dressing, bathing, but does try to be independent. Do have a commode for nighttime use as well as walker, patient has refused up to this point to consistently use either. - Palliative Care Discussion: Patient has always known that treatment has been palliative in nature, but goals have been focused doing "something" which meant treatment related. She did have a period of time with difficulty adjusting to her current quality of life, but felt this was still acceptable. Jolene has been supportive though has seen patient's decline over the last several months and more acutely over the last couple weeks, and now is significantly and appropriately concerned with patient's altered mental status and ability to make good decisions. Did spend time with Fanny and Jolene discussing patient's current condition, concern for continuing treatment causing more harm than good, conversations with oncology in the context of recommendations to transition to hospice. Introduced hospice team, with focus on comfort, and entering into the next phase of the journey. Encouraged to set priorities for time, relationships, and end-of-life planning in celebration. Patient is appropriately tearful, concerned regarding patient's understanding and processing given her mild confusion. She would like to be able to say goodbye to the staff at the [facility] given the relationship she has formed up there. Agreed with check-in with timing of this, and hospice referral is expected on Thursday. A very good friend of hers joined us for the end of the visit, but is able to provide more support both emotionally and also to confirm her positive experiences with hospice. Did staff with hospice medical surgery nurse, regarding patient's need for paracentesis and not available until end of week. They will do a home paracentesis for symptom relief. Impression and Recommendations - Palliative Care Impression: This is a serina 71-year-old woman with metastatic cholangiocarcinoma, with recurrent ascites, requiring paracentesis at about every 10 days. Patient has had functional decline, but more acutely over the last 2 weeks cognitive decline. Patient is no longer a candidate for ongoing palliative chemotherapy with harm versus benefit, recommendation by oncology to transition to hospice. This is a difficult transition for patient, but both patient and will benefit from additional support. Palliative care providing family conference, symptom management, and counseling for transition to hospice team. Recommendations/Counseling Done: 1. Pain of neoplastic origin. This is multifactorial, acute and most discomfort is in epigastric area, describes it as "stuffiness" and fluctuates. Patient also has significant pain related to her abdominal pressure and discomfort, feels that is building again, does get relief from paracentesis. She also yudith cribes some peripheral neuropathy, though this is fluctuating as well has not added any gabapentin at this point. Patient has been managed fairly well on fentanyl 100 mcg patch, with use of hydromorphone 4 to 8 mg for breakthrough pain. 2. Anasarca. This continues to be problematic, causing increased discomfort and worsening venous stasis. Today is not having lower extremity weeping. This has resolved over the last couple weeks. She has been trialed on low-dose diuretics, secondary to worsening CKD, did not receive much response. She is elevating her feet, has had wraps on in the past but has found this difficult to maintain. 3. Venous stasis. They are continuing to apply moisture, he can them clean and elevated. Does have alteration of skin's, it pressure points on heels have resolved. 4. Altered mental status. Has had worsening cognitive changes, no identifiable underlying etiology, has received labs, medication changes, given her fluctuating impulsivity and intermittent agitation, will go ahead and initiate Haldol 0.5 mL equals 1 mg every 4 hours as needed. 5. Anxiety. Patient has had persistent anxiety that fluctuates through most of her treatment cycle. She does well with processing with her friends and family, does have alprazolam if feels worsening, they have been using 1-2 times a day. 6. Ascites. Had attempted to make arrangements with diagnostic imaging for paracentesis prior to hospice admit, unfortunately staffing does not allow this. Staffed with medical nurses director, will be prepared to provide paracentesis on after admit if needed. Patient is quite taut, and having increased discomfort. She does average about 5 L of milky fluid when drain. 7. Advance care planning. This is a difficult juncture for patient for trans itioning to hospice care, counseling provided regarding hospice benefit, support available, did discuss will still need some care home support and care on hands on. Anticipatory guidance regarding expected decline, setting of priorities and goals, and normalizing grief and loss at this juncture. Palliative care will transition to hospice. 60 minutes with greater than 50% of this done in counseling regarding transition to hospice, anticipatory guidance, pain and symptom management, coordination of care with oncology and hospice team.
== END 2021-10-21 17:01 | disposition home or self-care (01) ==
LOC: PC 17:00
PROVIDERS: ATTEND Nurse Practitioner Adult Health
DX: Z51.5 Encounter for palliative care (principal); G89.3 Neoplasm related pain (acute) (chronic); C22.7 Other specified carcinomas of liver; I87.8 Other specified disorders of veins; R41.82 Altered mental status, unspecified; F41.9 Anxiety disorder, unspecified; R18.8 Other ascites; N18.9 Chronic kidney disease, unspecified; I12.9 Hypertensive chronic kidney disease with stage 1 through stage 4 chronic kidney disease, or unspecified chronic kidney disease; Z66 Do not resuscitate
CPT/HCPCS: 99350